=== PATIENT | female | born 1940 | race Caucasian/White ===

== ENCOUNTER 2017-02-26 13:00 | Day surgery (SDC) | payer MEDICARE, BC, SELFPAY | END 2017-02-26 13:49 | disposition home or self-care (01) | PROVIDERS: Family Provider Family Medicine; Visit Provider Nurse Anesthetist, Certified Registered | DX: M46.1 Sacroiliitis, not elsewhere classified (principal) | CPT/HCPCS: 27096; G0260; J1030 ==

== ENCOUNTER → 2017-04-01 09:43 | Outpatient (POV) | payer MEDICARE, BC, SELFPAY ==
[2017-04-01 10:23] VITALS: BP 132/65; PULSE 69; RESP 16; TEMP 36.8; O2SAT 94; BMI 34.5
--- NOTE | 2017-04-01 10:45 | P.CONS_ITS ---
[facility] Pain Management SOAP Note Subjective:: This patient is a pleasant 76-year-old white female who we have been treating for low back pain and right hip pain. She has had 2 right SI joint injections with minimal and not long-lasting relief. She has had a previous fusion at L4- L5. She has significant low back pain with radiation in both legs especially on the left side. I do believe that she is exhausted all conservative therapy including injections, oral medications and physical therapy. She is not a candidate for any further surgery at this time. We will seek approval and plan on intrathecal pump trial. Objective:: Alert and oriented ?3 in no acute distress. Patient does have an antalgic gait to the left. Motor strength of the lower extremities is 5/5. There is no gross sensory deficit. 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 This will be a single shot trial with intrathecal fentanyl 25 mcg.
== END ==
PROVIDERS: Family Provider Family Medicine; PCP Family Medicine; Visit Provider Anesthesiology
DX: M51.16 Intervertebral disc disorders with radiculopathy, lumbar region (principal)
CPT/HCPCS: 99212

== ENCOUNTER → 2017-04-24 09:03 | Outpatient (POV) | payer MEDICARE, BC, SELFPAY ==
[2017-04-24 10:33] VITALS: BP 177/73; PULSE 68; RESP 18; TEMP 36.6; O2SAT 93
--- NOTE | 2017-04-24 11:25 | HMH.PMCON ---
Assessment and Plan (1) Degenerative disc disease, lumbar Current visit: Yes Status: Acute Category: Medical Code(s): M51.36 - Other intervertebral disc degeneration, lumbar region (2) Postlaminectomy syndrome Current visit: Yes Status: Acute Category: Medical Code(s): M96.1 - Postlaminectomy syndrome, not elsewhere classified - Assessment and plan all Dx Assessment and Plan for all problems:: Intrathecal pain pump trial on 05/03/2017. Placement of intrathecal pain pump system on 05/22/2017 if approved and successful HPI - Data of Consult Patient: new to practice Consult date: 04/24/17 Requesting Physician: Loi Cardoza MD Primary Care Provider: Jordan Johnson MD Family Provider: Jordan Johnson MD - Consult Narrative Reason for consult: DDD lumbar spine with radiculopathy, postlaminectomy syndrome History of present illness: Ms. Reyes is a 76 year old female referred for possible placement of intrathecal pain pump system. The patient has degenerative disc disease lumbar spine with radiculopathy as well as postlaminectomy syndrome. Patient has significant debilitation related to her back problems. This is complicated for caring for her with ALS. She is failed conservative therapy including medications, therapy, epidurals etc. she is to undergo intrathecal pain pump trial on 05/03/2017. CC: Loi Cardoza MD [facility] History Comment: Illnesses-hypertension, hyperlipidemia, GERD, diabetes mellitus, osteoarthritis, depression Comment: Operations-appendectomy, C-sections ?2, hysterectomy, cholecystectomy, knee replacements ?4, lumbar fusion, breast reductive surgery Meds Allergies Allergy/AdvReac Type Severity Reaction Status Date / Time Iodinated Contrast Media - Allergy Unknown I-HIVES Unverified 02/26/17 14:36 Oral and [IODINATED CONTRAST- ORAL AND IV DYE]
--- NOTE | 2017-04-24 11:28 | P.CONS_ITS ---
Assessment and Plan (1) Degenerative disc disease, lumbar Current visit: Yes Status: Acute Category: Medical Code(s): M51.36 - Other intervertebral disc degeneration, lumbar region (2) Postlaminectomy syndrome Current visit: Yes Status: Acute Category: Medical Code(s): M96.1 - Postlaminectomy syndrome, not elsewhere classified - Assessment and plan all Dx Assessment and Plan for all problems:: Intrathecal pain pump trial on 05/03/2017. Placement of intrathecal pain pump system on 05/22/2017 if approved and successful HPI - Data of Consult Patient: new to practice Consult date: 04/24/17 Requesting Physician: Loi Cardoza MD Primary Care Provider: Jordan Johnson MD Family Provider: Jordan Johnson MD - Consult Narrative Reason for consult: DDD lumbar spine with radiculopathy, postlaminectomy syndrome History of present illness: Ms. Reyes is a 76 year old female referred for possible placement of intrathecal pain pump system. The patient has degenerative disc disease lumbar spine with radiculopathy as well as postlaminectomy syndrome. Patient has significant debilitation related to her back problems. This is complicated for caring for her with ALS. She is failed conservative therapy including medications, therapy, epidurals etc. she is to undergo intrathecal pain pump trial on 05/03/2017. CC: Loi Cardoza MD [facility] History Comment: Illnesses-hypertension, hyperlipidemia, GERD, diabetes mellitus, osteoarthritis, depression Comment: Operations-appendectomy, C-sections ?2, hysterectomy, cholecystectomy, knee replacements ?4, lumbar fusion, breast reductive surgery Meds Allergies Allergy/AdvReac Type Severity Reaction Status Date / Time Iodinated Contrast Media - Allergy Unknown I-HIVES Unverified 02/26/17 14:36 Oral and [IODINATED CONTRAST- ORAL AND IV DYE]
== END ==
PROVIDERS: Family Provider Family Medicine; PCP Family Medicine; Visit Provider Surgery
DX: M54.16 Radiculopathy, lumbar region (principal)
CPT/HCPCS: 99212

== ENCOUNTER → 2017-05-03 08:57 | Day surgery (SDC) | payer MEDICARE, BC, SELFPAY ==
[2017-05-03] VITALS (10 sets, daily range): BP systolic 107–167; BP diastolic 52–92; PULSE 55–62; RESP 16–18; TEMP 36.6–36.7; O2SAT 93–99; BMI 34.9
--- NOTE | 2017-05-03 10:01 | PC.NURSE ---
PHYSICAL THERAPY AT BEDSIDE FOR PRE-EVAL
--- NOTE | 2017-05-03 10:32 | P.PCN_ITS ---
- Procedure Date: 05/03/17 Time: 10:32 Anesthesiologist:: Indio Lockhart MD Complications:: None Pre-procedure Diagnosis:: Postlaminectomy syndrome of the lumbar spine with lumbar radiculopathy symptoms and degenerative disc disease of lumbar spine Post-procedure Diagnosis:: Same Indications for Procedure:: This patient is a pleasant 76-year-old white female who we are treating for low back pain and right hip pain. She has failed all conservative therapy including injections, oral medications and physical therapy. She is not a candidate for any further surgery. She has had previous lumbar fusion at L4- L5. She is increasing low back pain. I do believe she would be an ideal candidate for intrathecal therapy. I have explained the risk and benefits and answered. She presents for intrathecal pump trial today. Procedure Details:: Pain pump trial Informed consent was obtained and the risk and benefits of the procedure was explained to the patient. The patient was taken to the procedure room and placed prone on the procedure table. Patient was prepped and draped in sterile fashion. C-arm fluoroscopy was used to view the lumbar spine. The skin and subcutaneous tissues were anesthetized using lidocaine. I placed a 18-gauge spinal needle into the L3-L4 interspace above her fusion and advanced until clear CSF was obtained. After this intrathecal catheter was inserted and advanced very easily to the T12 vertebral body. The needle was withdrawn. We were able to freely withdraw clear CSF through the catheter. The catheter was secured in place and the patient was taken to recovery in stable condition. Patient tolerated the procedure well with no complications. After obtaining one set of vitals patient was bolused with 25 mcg of intrathecal fentanyl single shot. We reevaluated the patient after 30 minutes to 1 hour. She was also reassessed by physical therapy. Patient was 90-100% better with pain score of a 1 out of 10. Prior to the procedure her pain score was a 8 out of 10. She was much more active and ambulatory and was walking better. This is a successful trial. Patient wants to proceed with permanent placement. Intrathecal catheter was removed without complication and a Band-Aid was placed. We will plan on permanent placement which are thecal Dilaudid 1 mg/mL to start at 0.05 mg per day. Catheter tip will be at the T12 vertebral body. Plan and Disposition:: We will plan on permanent placement of intrathecal pain pump with Dilaudid 1 mg per ml discharged at 0.05 mg/day. We will plan on permanent placement on May 22, 2017.
--- NOTE | 2017-05-03 10:57 | PC.NURSE ---
MD AT BEDSIDE AND DOSED PT @ 1101, VSS, PT REPORTS PAIN LEVEL 2/10, PT DENIES ANY CONCERNS AT THIS TIME
--- NOTE | 2017-05-03 11:59 | PC.NURSE ---
PHYSICAL THERAPY AT BEDSIDE FOR POST EVAL
--- NOTE | 2017-05-03 12:09 | PC.NURSE ---
PT SITTING IN RECLINER, STATES PAIN IS MUCH BETTER, RATES PAIN 0/10 AT THIS TIME, LUNCH TRAY PROVIDED FOR PT, PT C/O SLIGHT ITCHING BENADRYL GIVEN PER MAR, PT DENIES ANY FURTHER NEEDS/CONCERNS
--- NOTE | 2017-05-03 12:59 | PC.NURSE ---
MD AT BEDSIDE FOR POST EVAL, PT DOING WELL, REPORTS NO PAIN AT THIS TIME
[2017-05-09 15:05] LABS: POC Glucose,Bedside 123 mg/dL (70-110)
== END ==
PROVIDERS: Family Provider Family Medicine; PCP Family Medicine; Visit Provider Anesthesiology
DX: M51.16 Intervertebral disc disorders with radiculopathy, lumbar region (principal); M96.1 Postlaminectomy syndrome, not elsewhere classified; E11.9 Type 2 diabetes mellitus without complications
CPT/HCPCS: 62323; 82962

== ENCOUNTER → 2017-05-13 11:29 | Outpatient (POV) | payer MEDICARE, BC, SELFPAY ==
[2017-05-13 11:36] VITALS: BP 146/70; PULSE 68; RESP 20; O2SAT 96; BMI 35.2
--- NOTE | 2017-05-13 12:20 | HMH.PAINSOAP ---
[facility] Pain Management SOAP Note Subjective:: Patient is a pleasant 76-year-old white female who olives up today after a intrathecal pain pump trial. Patient did very well after her trial and states that she got 90% relief for the entire day. Patient did have some itching with it however. Patient is ready to proceed with her permanent placement. She is scheduled for May 22. Patient states that she wants to become more functional and begin to lose weight. Patient's pain is in her low back. She states her pain is achy dull and constant. She does take Lyrica which helps her significantly. Patient is not on any blood thinners. ROS General: no recent weight change, no fever, no sleep disturbances Respiratory: no cough, no shortness of air, no recurring pulmonary infections Cardiovascular/Peripheral Vascular: No chest pain, No palpitations, no edema, no shortness of breath. Gastrointestinal: no incontinence, normal bowel movements reported Genitourinary: no incontinence Musculoskeletal: Back pain Psychiatric: normal mood/ affect, Neurological: [denies weakness in extremities], [denies balance issues] Objective:: Physical Exam General: Alert and oriented x3, no acute distress, pleasant and cooperative, [on room air] Lungs: Resps E/U, Symmetrical chest expansion, Eyes: PERRL Musculoskeletal: Flexion and extension of lumbar spine somewhat guarded secondary to pain, deep tendon reflexes normal, strength in upper and lower extremities [5/5], slightly antalgic gait noted Neurological: speech clear, global risk management director equal, no gross sensory deficits Assessment:: Postlaminectomy syndrome of the lumbar spine with lumbar radiculopathy Plan:: We will plan to move forward with the permanent pain pump placement on May 22. Patient is not on any blood thinners. Patient has been educated on realistic expectations of the therapy. Patient has had a successful pain pump trial. We will start the patient on Dilaudid 1 mg/mL and start her dose of 0.05 mg per day per Dr. Lockhart. This note was dictated using voice recognition software and may contain errors or omissions
--- NOTE | 2017-05-13 12:23 | P.CONS_ITS ---
[facility] Pain Management SOAP Note Subjective:: Patient is a pleasant 76-year-old white female who olives up today after a intrathecal pain pump trial. Patient did very well after her trial and states that she got 90% relief for the entire day. Patient did have some itching with it however. Patient is ready to proceed with her permanent placement. She is scheduled for May 22. Patient states that she wants to become more functional and begin to lose weight. Patient's pain is in her low back. She states her pain is achy dull and constant. She does take Lyrica which helps her significantly. Patient is not on any blood thinners. ROS General: no recent weight change, no fever, no sleep disturbances Respiratory: no cough, no shortness of air, no recurring pulmonary infections Cardiovascular/Peripheral Vascular: No chest pain, No palpitations, no edema, no shortness of breath. Gastrointestinal: no incontinence, normal bowel movements reported Genitourinary: no incontinence Musculoskeletal: Back pain Psychiatric: normal mood/ affect, Neurological: [denies weakness in extremities], [denies balance issues] Objective:: Physical Exam General: Alert and oriented x3, no acute distress, pleasant and cooperative, [ on room air] Lungs: Resps E/U, Symmetrical chest expansion, Eyes: PERRL Musculoskeletal: Flexion and extension of lumbar spine somewhat guarded secondary to pain, deep tendon reflexes normal, strength in upper and lower extremities [5/5], slightly antalgic gait noted Neurological: speech clear, scrap dealer equal, no gross sensory deficits Assessment:: Postlaminectomy syndrome of the lumbar spine with lumbar radiculopathy Plan:: We will plan to move forward with the permanent pain pump placement on May 22. Patient is not on any blood thinners. Patient has been educated on realistic expectations of the therapy. Patient has had a successful pain pump trial. We will start the patient on Dilaudid 1 mg/mL and start her dose of 0.05 mg per day per Dr. Lockhart. This note was dictated using voice recognition software and may contain errors or omissions
== END ==
PROVIDERS: Family Provider Family Medicine; PCP Family Medicine; Visit Provider Clinical Nurse Specialist Family Health
DX: M54.16 Radiculopathy, lumbar region (principal)
CPT/HCPCS: 99212

== ENCOUNTER 2017-05-22 07:27 | Day surgery (SDC) | payer MEDICARE, BC, SELFPAY ==
[2017-05-21 12:08] VITALS: BMI 34.5
[2017-05-22 08:04] VITALS: BP 149/84; PULSE 66; RESP 18; TEMP 36.8; O2SAT 97
[2017-05-22 08:24] LABS: POC Glucose,Bedside 102 mg/dL (70-110)
--- NOTE | 2017-05-22 08:30 | P.PN_ITS ---
[facility] Anesthesia Checklist - Patient Identification Patient Identification: Arm Band, Verbal (Name & ) - Structural Data Admitted From: Home Planned Operative Procedure/s: pain pump Consent for Planned Operative Procedure(s) Verified: Yes Verified Documents: Surgical Consent - Chart Verification Results Verified: CBC, BMP - Additional verifications Patient : No Anesthesia Reactions: No Hx Blood Transfusions: No Blood Transfusion Reaction: No Cephalosporin Allergy: No Previous Colonoscopy: No - Cardiovascular Assessment Heart Sounds: S1 & S2 Pulse Strength: Baseline Pulse Rhythm: Regular Peripheral Edema: No - Airway Assessment C-Spine Mobility Assessed: Yes TMJ Mobility Assessed: Yes Dentition: Good Dentition - Neurological Assessment Level of Consciousness: Awake, Alert, Appropriate Hx Seizures: No Numbness or tingling in extremities: No - Anesthesia Plan Anesthesia Risk discussed: Yes Anesthesia Plan: Verified ASA Class: III Anesthesia Type: MAC [facility] Anesthesia HX I have reviewed the patient's past medical history: Yes Medical History: Reports:: Diabetes Mellitus Type 2, Gastroesophageal Reflux Disease(GERD), Hiatal Hernia, Hyperlipidemia, Hypertension Denies:: Cancer, Diabetes Mellitus Type 1, MRSA, Seizures Other Medical History: Reports: Arthritis Laterality Cases: Bilateral: Total Knee Replacement Other Surgeries: Yes: Appendectomy, , Hysterectomy-TotalComment Only: Other (Lumbar fusion, breast reduction, GB) Amputation: No Fractures: Yes *Family Hx:: Asthma, Cancer, Hypertension, Stroke
[2017-05-22 08:34] LABS: Basophils # 0.1 K/mm3 (0-0.2); Basophils % 1.1 % (0.1-2.0); Eosinophils # 0.2 K/mm3 (0.0-0.4); Eosinophils % 3.2 % (0.1-12.0); Hematocrit 39.4 % (37.0-47.0); Hemoglobin 13.1 g/dL (12.2-16.2); Lymphocytes # 1.8 K/mm3 (0.7-4.5); Lymphocytes % 38.2 K/mm3 (10-50); Mean Corpuscular HGB Conc 33.4 g/dL (31.8-35.4); Mean Corpuscular Hemoglobin 29.1 pg (27.0-31.2); Mean Corpuscular Volume 87.1 fl (81-99); Mean Platelet Volume 8.2 fl (7.4-10.4); Monocytes # 0.4 K/mm3 (0.1-1.0); Monocytes % 8.1 % (1.7-9.3); Neutrophils # 2.3 K/mm3 (1.8-7.8); Neutrophils % 49.3 % (37.0-80.0); Platelet Count 217 K/mm3 (142-424); Red Blood Count 4.52 M/mm3 (4.20-5.40); Red Cell Distribution Width 13.5 % (11.5-17.5); White Blood Count 4.6 K/mm3 (4.8-10.8)
[2017-05-22 08:40] LABS: Anion Gap 11.8 mEq/L (5-15); Blood Urea Nitrogen 26 mg/dL (7-18); Carbon Dioxide 30 mmol/L (21.0-32.0); Chloride 100 mmol/L (98-107); Creatinine Clearance Estimated 63 mL/min (0-300); Creatinine,Serum 0.73 mg/dL (0.55-1.02); Estimated Glomerular Filt Rate 78 ml/min (>60); GFR (African American) 94 ML/MIN (>60); Glucose 103 mg/dL (74-106); Potassium 3.8 mmoL/L (3.5-5.1); Sodium 138 mmol/L (136-145)
--- NOTE | 2017-05-22 10:26 | P.OP_ITS ---
Date of procedure: 05/22/17 Pre-op Diagnosis:: Degenerative disc disease of lumbar spine with lumbar radiculopathy symptoms and postlaminectomy syndrome of lumbar spine. Post-op Diagnosis:: Same Procedure performed:: Permanent placement intrathecal catheter with tunneling for permanent intrathecal pain pump Surgeon:: Indio Lockhart MD CLINIC BUSINESS MANAGER:: Joe Dennis Anesthesia: MAC Estimated blood loss (mL): 5 Clinical Note:: This patient is a pleasant 76-year-old white female who we are treating for low back pain and right hip pain. She has failed all conservative treatment including injections, oral medications and physical therapy. She is not a candidate for any further surgery. She had previous lumbar fusion at L4-L5 and has increasing low back pain. She had a successful neuropsychological evaluation and had a successful intrathecal pump trial with 90% relief in her pain symptoms. She presents for permanent placement of intrathecal pain pump and cath today. We will start her on Dilaudid 1 mg/mL to start at 0.1 mg per day. I have explained the risk and benefits and answered all questions. Operative findings:: None Operative note:: Informed consent was obtained and the risk and benefits of the procedure was explained to the patient. Patient was taken to the OR and placed prone on the procedure table. She was prepped and draped in sterile fashion. C-arm fluoroscopy was used to view the lumbar. The skin and subcutaneous tissues adjacent to the L3-L4 interspace were anesthetized using lidocaine. I made an incision and dissected down to the lumbar paraspinous fascia. A 14-gauge spinal needle was then inserted in the next into the L3-L4 interspace above her hardware. After obtaining clear CSF intrathecal catheter was inserted and advanced very easily to the T10 vertebral body. The stylet of the catheter and the needle were withdrawn. The catheter was secured to the lumbar paraspinous fascia with an anchoring device and 2-0 Prolene. I prepared the pump with 20 mL 's of intrathecal Dilaudid 1 mg/mL while Dr. Cardoza prepared the pump pocket. I tunneled the catheter from the back to the pump pocket and attached the catheter to the pump. Both incisions were irrigated with bacitracin solution. The pump was anchored to the fascia with 2-0 Prolene. We were able to freely withdraw clear CSF through the side-port. Both incisions were then closed with 2-0 Vicryl followed by 4-0 nylon. The patient was placed in an abdominal binder taken to recovery in stable condition. The pump was interrogated and started at 0.1 mg per day of intrathecal Dilaudid. Patient tolerated the procedure well with no complications. We will follow-up with this patient in 2 weeks. The patient and the patient's family were counseled on side effects and risk of oversedation. If the patient experiences any side effects or signs or symptoms of oversedation there to go to the nearest emergency room and also call us in the pain clinic. We will initiate PTC at the 2 week appointment. Condition: stable Disposition: PACU Complications:: None
--- NOTE | 2017-05-22 10:43 | P.OP_ITS ---
Date of procedure: 05/22/17 Pre-op Diagnosis:: Postlaminectomy syndrome of the lumbar spine with radiculopathy, degenerative disc disease of the lumbar spine Post-op Diagnosis:: Same Procedure performed:: Placement of intrathecal pain pump generator Surgeon:: Loi Cardoza MD Anesthesia: MAC, local, LMA Estimated blood loss (mL): 5 Operative findings:: Not applicable Operative note:: Patient was placed prone on the operating table in her back and flank regions were prepped and draped in sterile fashion. Once adequate IV sedation was obtained via anesthesia and local anesthesia Xylocaine with epinephrine, a paraspinal incision was made by which was placed an intrathecal catheter into the intrathecal space to the area desired by . At this point a right flank incision was made after local anesthesia obtained under which made a pocket for placement of the reservoir. Catheter was passed from the paraspinal incision to the the pocket incision utilizing a tunneling device.. Generator connected to the catheter which is placed in the past. CSF was aspirated from the generator noting patency of the system. The subcutaneous tissues and closure impersistent 2-0 Vicryl. Skin was closed with stitches of 4 -0 nylon. Glue dressing and a binder applied to the wound. Patient tolerated the procedure well and was taken to recovery room in stable condition. Condition: stable Disposition: PACU Specimens:: None Complications:: None
[2017-05-22 11:13] VITALS: BP 129/75; PULSE 66; RESP 18; TEMP 36.7; O2SAT 90
[2017-05-22 11:24] VITALS: BP 103/61; PULSE 64; RESP 18; O2SAT 97
[2017-05-22 11:36] VITALS: BP 108/67; PULSE 59; RESP 18; TEMP 36.7; O2SAT 97
== END 2017-05-22 11:36 | disposition home or self-care (01) ==
LOC: OR 07:29
PROVIDERS: Family Provider Family Medicine; PCP Family Medicine; Visit Provider Anesthesiology
DX: M51.16 Intervertebral disc disorders with radiculopathy, lumbar region (principal); M96.1 Postlaminectomy syndrome, not elsewhere classified; Z79.899 Other long term (current) drug therapy
CPT/HCPCS: 62350; 62362; 80048; 82962; 85025; 96374; C1755; C1772; J3370

== ENCOUNTER → 2017-06-03 11:32 | Outpatient (POV) | payer MEDICARE, BC, SELFPAY ==
--- NOTE | 2017-06-03 12:17 | HMH.PMPROC ---
- Procedure Date: 06/03/17 Time: 12:15 Anesthesiologist:: Jessika Arnold APRN Complications:: None Pre-procedure Diagnosis:: degenerative disc disease of the lumbar spine with lumbar radiculopathy symptoms and postlaminectomy syndrome Post-procedure Diagnosis:: Same Indications for Procedure:: Patient is a pleasant 77-year-old white female who presents today for follow-up after intrathecal pain pump placement. Patient has been doing very well. Her stitches have been removed. Patient site clean and dry with no sign symptoms of infection. Patient states she is doing well with no side effects. Patient currently on Dilaudid 0.05 mg a day. Patient rates her pain a 3 out of 10 today. However she has has had some bad days where her pain ranges about an 8. Patient states her pain is achy and dull. Patient is active and helps with her 's care. ROS General: no recent weight change, no fever, no sleep disturbances Respiratory: no cough, no shortness of air, no recurring pulmonary infections Cardiovascular/Peripheral Vascular: No chest pain, No palpitations, no edema, no shortness of breath. Gastrointestinal: no incontinence, normal bowel movements reported Genitourinary: no incontinence Musculoskeletal: Back pain Psychiatric: normal mood/ affect, Neurological: [denies weakness in extremities], [denies balance issues] Physical Exam General: Alert and oriented x3, no acute distress, pleasant and cooperative, [on room air] Lungs: Resps E/U, Symmetrical chest expansion, Eyes: PERRL Musculoskeletal: Flexion and extension of lumbar spine somewhat guarded secondary to pain, deep tendon reflexes normal, strength in upper and lower extremities [5/5], slightly antalgic gait noted skin: Area over the pump shows no redness or drainage. Neurological: speech clear, despatching and receiving clerk equal, no gross sensory deficits Procedure Details:: Informed consent was obtained and the risks and benefits of the procedure were explained to the patient. Patient was taken to the procedure room where noninvasive monitoring was placed including noninvasive blood pressure cuff and noninvasive pulse oximeter. Patient's rate was changed from 0.05 mg a day of Dilaudid to 0.06 mg a day of Dilaudid. Patient's PTC was set up with 0.006 mg over 10 minutes every 4 hours with a max of 6 in a 24-hour period. Patient tolerated the procedure well Plan and Disposition:: I will follow-up with this patient in 2 weeks we will reassess her symptoms at that time. Patient has been instructed to call the office if she has any side effects prior to her visit.
--- NOTE | 2017-06-03 12:20 | P.PCN_ITS ---
- Procedure Date: 06/03/17 Time: 12:15 Anesthesiologist:: Jessika Arnold APRN Complications:: None Pre-procedure Diagnosis:: degenerative disc disease of the lumbar spine with lumbar radiculopathy symptoms and postlaminectomy syndrome Post-procedure Diagnosis:: Same Indications for Procedure:: Patient is a pleasant 77-year-old white female who presents today for follow-up after intrathecal pain pump placement. Patient has been doing very well. Her stitches have been removed. Patient site clean and dry with no sign symptoms of infection. Patient states she is doing well with no side effects. Patient currently on Dilaudid 0.05 mg a day. Patient rates her pain a 3 out of 10 today. However she has has had some bad days where her pain ranges about an 8. Patient states her pain is achy and dull. Patient is active and helps with her 's care. ROS General: no recent weight change, no fever, no sleep disturbances Respiratory: no cough, no shortness of air, no recurring pulmonary infections Cardiovascular/Peripheral Vascular: No chest pain, No palpitations, no edema, no shortness of breath. Gastrointestinal: no incontinence, normal bowel movements reported Genitourinary: no incontinence Musculoskeletal: Back pain Psychiatric: normal mood/ affect, Neurological: [denies weakness in extremities], [denies balance issues] Physical Exam General: Alert and oriented x3, no acute distress, pleasant and cooperative, [ on room air] Lungs: Resps E/U, Symmetrical chest expansion, Eyes: PERRL Musculoskeletal: Flexion and extension of lumbar spine somewhat guarded secondary to pain, deep tendon reflexes normal, strength in upper and lower extremities [5/5], slightly antalgic gait noted skin: Area over the pump shows no redness or drainage. Neurological: speech clear, under cutter equal, no gross sensory deficits Procedure Details:: Informed consent was obtained and the risks and benefits of the procedure were explained to the patient. Patient was taken to the procedure room where noninvasive monitoring was placed including noninvasive blood pressure cuff and noninvasive pulse oximeter. Patient's rate was changed from 0.05 mg a day of Dilaudid to 0.06 mg a day of Dilaudid. Patient's PTC was set up with 0.006 mg over 10 minutes every 4 hours with a max of 6 in a 24-hour period. Patient tolerated the procedure well Plan and Disposition:: I will follow-up with this patient in 2 weeks we will reassess her symptoms at that time. Patient has been instructed to call the office if she has any side effects prior to her visit.
[2017-06-03 12:23] VITALS: BP 125/72; PULSE 62; RESP 20; TEMP 36.7; O2SAT 92; BMI 34.7
== END ==
PROVIDERS: Family Provider Family Medicine; PCP Family Medicine; Visit Provider Clinical Nurse Specialist Family Health
DX: M54.16 Radiculopathy, lumbar region (principal)
CPT/HCPCS: 95991

== ENCOUNTER → 2017-06-18 11:17 | Outpatient (POV) | payer MEDICARE, BC, SELFPAY ==
[2017-06-18 11:29] VITALS: BP 138/75; PULSE 67; RESP 18; TEMP 36.2; O2SAT 98; BMI 34.9
--- NOTE | 2017-06-18 12:40 | HMH.PMPROC ---
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 Patient is doing very well with her current intrathecal Dilaudid dose of 0.06 mg a day. Patient rates her pain a 3 out of 10 today. Patient states she is having no side effects today. Patient states she does not use her bolus very much. Patient is having some right piriformis pain along with some left ankle pain. She has an appointment with the casing mixer. Patient would like small increase in her intrathecal therapy today and she is also interested in home refill. ROS General: no recent weight change, no fever, no sleep disturbances Respiratory: no cough, no shortness of air, no recurring pulmonary infections Cardiovascular/Peripheral Vascular: No chest pain, No palpitations, no edema, no shortness of breath. Gastrointestinal: no incontinence, normal bowel movements reported Genitourinary: no incontinence Musculoskeletal: Back pain, right piriformis pain, left ankle pain Psychiatric: normal mood/ affect, [denies depression], [denies anxiety] Neurological: [denies weakness in extremities], [denies balance issues] Physical Exam General: Alert and oriented x3, no acute distress, pleasant and cooperative, [on room air] Lungs: Resps E/U, Symmetrical chest expansion, Eyes: PERRL Musculoskeletal: Flexion and extension of bar spine somewhat guarded secondary to pain, deep tendon reflexes normal, strength in upper and lower extremities [5/5], slightly antalgic gait noted Neurological: speech clear, sales and merchandising representative equal, no gross sensory deficits Procedure Details:: Informed consent was obtained and the risk and benefits of the procedure were explained to the patient. Patient was taken to the procedure room where noninvasive monitoring was placed including noninvasive blood pressure cuff and noninvasive pulse oximeter. Patient's rate was changed from 0.0 6 mg of Dilaudid a day to 0.075 mg of Dilaudid a day. Patient's PTC remains at 0.006 mg over 10 minutes every 4 hours. Patient tolerated the procedure well. Plan and Disposition:: We will begin the process of getting this patient and listed and enrolled in our home refill program. Patient will follow-up as needed. Patient is to call if she is interested in a piriformis injection or in any further evaluation of her left ankle. She was instructed to call the office if she shows any side effects from increase in pain pump. This note was dictated using voice recognition software and may contain errors or omissions
--- NOTE | 2017-06-18 12:45 | P.PCN_ITS ---
- Procedure Date: 06/18/17 Time: 11:50 Anesthesiologist:: Jessika Arnold APRN Complications:: None Pre-procedure Diagnosis:: Degenerative disc disease of the lumbar spine with lumbar radiculopathy symptoms and postlaminectomy syndrome Post-procedure Diagnosis:: Same Indications for Procedure:: Patient is a pleasant 77-year-old white female who presents today for follow- up. Patient is doing very well with her current intrathecal Dilaudid dose of 0.06 mg a day. Patient rates her pain a 3 out of 10 today. Patient states she is having no side effects today. Patient states she does not use her bolus very much. Patient is having some right piriformis pain along with some left ankle pain. She has an appointment with the decal applier. Patient would like small increase in her intrathecal therapy today and she is also interested in home refill. ROS General: no recent weight change, no fever, no sleep disturbances Respiratory: no cough, no shortness of air, no recurring pulmonary infections Cardiovascular/Peripheral Vascular: No chest pain, No palpitations, no edema, no shortness of breath. Gastrointestinal: no incontinence, normal bowel movements reported Genitourinary: no incontinence Musculoskeletal: Back pain, right piriformis pain, left ankle pain Psychiatric: normal mood/ affect, [denies depression], [denies anxiety] Neurological: [denies weakness in extremities], [denies balance issues] Physical Exam General: Alert and oriented x3, no acute distress, pleasant and cooperative, [ on room air] Lungs: Resps E/U, Symmetrical chest expansion, Eyes: PERRL Musculoskeletal: Flexion and extension of bar spine somewhat guarded secondary to pain, deep tendon reflexes normal, strength in upper and lower extremities [5 /5], slightly antalgic gait noted Neurological: speech clear, consumer insights specialist equal, no gross sensory deficits Procedure Details:: Informed consent was obtained and the risk and benefits of the procedure were explained to the patient. Patient was taken to the procedure room where noninvasive monitoring was placed including noninvasive blood pressure cuff and noninvasive pulse oximeter. Patient's rate was changed from 0.0 6 mg of Dilaudid a day to 0.075 mg of Dilaudid a day. Patient's PTC remains at 0.006 mg over 10 minutes every 4 hours. Patient tolerated the procedure well. Plan and Disposition:: We will begin the process of getting this patient and listed and enrolled in our home refill program. Patient will follow-up as needed. Patient is to call if she is interested in a piriformis injection or in any further evaluation of her left ankle. She was instructed to call the office if she shows any side effects from increase in pain pump. This note was dictated using voice recognition software and may contain errors or omissions
--- NOTE | 2017-07-02 13:26 | PC.PHONENOTE ---
Called in Rx for Diclofenac 75mg BID with 2 refills per providers order. pt instructed to stop taking Meloxicam. understanding verbalized
== END ==
PROVIDERS: Family Provider Family Medicine; PCP Family Medicine; Visit Provider Clinical Nurse Specialist Family Health
DX: M54.16 Radiculopathy, lumbar region (principal)
CPT/HCPCS: 95991

== ENCOUNTER → 2017-08-06 09:51 | Outpatient (POV) | payer MEDICARE, BC, SELFPAY ==
[2017-08-06 10:14] VITALS: BP 132/69; PULSE 55; RESP 18; O2SAT 98; BMI 41.0
--- NOTE | 2017-08-06 12:03 | HMH.PAINSOAP ---
[facility] Pain Management SOAP Note Subjective:: Patient is a pleasant 77-year-old white female who presents today for follow-up after right piriformis injection. She states she has no pain since then. Patient is also doing well with her intrathecal Dilaudid pain pump. Patient is going to be doing home refill. Patient has been diagnosed with charcot ankle syndrome. Patient is being followed by a medical education specialist for this. Patient and I discussed the procedure if she needed an MRI on her ankle. Patient rates her pain at 3 out of 10 today. And denies any side effects to her current intrathecal infusion. ROS General: no recent weight change, no fever, no sleep disturbances Respiratory: no cough, no shortness of air, no recurring pulmonary infections Cardiovascular/Peripheral Vascular: No chest pain, No palpitations, no edema, no shortness of breath. Gastrointestinal: no incontinence, normal bowel movements reported Genitourinary: no incontinence Musculoskeletal: Back pain, left ankle pain Psychiatric: normal mood/ affect Neurological: [denies weakness in extremities], [denies balance issues] Objective:: Physical Exam General: Alert and oriented x3, no acute distress, pleasant and cooperative, [on room air] Lungs: Resps E/U, Symmetrical chest expansion, Eyes: PERRL Musculoskeletal: Flexion and extension of lumbar spine somewhat guarded secondary to pain, deep tendon reflexes normal, strength in upper and lower extremities [5/5], [abnormal gait noted], patient does have a cast and boot on left ankle Neurological: speech clear, tuber machine operator equal, no gross sensory deficits Assessment:: Degenerative disc disease of the lumbar spine, lumbar radiculopathy, postlaminectomy syndrome, charcot syndrome Plan:: We will follow-up with this patient in 6 months. Patient is going to be continuing home refill program. Patient's going to be followed by a medical education specialist in regards to her ankle pain. Patient is doing extremely well at this time. This note was dictated using voice recognition software and may contain errors or omissions
--- NOTE | 2017-08-06 12:07 | P.CONS_ITS ---
[facility] Pain Management SOAP Note Subjective:: Patient is a pleasant 77-year-old white female who presents today for follow-up after right piriformis injection. She states she has no pain since then. Patient is also doing well with her intrathecal Dilaudid pain pump. Patient is going to be doing home refill. Patient has been diagnosed with charcot ankle syndrome. Patient is being followed by a battalion chief for this. Patient and I discussed the procedure if she needed an MRI on her ankle. Patient rates her pain at 3 out of 10 today. And denies any side effects to her current intrathecal infusion. ROS General: no recent weight change, no fever, no sleep disturbances Respiratory: no cough, no shortness of air, no recurring pulmonary infections Cardiovascular/Peripheral Vascular: No chest pain, No palpitations, no edema, no shortness of breath. Gastrointestinal: no incontinence, normal bowel movements reported Genitourinary: no incontinence Musculoskeletal: Back pain, left ankle pain Psychiatric: normal mood/ affect Neurological: [denies weakness in extremities], [denies balance issues] Objective:: Physical Exam General: Alert and oriented x3, no acute distress, pleasant and cooperative, [ on room air] Lungs: Resps E/U, Symmetrical chest expansion, Eyes: PERRL Musculoskeletal: Flexion and extension of lumbar spine somewhat guarded secondary to pain, deep tendon reflexes normal, strength in upper and lower extremities [5/5], [abnormal gait noted], patient does have a cast and boot on left ankle Neurological: speech clear, manager cost equal, no gross sensory deficits Assessment:: Degenerative disc disease of the lumbar spine, lumbar radiculopathy, postlaminectomy syndrome, charcot syndrome Plan:: We will follow-up with this patient in 6 months. Patient is going to be continuing home refill program. Patient's going to be followed by a battalion chief in regards to her ankle pain. Patient is doing extremely well at this time. This note was dictated using voice recognition software and may contain errors or omissions
== END ==
PROVIDERS: Family Provider Family Medicine; PCP Family Medicine; Visit Provider Clinical Nurse Specialist Family Health
DX: M54.16 Radiculopathy, lumbar region (principal); A52.16 Charcot's arthropathy (tabetic)
CPT/HCPCS: 99212

== ENCOUNTER → 2017-09-03 11:14 | Outpatient (CLI) | payer MEDICARE, BC, SELFPAY ==
--- NOTE | 2017-09-03 11:15 | MM_ITS ---
MM Dig screening mamm BI w/CAD ORDERING PHYSICIAN : Jordan Johnson MD PATIENT AGE: 77 years GENDER: Female COMPARISON: We called & had been awaiting outside studies from [facility]. However none have arrived.. Study now has been presented back to me at this time for interpretation INDICATION: ITS.REASON: SCREENING There is a history of bilateral breast reduction. Patient uses estrogen cream apparently. No new complaints Family history. Noncontributory TECHNIQUE: Standard CC and MLO images were obtained. R2 CAD reviewed. FINDINGS: Lower density breast with minimal to moderate fibrolinear elements bilaterally some scattered areas of nodularity but no dominant mass nor suspicious calcifications in either breast. I believe a bilateral follow-up in one year would be adequate and would be recommended, and encouraged to confirm stable baseline character of what most likely some scattered small insignificant nodular densities. For example there is a tiny 3.5 mm nodule at the right retroareolar region with minimal calcification and does not appear to be significance. Also deep lateral left breast Benign intramammary lymph node most likely accounts for the density deep axillary left breast on cc view 8.5 mm. . IMPRESSION: Outside films could not be obtained No suspicious lesions or findings or masses. There are some mild asymmetry of the breast minor asymmetric densities which are not of concern and follow-up in one year adequate. Minor asymmetry likely in part related to Previous breast reduction Bilateral follow-up recommended and would be encouraged to confirm stable baseline character BI-RADS Category: 2 Benign Finding(s) RECOMMENDED FOLLOW-UP: 1YR 1 YEAR FOLLOW-UP (A letter has been sent to the patient regarding results of the study.)
[2017-09-03 12:45] LABS: Basophils % 0.6 % (0.1-2.0); Eosinophils # 0.1 K/mm3 (0.0-0.4); Eosinophils % 3.4 % (0.1-12.0); Hematocrit 34.6 % (37.0-47.0); Hemoglobin 11.3 g/dL (12.2-16.2); Lymphocytes # 1.4 K/mm3 (0.7-4.5); Lymphocytes % 36.5 K/mm3 (10-50); Mean Corpuscular HGB Conc 32.7 g/dL (31.8-35.4); Mean Corpuscular Volume 85.6 fl (81-99); Monocytes # 0.3 K/mm3 (0.1-1.0); Monocytes % 7.4 % (1.7-9.3); Neutrophils % 52.1 % (37.0-80.0); Platelet Count 207 K/mm3 (142-424); Red Blood Count 4.05 M/mm3 (4.20-5.40); Red Cell Distribution Width 13.8 % (11.5-17.5); White Blood Count 3.8 K/mm3 (4.8-10.8)
[2017-09-03 13:10] LABS: Hemoglobin A1C 5.6 % (0.0-7.0)
[2017-09-03 13:11] LABS: Alanine Aminotransferase 30 U/L (12-78); Albumin Level 3.8 gm/dL (3.4-5.0); Albumin/Globulin Ratio 1.3 (1.1-1.8); Alkaline Phosphatase 47 U/L (46-116); Aspartate Amino Transferase 27 U/L (15-37); Bilirubin,Total 0.6 mg/dL (0.2-1.0); Blood Urea Nitrogen 20 mg/dL (7-18); Calcium 8.8 mg/dL (8.5-10.1); Carbon Dioxide 27 mmol/L (21.0-32.0); Chloride 100 mmol/L (98-107); Chol/HDL Ratio 7.9 (1-3.5); Cholesterol 143 mg/dL (140-200); Creatinine,Serum 0.83 mg/dL (0.55-1.02); Estimated Glomerular Filt Rate 67 ml/min (>60); GFR (African American) 81 ML/MIN (>60); Glucose 90 mg/dL (74-106); HDL Cholesterol 18 mg/dL (29-89); LDL Cholesterol 65 mg/dL (0-130); Sodium 136 mmol/L (136-145); Thyroid Stimulating Hormone 1.06 uIU/ml (0.358-3.740); Total Protein,Serum 6.8 gm/dL (6.4-8.2); Triglycerides 298 mg/dL (30-200); VLDL Cholesterol 60 mg/dL (0-40)
[2017-09-03 16:30] LABS: Creatinine,Urine Random 44 mg/dL (20-320)
[2017-09-05 08:05] LABS: Vitamin D 25 Hydroxy 24.6 ng/mL (30.0-100.0)
[2017-09-05 08:08] LABS: Microalbumin, Urine 3.1 ug/mL (Not Estab.)
== END ==
PROVIDERS: Family Provider Family Medicine; PCP Family Medicine; Visit Provider Family Medicine
DX: Z12.31 Encounter for screening mammogram for malignant neoplasm of breast (principal); Z79.899 Other long term (current) drug therapy; E11.9 Type 2 diabetes mellitus without complications; E78.5 Hyperlipidemia, unspecified
CPT/HCPCS: 36415; 77067; 80053; 80061; 82043; 82570; 82652; 83036; 84443; 85025

== ENCOUNTER → 2018-01-07 11:45 | Outpatient (POV) | payer MEDICARE, BC, SELFPAY ==
[2018-01-07 11:53] VITALS: BP 149/71; PULSE 61; RESP 18; O2SAT 98; BMI 33.5
--- NOTE | 2018-01-07 12:20 | HMH.PAINSOAP ---
[facility] Pain Management SOAP Note Subjective:: Patient is a pleasant 77-year-old white female who presents today for follow-up. Patient has an intrathecal pain pump with Dilaudid at this time. Patient is doing extremely well. She denies any side effects. Patient is having her urine drug screen by home refill. Patient is currently on a dose of 0.075 mg/day. Patient rates her pain a 0 out of 10 ROS General: no recent weight change, no fever, no sleep disturbances Respiratory: no cough, no shortness of air, no recurring pulmonary infections Cardiovascular/Peripheral Vascular: No chest pain, No palpitations, no edema, no shortness of breath. Gastrointestinal: no incontinence, normal bowel movements reported Genitourinary: no incontinence Musculoskeletal: Foot pain at times back pain at times Psychiatric: normal mood/ affect, Neurological: [denies weakness in extremities], [denies balance issues] Objective:: Physical Exam General: Alert and oriented x3, no acute distress, pleasant and cooperative, [on room air] Lungs: Resps E/U, Symmetrical chest expansion, Eyes: PERRL Musculoskeletal: Flexion and extension of lumbar spine somewhat guarded secondary to pain, deep tendon reflexes normal, strength in upper and lower extremities [5/5], slightly antalgic gait noted Neurological: speech clear, executive asst equal, no gross sensory deficits Assessment:: Generative disc disease lumbar spine, lumbar radiculopathy, postlaminectomy syndrome Plan:: We will follow-up with the patient in 6 months and reassess her symptoms at that time. Patient has been instructed to call the office if she has any issues prior to her next appointment.
--- NOTE | 2018-01-07 12:23 | P.CONS_ITS ---
[facility] Pain Management SOAP Note Subjective:: Patient is a pleasant 77-year-old white female who presents today for follow-up. Patient has an intrathecal pain pump with Dilaudid at this time. Patient is doing extremely well. She denies any side effects. Patient is having her urine drug screen by home refill. Patient is currently on a dose of 0.075 mg/day. Patient rates her pain a 0 out of 10 ROS General: no recent weight change, no fever, no sleep disturbances Respiratory: no cough, no shortness of air, no recurring pulmonary infections Cardiovascular/Peripheral Vascular: No chest pain, No palpitations, no edema, no shortness of breath. Gastrointestinal: no incontinence, normal bowel movements reported Genitourinary: no incontinence Musculoskeletal: Foot pain at times back pain at times Psychiatric: normal mood/ affect, Neurological: [denies weakness in extremities], [denies balance issues] Objective:: Physical Exam General: Alert and oriented x3, no acute distress, pleasant and cooperative, [on room air] Lungs: Resps E/U, Symmetrical chest expansion, Eyes: PERRL Musculoskeletal: Flexion and extension of lumbar spine somewhat guarded secondary to pain, deep tendon reflexes normal, strength in upper and lower extremities [5/5], slightly antalgic gait noted Neurological: speech clear, horizontal boring mill set up operator equal, no gross sensory deficits Assessment:: Generative disc disease lumbar spine, lumbar radiculopathy, postlaminectomy syndrome Plan:: We will follow-up with the patient in 6 months and reassess her symptoms at that time. Patient has been instructed to call the office if she has any issues prior to her next appointment.
== END ==
PROVIDERS: PCP Family Medicine; Visit Provider Clinical Nurse Specialist Family Health
DX: M51.16 Intervertebral disc disorders with radiculopathy, lumbar region (principal); M96.1 Postlaminectomy syndrome, not elsewhere classified
CPT/HCPCS: 99202

== ENCOUNTER → 2018-01-22 12:11 | Outpatient (POV) | payer MEDICARE, BC, SELFPAY ==
[2018-01-22 12:25] VITALS: BP 154/82; PULSE 62; RESP 16; O2SAT 94; BMI 34.2
--- NOTE | 2018-01-22 12:59 | HMH.PMPROC ---
- Procedure Date: 01/22/18 Time: 13:00 Anesthesiologist:: Indio Lockhart MD Complications:: None Pre-procedure Diagnosis:: Degenerative disc disease of lumbar spine with lumbar radiculopathy symptoms Post-procedure Diagnosis:: Same Indications for Procedure:: This patient is a pleasant 77-year-old white female who we are treating for low back pain with lumbar radiculopathy symptoms. She is undergoing home refill. She underwent refill last Saturday. She was doing well up until Saturday when she had some increasing back pain. Now she is having to use her boluses and she has increasing pain in her back and somewhat down her legs. There is no changes in her neurological exam. Motor strength of lower extremities is 5/5. There is no gross sensory deficit she continues to have an antalgic gait. We will increase her intrathecal hydromorphone infusion to see if this helps with her pain symptoms. Procedure Details:: Adjustment of intrathecal pain pump Informed consent was obtained and the risk and benefits of the procedure was explained to the patient. Patient was taken to the procedure room. Pump was interrogated. Intrathecal Dilaudid infusion was things to 0.1 mg/day from 0.075 mg/day. Patient tolerated the procedure well with no complications. Plan and Disposition:: We will follow-up with her in 2 weeks. Will reevaluate symptoms at that time
== END ==
PROVIDERS: PCP Family Medicine; Visit Provider Anesthesiology
DX: M51.16 Intervertebral disc disorders with radiculopathy, lumbar region (principal)
CPT/HCPCS: 62368

== ENCOUNTER → 2018-06-10 14:02 | Outpatient (POV) | payer MEDICARE, BC, SELFPAY ==
[2018-06-10 14:19] VITALS: BP 165/81; PULSE 70; RESP 18; O2SAT 92; BMI 34.2
--- NOTE | 2018-06-10 14:37 | HMH.PMPROC ---
- Procedure Date: 06/10/18 Time: 14:37 Anesthesiologist:: Jessika Arnold APRN Complications:: None Pre-procedure Diagnosis:: Degenerative disc disease lumbar spine with lumbar radiculopathy Post-procedure Diagnosis:: Same Indications for Procedure:: Is a pleasant 78-year-old white female who presents today for intrathecal pain pump reprogram. She is currently on a 1.1 mg dose of morphine. She has had increased pain rating her pain a 6 out of 10 mostly in her low back and leg. She denies side effects to her medication. Physical Exam General: Alert and oriented x3, no acute distress, pleasant and cooperative, [on room air] Lungs: Resps E/U, Symmetrical chest expansion, Eyes: PERRL Musculoskeletal: Flexion and extension of lumbar spine somewhat guarded secondary to pain, deep tendon reflexes normal, strength in upper and lower extremities [5/5], [abnormal gait noted] Neurological: speech clear, leather novelty parts cutter equal, no gross sensory deficits Procedure Details:: Informed consent was obtained and the risk and benefits of the procedure were explained to the patient. The patient was taken to the procedure room where noninvasive monitoring was placed including noninvasive blood pressure cuff and pulse oximeter. Patient's pump was interrogated and reprogrammed. The infusion rate was increased to 0.13 mg/day. The patient tolerated the procedure well. Plan and Disposition:: I will see the patient back in 2 week and reassess her symptoms at that time. Patient's been instructed to call our office if she has any issues prior to her next appointment. Dr. Lockhart has reviewed this note and agrees with this plan of care. This note was dictated using voice recognition software and may contain errors or omissions
== END ==
PROVIDERS: PCP Family Medicine; Visit Provider Clinical Nurse Specialist Family Health
DX: M51.16 Intervertebral disc disorders with radiculopathy, lumbar region (principal)
CPT/HCPCS: 62368

== ENCOUNTER → 2018-06-24 10:45 | Outpatient (POV) | payer MEDICARE, BC, SELFPAY ==
[2018-06-24 10:49] VITALS: BP 148/75; PULSE 62; RESP 18; O2SAT 98; BMI 34.2
--- NOTE | 2018-06-24 13:06 | HMH.PMPROC ---
- Procedure Date: 06/24/18 Time: 13:06 Anesthesiologist:: Jessika Arnold APRN Complications:: None Pre-procedure Diagnosis:: Degenerative disc disease lumbar spine with lumbar radiculopathy Post-procedure Diagnosis:: Same Indications for Procedure:: Patient is a pleasant 78-year-old white female who presents today for intrathecal pain pump reprogram. She is currently on a dose of 0.13 mg of Dilaudid. Patient rates her pain a 4 out of 10. She states she needs a small increase she denies side effects. Physical Exam General: Alert and oriented x3, no acute distress, pleasant and cooperative, [on room air] Lungs: Resps E/U, Symmetrical chest expansion, Eyes: PERRL Musculoskeletal: Flexion and extension of lumbar spine somewhat guarded secondary to pain, deep tendon reflexes normal, strength in upper and lower extremities [5/5], [abnormal gait noted] Neurological: speech clear, physical testing supervisor equal, no gross sensory deficits Procedure Details:: Informed consent was obtained and the risk and benefits of the procedure were explained to the patient. The patient was taken to the procedure room where noninvasive monitoring was placed including noninvasive blood pressure cuff and pulse oximeter. Patient's pump was interrogated and reprogrammed. The infusion rate was increased to 0.17 mg/day of Dilaudid. The patient tolerated the procedure well. Plan and Disposition:: I will see the patient back at her next intrathecal pain pump refill and reprogram she is been instructed to call the office if she has any issues prior to her next appointment. Dr. Lockhart has reviewed this note and agrees with this plan of care. This note was dictated using voice recognition software and may contain errors or omissions
== END ==
PROVIDERS: PCP Family Medicine; Visit Provider Clinical Nurse Specialist Family Health
DX: M51.16 Intervertebral disc disorders with radiculopathy, lumbar region (principal)
CPT/HCPCS: 62368

== ENCOUNTER → 2018-10-20 08:07 | Outpatient (CLI) | payer MEDICARE, BC, SELFPAY ==
--- NOTE | 2018-10-20 08:30 | MM_ITS ---
MM Dig screening mamm BI w/CAD ORDERING PHYSICIAN : Jordan Johnson MD PATIENT AGE: 78 years GENDER: Female [facility] mamm[facility] studies from May 2016 HISTORY: Routine SCREENING. Utilized as Estrogen cream. No new complaints. Previous bilateral breast reduction Noncontributory family history. TECHNIQUE: Standard CC and MLO images were obtained. R2 CAD reviewed. Additional left axillary cc view included FINDINGS: Minimal residual fibroglandular elements both breast . Overall lower density breast mild diffuse fatty replacement No significant new findings compared to prior studies. No suspicious or dominant mass nor suspicious calcification. No architectural distortion. RIGHT BREAST:. No new areas of significant concern The small nodular density at the medial retroareolar region and remains stable since at least 2016. Benign appearance and can be followed LEFT BREAST:No new areas significant concern. A benign dense calcifications at the medial deep left breast. Stable lymph nodes towards axillary left breast and deep lateral left breast.. IMPRESSION: Stable bilateral mammogram. No new areas of concern. Bilateral follow-up in one year recommended BI-RADS Category: 1 Negative RECOMMENDED FOLLOW-UP: 1YR 1 YEAR FOLLOW-UP (A letter has been sent to the patient regarding results of the study.)
== END ==
PROVIDERS: PCP Family Medicine; Visit Provider Family Medicine
DX: Z12.31 Encounter for screening mammogram for malignant neoplasm of breast (principal)
CPT/HCPCS: 77067

== ENCOUNTER → 2018-10-27 08:46 | Outpatient (CLI) | payer MEDICARE, BC, SELFPAY ==
--- NOTE | 2018-10-27 08:53 | XR_ITS ---
PROCEDURE: XR SHOULDER RT MIN 2V CLINICAL INDICATION: shoulder pain COMPARISON: No exams were available for comparison FINDINGS: There are moderate to severe osteoarthritic changes of the glenohumeral joint with loss of joint space and osteophyte formation. No fracture or dislocation. Osteoarthritic changes are present at the AC joint as well. IMPRESSION: Osteoarthritis Dictated by: Giovany Mcelroy MD 10/27/2018 11:14 Signed by: <Electronically signed by Giovany Mcelroy MD in [place]> 10/27/2018 11:14
== END ==
PROVIDERS: PCP Family Medicine; Visit Provider Orthopaedic Surgery
DX: M25.511 Pain in right shoulder (principal)
CPT/HCPCS: 73030

== ENCOUNTER → 2019-11-26 09:55 | Outpatient (CLI) | payer MEDICARE, BC, SELFPAY ==
--- NOTE | 2019-11-26 10:02 | MM_ITS ---
PROCEDURE: MM DIG SCREENING MAMM BI W/CAD Digital Breast Tomosynthesis Included CLINICAL INDICATION: SCREENING There is no personal or family history of breast cancer. There has been previous breast reduction surgery. COMPARISON: MG [facility] from 05/17/2016 [facility] MM Dig screening mamm BI w/CAD from 09/03/2017 MG MM DIG SCREENING MAMM BI W/CAD from 10/20/2018 TECHNIQUE: Standard CC and MLO images and 3D Tomosynthesis was obtained. R2 CAD reviewed. FINDINGS: Moderate diffuse fibroglandular densities are seen throughout both breasts. There are couple of benign-appearing calcifications left breast. There is no new or suspicious lesion in either breast and no suspicious microcalcifications. There are small stable nodular densities near the axillary tail left breast probably low-lying nodes. IMPRESSION: Fibrofatty parenchyma no suspicious lesions seen BI-RAD Category: 2 Benign Finding(s) FOLLOW-UP: 1YR 1 Year Follow-up (A letter has been sent to the patient regarding results of the study.) Dictated by: Dr. Oni Lawrence MD 11/27/2019 13:51 Dr. Oni Lawrence MD in [place] 11/27/2019 13:51
== END ==
PROVIDERS: PCP Family Medicine; Visit Provider Family Medicine
DX: Z12.31 Encounter for screening mammogram for malignant neoplasm of breast (principal)
CPT/HCPCS: 77063; 77067

== ENCOUNTER → 2020-02-08 11:08 | Outpatient (POV) | payer MEDICARE, BC, SELFPAY ==
[2020-02-08 11:45] VITALS: BP 132/74; PULSE 74; RESP 18; TEMP 36.8; O2SAT 98; BMI 33.2
--- NOTE | 2020-02-08 12:59 | P.CONS_ITS ---
[facility] Pain Management SOAP Note Subjective:: Patient is a 79-year-old white female who presents today for follow-up. Patient has an intrathecal pain pump and is being seen by home refill. Patient was seen last year. Patient denies side effects to her medication. [facility] #[id number] reviewed and appropriate. She is on Lyrica [address] Johnson. She is also been on diclofenac 75 mg 1 p.o. twice daily. We will refill this today. Patient did have her hip replaced. Patient is not utilizing a cane at this time. She rates her pain a 0 out of 10 ROS General: no recent weight change, no fever, no sleep disturbances Respiratory: no cough, no shortness of air, no recurring pulmonary infections Cardiovascular/Peripheral Vascular: No chest pain, No palpitations, no edema, no shortness of breath. Gastrointestinal: no new onset incontinence, normal bowel movements reported Genitourinary: no new onset incontinence Musculoskeletal: Back pain at times Psychiatric: normal mood/ affect Neurological: [denies new onset weakness in extremities], [denies new onset balance issues] Objective:: Physical Exam General: Alert and oriented x3, no acute distress, pleasant and cooperative, [on room air] Lungs: Resps E/U, Symmetrical chest expansion, Eyes: PERRL Musculoskeletal: Flexion and extension of lumbar spine somewhat guarded secondary to pain, deep tendon reflexes normal, strength in upper and lower extremities [5/5], slightly antalgic gait noted Neurological: speech clear, advertising assistant manager equal, no gross sensory deficits Assessment:: Degenerative disc disease lumbar spine lumbar radiculopathy Plan:: We will see the patient back in 6 months reassess her symptoms at that time we will also refill her diclofenac 75 mg 1 p.o. twice daily and give her 3 months worth of medication. She has been instructed to call the office if she has any issues prior to her next appointment. Dr. Lockhart has reviewed this note and agrees with this plan of care. This note was dictated using voice recognition software and may contain errors or omissions [facility] History I have reviewed the patient's past medical history: Yes Medical History: Reports:: Gastroesophageal Reflux Disease(GERD), Hiatal Hernia, Hyperlipidemia, Hypertension Denies:: Cancer, Diabetes Mellitus Type 1, Diabetes Mellitus Type 2, MRSA, Seizures *Have you ever received a pneumonia vaccine?: No *Have you received a flu vaccine this season?: No Other Medical History: Reports: Arthritis. Denies: Blood Transfusion Reaction Laterality Cases: Right: Carpal Tunnel Release Other Surgeries: Yes: Appendectomy, Cholecystectomy, Colonoscopy, , EGD, Hysterectomy-Total, Other Amputation: No Fractures: No - *Social History Smoking Status: Never smoker Alcohol Intake: never *Occupational Status:: other Housing: house Household Members: other *Travel in the last 8 weeks: None Family Hx:: Asthma, Cancer, Hypertension, Stroke
== END ==
PROVIDERS: PCP Family Medicine; Visit Provider Clinical Nurse Specialist Family Health
DX: M51.16 Intervertebral disc disorders with radiculopathy, lumbar region (principal)
CPT/HCPCS: 99212

== ENCOUNTER → 2020-11-18 14:52 | Outpatient (POV) | payer MEDICARE, BC, SELFPAY ==
[2020-11-18 14:45] VITALS: BP 139/74; PULSE 90; RESP 20; TEMP 36.2; O2SAT 99; BMI 31.2
--- NOTE | 2020-11-18 14:54 | HMH.PAINSOAP ---
[facility] Pain Management SOAP Note Subjective:: Patient is a pleasant 79-year-old white female who we are treating for low back pain with lumbar radiculopathy symptoms and postlaminectomy syndrome lumbar spine. She currently has an intrathecal hydromorphone pain pump going at 0.17 mg/day. She has been told that she does need back surgery. Dr. Acevedo will not operate on her because she has not been vaccinated. Given her CT scan results she does have significant stenosis above her level of fusion and I do feel that she may need neurosurgical intervention. We will refer to Dr. Garces and Dr. Morales for evaluation to see if she needs neurosurgical intervention. In the meantime we will continue her hydromorphone pump at 0.17 mg/day with PTC boluses of 0.06 mg up to 6 times a day. Objective:: Alert and oriented x3 no acute distress. Patient does have significant difficulty walking and has neurogenic claudication symptoms. Motor strength of the lower extremities is 4 out of 5. There is no gross sensory deficit. Assessment:: Postlaminectomy syndrome lumbar spine with lumbar radiculopathy symptoms and lumbar spinal stenosis with neurogenic claudication symptoms Plan:: We will refer her to Dr. Garces and Dr. Morales for neurosurgical evaluation. She is continuing with [facility] home refill and continues with her intrathecal hydromorphone pain pump at 0.17 mg/day. [facility] History Medical History: Reports:: Gastroesophageal Reflux Disease(GERD), Hiatal Hernia, Hyperlipidemia, Hypertension Denies:: Cancer, Diabetes Mellitus Type 1, Diabetes Mellitus Type 2, MRSA, Seizures *Have you ever received a pneumonia vaccine?: No *Have you received a flu vaccine this season?: No Other Medical History: Reports: Arthritis. Denies: Blood Transfusion Reaction Laterality Cases: Right: Carpal Tunnel Release Other Surgeries: Yes: Appendectomy, Cholecystectomy, Colonoscopy, , EGD, Hysterectomy-Total, Other Amputation: No Fractures: No - *Social History Smoking Status: Never smoker Alcohol Intake: never *Occupational Status:: other Housing: house Household Members: other *Travel in the last 8 weeks: Inside the [facility] Family Hx:: Asthma, Cancer, Hypertension, Stroke
== END ==
PROVIDERS: Visit Provider Anesthesiology
DX: M96.1 Postlaminectomy syndrome, not elsewhere classified (principal); M54.16 Radiculopathy, lumbar region; M48.062 Spinal stenosis, lumbar region with neurogenic claudication
CPT/HCPCS: 99212; G0463

== ENCOUNTER → 2020-11-29 13:04 | Outpatient (CLI) | payer MEDICARE, BC, SELFPAY ==
--- NOTE | 2020-11-29 13:06 | MM_ITS ---
PROCEDURE: MM DIG SCREENING MAMM BI W/CAD Digital Breast Tomosynthesis Included CLINICAL INDICATION: SCREENING History of breast cancer. There has been previous bilateral breast reduction surgery. COMPARISON: MG [facility] MM Dig screening mamm BI w/CAD from 09/03/2017 MG MM DIG SCREENING MAMM BI W/CAD from 10/20/2018 MG MM DIG SCREENING MAMM BI W/CAD from 11/26/2019 TECHNIQUE: Standard CC and MLO images and 3D Tomosynthesis was obtained. R2 CAD reviewed. FINDINGS: Moderate diffuse fibroglandular densities are seen throughout both breast and the findings are bilateral symmetrical. There are benign-appearing calcifications left breast. There are no CAD markings. There benign-appearing nodular densities axillary tail left breast likely low-lying nodes. There is no suspicious lesion and no suspicious microcalcifications. There is very little if any post surgical scarring in either breast. IMPRESSION: Fibrofatty parenchyma with no suspicious lesions seen BI-RAD Category: 2 Benign Finding(s) FOLLOW-UP: 1YR 1 Year Follow-up (A letter has been sent to the patient regarding results of the study.) Dictated by: Dr. Oni Lawrence MD 12/15/2020 09:03 Dr. Oni Lawrence MD in [place] 12/15/2020 09:03
== END ==
PROVIDERS: PCP Family Medicine; Visit Provider Family Medicine
DX: Z12.31 Encounter for screening mammogram for malignant neoplasm of breast (principal)
CPT/HCPCS: 77063; 77067

== ENCOUNTER → 2021-12-01 15:25 | Outpatient (CLI) | payer MEDICARE, BC, SELFPAY ==
--- NOTE | 2021-12-01 15:42 | MM_ITS ---
PROCEDURE INFORMATION: Exam: MG Bilateral Screening 3D Mammography Exam date and time: 12/01/2021 3:36 PM Age: 81 years old Clinical indication: Screening examination. No family history of breast cancer. TECHNIQUE: Imaging protocol: Bilateral Screening tomosynthesis and 2D mammography including computer-aided detection (CAD) when performed. COMPARISON: 1. MG MM DIG SCREENING MAMM BI W/CAD 11/29/2020 1:21 PM 2. MG MM DIG SCREENING MAMM BI W/CAD 11/26/2019 10:06 AM 3. MG MM DIG SCREENING MAMM BI W/CAD 10/20/2018 8:37 AM 4. MG [facility] MM Dig screening mamm BI w/CAD 09/03/2017 11:26 AM FINDINGS: MAMMOGRAPHY: Breast composition: There are scattered areas of fibroglandular density. Mass: None. Architectural distortion: Stable mild diffuse architectural distortion with history of reduction mammoplasty. Calcifications: No suspicious calcifications. Asymmetric density: None. Skin thickening: None. Axillary adenopathy: None. IMPRESSION: No mammographic evidence of malignancy. Annual screening is recommended unless otherwise clinically indicated. ASSESSMENT: BI-RADS Category 2: Benign
== END ==
PROVIDERS: PCP Family Medicine; Visit Provider Family Medicine
DX: Z12.31 Encounter for screening mammogram for malignant neoplasm of breast (principal)
CPT/HCPCS: 77063; 77067

== ENCOUNTER → 2021-12-29 16:45 | Outpatient (CLI) | payer MEDICARE, BC, SELFPAY ==
[2021-12-29 18:38] LABS: Basophils # 0.1 K/mm3 (0-0.2); Basophils % 1.4 % (0.1-2.0); Eosinophils # 0.1 K/mm3 (0.0-0.4); Eosinophils % 2.1 % (0.1-12.0); Hematocrit 32.6 % (37.0-47.0); Hemoglobin 10.9 g/dL (12.2-16.2); Lymphocytes # 0.5 K/mm3 (0.7-4.5); Lymphocytes % 11.4 % (10-50); Mean Corpuscular HGB Conc 33.3 g/dL (31.8-35.4); Mean Corpuscular Hemoglobin 28.8 pg (27.0-31.2); Mean Corpuscular Volume 86.5 fl (81-99); Mean Platelet Volume 8.7 fl (7.4-10.4); Monocytes # 0.3 K/mm3 (0.1-1.0); Monocytes % 7.2 % (1.7-9.3); Neutrophils # 3.4 K/mm3 (1.8-7.8); Neutrophils % 77.9 % (37.0-80.0); Platelet Count 429 K/mm3 (142-424); Red Blood Count 3.77 M/mm3 (4.20-5.40); Red Cell Distribution Width 14.4 % (11.5-17.5); White Blood Count 4.4 K/mm3 (4.8-10.8)
[2021-12-29 18:55] LABS: Alanine Aminotransferase 24 U/L (12-78); Albumin Level 3.8 g/dl (3.5-5.0); Albumin/Globulin Ratio 1.5 (1.1-1.8); Alkaline Phosphatase 80 U/L (38-126); Anion Gap 20.5 mEq/L (5-15); Aspartate Amino Transferase 33 U/L (14-36); Bilirubin,Total 0.2 mg/dl (0.2-1.3); Blood Urea Nitrogen 21 mg/dl (7-17); Calcium 8.9 mg/dl (8.4-10.2); Carbon Dioxide 26 mmol/L (22.0-30.0); Chloride 94 mmol/L (98-107); Estimated Glomerular Filt Rate 81 ml/min (>60); GFR (African American) 98 ML/MIN (>60); Globulin 2.6 g/dL (1.3-3.2); Glucose 102 mg/dl (74-100); Potassium 4.5 mmoL/L (3.5-5.1); Sodium 136 mmol/L (136-145); Total Protein,Serum 6.4 g/dl (6.3-8.2)
== END ==
PROVIDERS: PCP Family Medicine; Visit Provider Family Medicine
DX: E11.9 Type 2 diabetes mellitus without complications (principal); Z79.84 Long term (current) use of oral hypoglycemic drugs
CPT/HCPCS: 80053; 85025

== ENCOUNTER → 2022-09-20 10:37 | Outpatient (CLI) | payer MEDICARE, BC, SELFPAY ==
--- NOTE | 2022-09-20 10:44 | MR_ITS ---
FINAL REPORT CLINICAL HISTORY: CERVICAL MYELOPATHY. RIGHT ARM PAIN, NUMBNESS AND TINGLING COMPARISON: None FINDINGS: Multiplanar MR imaging of the cervical spine was performed without contrast. On the sagittal T2-weighted images, disc degeneration and endplate changes are seen at multiple levels. There is no evidence of fracture. The vertebral alignment is normal. The cervical spinal cord has an unremarkable appearance without evidence of mass, edema or syrinx. No significant canal stenosis is identified. The cervicomedullary junction is normal. C2-3: An annular bulge is present with a small right paracentral protrusion. No significant canal or neuroforaminal narrowing is seen. C3-4: An annular bulge is present. A small central disc protrusion is present as well as uncovertebral osteophytes. There is mild right and severe left neural foraminal narrowing. C4-5: Disc osteophyte complex is present. There is moderate bilateral neural foraminal narrowing. C5-6: Disc osteophyte complex is present. There is moderate bilateral neural foraminal narrowing. C6-7: Disc osteophyte complex is present along with a small right paracentral disc protrusion that mildly indents the anterior aspect of the thecal sac. There is mild AP canal diameter stenosis of 9 mm, and moderate bilateral neural foraminal narrowing. C7-T1: An annular bulge is present. There is mild bilateral neural foraminal narrowing. IMPRESSION: Multilevel cervical disc disease as described above, with multilevel disc protrusions and multilevel neural foraminal narrowing. Reviewed, Interpreted and Dictated by Momo Mata III, MD Transcribed by Judith Light Authenticated and [facility]
== END ==
PROVIDERS: PCP Family Medicine; Visit Provider Orthopaedic Surgery Orthopaedic Surgery of the Spine
DX: G95.9 Disease of spinal cord, unspecified (principal); M54.12 Radiculopathy, cervical region
CPT/HCPCS: 72141; 76376

== ENCOUNTER → 2022-11-26 13:52 | Outpatient (CLI) | payer MEDICARE, BC, SELFPAY ==
--- NOTE | 2022-11-26 13:56 | US_ITS ---
PROCEDURE INFORMATION: Exam: US Right Breast, Complete US Left Breast, Complete Exam date and time: 11/26/2022 2:21 PM Age: 82 years old Clinical indication: Breast pain; Bilateral TECHNIQUE: Imaging protocol: Complete ultrasound of all four quadrants of the right breast and the retroareolar regions, including ultrasound of the axilla when performed. Complete ultrasound of all four quadrants of the left breast and the retroareolar regions, including ultrasound of the axilla when performed. COMPARISON: MG MM DIG SCREENING MAMM BI W/CAD 12/01/2021 3:36 PM FINDINGS: Breast: Sonographic images of both breasts including the retroareolar regions, all 4 quadrants and the axilla do not demonstrate any solid or cystic masses. No architectural distortion or acoustical shadowing. No skin thickening or axillary adenopathy. IMPRESSION: No sonographic evidence of malignancy. Annual mammographic screening is recommended at the current time unless otherwise clinically indicated. ASSESSMENT: BI-RADS Category 1: Negative
== END ==
PROVIDERS: PCP Family Medicine; Visit Provider Physician Assistant
DX: N64.4 Mastodynia (principal)
CPT/HCPCS: 76641

== ENCOUNTER → 2022-12-21 08:19 | Outpatient (CLI) | payer MEDICARE, BC, SELFPAY ==
--- NOTE | 2022-12-21 08:19 | FL_ITS ---
FINAL REPORT CLINICAL HISTORY: . dyspagia 1:23 fluoro time 846.06 DAP FINDINGS: ESOPHAGRAM HISTORY: Dysphagia. PROCEDURE: The patient ingested barium. Effervescent crystals were also administered. Spot and overhead films were obtained. 14 radiographs were obtained. Fluoro time: 1 minute 23 seconds DAP: 846.06 uGy.m2 FINDINGS: The esophagus is normal. There is a small hiatal hernia. There is no gastroesophageal reflux. Peristalsis is normal. A 13 mm barium passes through the esophagus and into the stomach without delay. IMPRESSION: Small sliding-type hiatal hernia. Films reviewed , interpreted and dictated by Dr. Mata. Transcribed by Griffin Gotti PA-C. Reviewed, Interpreted and Dictated by Momo Mata III, MD Transcribed by NEHEMIAH Gutierrez Authenticated and [facility]
--- NOTE | 2022-12-21 08:19 | CT_ITS ---
FINAL REPORT TECHNIQUE: Thin section axial CT images with coronal and sagittal reformats were performed through the neck. This study was performed with techniques to keep radiation doses as low as reasonably achievable (ALARA). Individualized dose reduction techniques using automated exposure control or adjustment of mA and/or kV according to the patient''s size were employed. CLINICAL HISTORY: Dysphagia FINDINGS: No adenopathy or mass lesion is present . Salivary glands are normal. Larynx is unremarkable. Thyroid gland is unremarkable. There is total opacification of the right sphenoid sinus and mucosal thickening of the left sphenoid sinus. Mild carotid artery calcifications are noted. IMPRESSION: Total opacification of the right sphenoid sinus. Mild carotid artery calcifications. Reviewed, Interpreted and Dictated by Momo Mata III, MD Transcribed by Irasema Ruggiero Authenticated and [facility]
== END ==
PROVIDERS: PCP Family Medicine; Visit Provider Nurse Practitioner
DX: R13.10 Dysphagia, unspecified (principal)
CPT/HCPCS: 70490; 74220

== ENCOUNTER → 2022-12-26 14:34 | Outpatient (CLI) | payer MEDICARE, BC, SELFPAY ==
--- NOTE | 2022-12-26 14:38 | MM_ITS ---
PROCEDURE INFORMATION: Exam: MG Bilateral Screening 3D Mammography Exam date and time: 12/26/2022 2:35 PM Age: 82 years old Clinical indication: Screening examination TECHNIQUE: Imaging protocol: Bilateral Screening tomosynthesis and 2D mammography including computer-aided detection (CAD) when performed. COMPARISON: 1. MG MM DIG SCREENING MAMM BI W/CAD 12/01/2021 3:36 PM 2. MG MM DIG SCREENING MAMM BI W/CAD 11/29/2020 1:21 PM FINDINGS: MAMMOGRAPHY: Breast composition: There are scattered areas of fibroglandular density. Mass: None. Architectural distortion: None. Calcifications: No suspicious calcifications. Asymmetric density: None. Skin thickening: None. Axillary adenopathy: None. IMPRESSION: No mammographic evidence of malignancy. Annual screening is recommended unless otherwise clinically indicated. ASSESSMENT: BI-RADS Category 1: Negative
== END ==
PROVIDERS: PCP Family Medicine; Visit Provider Family Medicine
DX: Z12.31 Encounter for screening mammogram for malignant neoplasm of breast (principal)
CPT/HCPCS: 77063; 77067

== ENCOUNTER → 2023-01-02 09:26 | Outpatient (CLI) | payer MEDICARE, BC, SELFPAY ==
--- NOTE | 2023-01-02 09:29 | XR_ITS ---
FINAL REPORT CLINICAL HISTORY: POST MENOPAUSAL, pt. has metal in spine and rt hip I did both forearms FINDINGS: Using right forearm, the bone mineral density of 1/3 is 0.537 g/cm2, corresponding to T-score of -2.6, consistent with osteoporosis. Using the left forearm, the bone mineral density of 1/3 is 0.513 g/cm2, corresponding to a T-score of -3.0, consistent with osteoporosis. Using the left hip, the bone mineral density of the femoral neck is 0.760 g/cm2, corresponding to a T-score of -1.5, consistent with low bone density. FRAX 10 year fracture risk is 2.4% for a hip fracture and 11% for a major osteoporotic fracture. NOTE: T-score: Standard deviation compared with peak bone mass of young adult mean. *Following the recommendations of the International Society of Bone densitometry, classification of hip BMD is based on the lower of two T-scores; total hip or femoral neck. IMPRESSION: Diminished bone mineral density consistent with osteoporosis. Reviewed, Interpreted and Dictated by Momo Mata III, MD Transcribed by Margaret Linares Authenticated and [facility]
== END ==
PROVIDERS: PCP Family Medicine; Visit Provider Physician Assistant
DX: Z78.0 Asymptomatic menopausal state (principal)
CPT/HCPCS: 77080

== ENCOUNTER 2023-08-01 10:24 | Outpatient (CLI) | payer MEDICARE, BC, SELFPAY ==
--- NOTE | 2023-08-01 10:32 | US_ITS ---
FINAL REPORT CLINICAL HISTORY: .REDNESS/DISCOLORATION LOWER EXT NL WAVEFORMS/PULSES R RICO 1.3 L RICO 1.3 R TBI 1.1 L TBI 1.2 COMPARISON: None FINDINGS: ANKLE-BRACHIAL PRESSURE INDICES Pressure indices are as follows: RIGHT LOWER EXTREMITY: Ankle-brachial pressure index: 1.25 Comments: Normal LEFT LOWER EXTREMITY: Ankle-brachial pressure index: 1.26 Comments: Normal CONCLUSION: No evidence of significant obstructive peripheral vascular disease of the lower extremities Reviewed, Interpreted and Dictated by Gato Ryan MD Transcribed by Judith Light Authenticated and . [facility]
== END 2023-08-01 23:59 | disposition home or self-care (01) ==
LOC: RT 10:25
PROVIDERS: PCP Family Medicine; Visit Provider Physician Assistant
DX: L53.9 Erythematous condition, unspecified (principal)
CPT/HCPCS: 93923

== ENCOUNTER 2023-08-15 12:37 | Outpatient (POV) | payer MEDICARE, BC, SELFPAY ==
[2023-08-15 13:46] VITALS: BP 140/64; PULSE 65; RESP 18; O2SAT 96; BMI 35.2
--- NOTE | 2023-08-15 14:39 | P.PCN_ITS ---
Procedure Date: 08/15/23 Time: 14:20 Anesthesiologist:: Jacquie Osborn APRN Complications:: None Pre-procedure Diagnosis:: Degenerative disc disease of cervical and lumbar spine with cervical and lumbar radiculopathy symptoms, chronic pain syndrome Post-procedure Diagnosis:: Same Indications for Procedure:: Patient is a pleasant 83-year-old female who presents today as a patient transfer from the [facility] location. Patient was currently being treated for degenerative disc disease of cervical and lumbar spine with cervical and lumbar radiculopathy symptoms, chronic pain syndrome. Today she rates her pain a 7 out of 10. Patient denies any new trauma or injury. She does state that she is experience a lot more pain in and around her neck that does radiate to her shoulders and her upper extremities with numbness and tingling. Patient does describe this as a chronic pain that has been going on for years and progressively worsened. Patient states the pain does interfere with her ability perform activities of daily living such as cooking and cleaning. Patient does state that she feels like she has a lot of grinding within her neck. Patient is interested in injection therapy. Patient has had multiple injections for her low back pain in the past. Patient does have a intrathecal pump in place with Dilaudid 2 mg/mL with a daily dose of 0.15 mg/day. She denies any side effects from this medication and states this really does help. She does not states she could probably use some additional adjustment. Patient is an [facility] at home refill client. Patient has had this pump in for 6 years as of May. It is also coming to the end of life with this device. It is a flowOnix pump. Patient states that she has been told by her home health nurse that she does need to see about getting this replaced as soon as possible. Patient has had prior back surgery and is fused from her thoracic down to her sacrum. Patient is prescribed pregabalin from an outside provider. Her Bradley has been reviewed and is appropriate. Physical Exam: General: Alert and oriented x3, no acute distress, pleasant and cooperative Lungs: Respirations even and unlabored, symmetrical chest expansion Eyes: PERRL Musculoskeletal: Flexion and extension of cervical [spine] somewhat guarded secondary to pain, [antalgic gait noted] positive Spurling's test Neurological: Speech clear, no gross sensory deficit FINDINGS: Multiplanar MR imaging of the cervical spine was performed without contrast. On the sagittal T2-weighted images, disc degeneration and endplate changes are seen at multiple levels. There is no evidence of fracture. The vertebral alignment is normal. The cervical spinal cord has an unremarkable appearance without evidence of mass, edema or syrinx. No significant canal stenosis is identified. The cervicomedullary junction is normal. C2-3: An annular bulge is present with a small right paracentral protrusion. No significant canal or neuroforaminal narrowing is seen. C3-4: An annular bulge is present. A small central disc protrusion is present as well as uncovertebral osteophytes. There is mild right and severe left neural foraminal narrowing. C4-5: Disc osteophyte complex is present. There is moderate bilateral neural foraminal narrowing. C5-6: Disc osteophyte complex is present. There is moderate bilateral neural foraminal narrowing. C6-7: Disc osteophyte complex is present along with a small right paracentral disc protrusion that mildly indents the anterior aspect of the thecal sac. There is mild AP canal diameter stenosis of 9 mm, and moderate bilateral neural foraminal narrowing. C7-T1: An annular bulge is present. There is mild bilateral neural foraminal narrowing. IMPRESSION: Multilevel cervical disc disease as described above, with multilevel disc protrusions and multilevel neural foraminal narrowing. Reviewed, Interpreted and Dictated by Momo Mata III, MD Transcribed by Judith Light Authenticated and . [facility] Procedure Details:: Informed consent was obtained and the risk and benefits of the procedure were explained to the patient. Patient was taken to the procedure room where noninvasive monitoring was placed including noninvasive blood pressure cuff and pulse oximeter. Patient's pump was interrogated and was reprogrammed to Dilaudid 0.165 milligrams per day. The patient tolerated the procedure well with no complications. Plan and Disposition:: Patient tolerated her intrathecal increase with no complications and was discharged neurologically intact. I did discuss at length with the patient regarding her chronic pain throughout her cervical spine with limited range of motion and a positive Spurling's test that she may benefit from a cervical epidural steroid injection. Risk and benefits were discussed with patient and she would like to proceed forward with this plan of care. Patient is not currently on any blood thinners. I also discussed the risk and benefits of the intrathecal pump replacement as well as the catheter exchange. The current catheter is not compatible with the aScentias system and we will submit to insurance for the intrathecal pump and catheter replacement due to end-of-life. Patient is agreeable to this plan of care. We will also submit for the cervical epidural steroid injection C6-C7 under fluoroscopy. Patient has tried and failed conservative therapy including continued at home exercising and stretching for longer than 12 weeks. Patient has been instructed to contact the clinic with any concerns before the next appointment. Dr. Lockhart has reviewed this note and agrees with this plan of care. This note was dictated using voice recognition software and make contain errors or omissions. -- It Is medically necessary for this patient to continue to have their intrathecal pump refilled at regular intervals. This patient had an intrathecal pain pump implanted after meeting criteria of chronic intractable pain for greater than 3 months and failing conservative treatments. Patient has committed and been compliant to the treatment plan and all planned follow up care. Since implantation of the intrathecal pain pump, the patient has had decreased pain and been more functional. Oral medications have been reduced including intake of oral opioids. Patient continues to do well with intrathecal therapy with decrease in pain symptoms and increase in functional status. Stopping intrathecal medications can lead to life threatening withdrawal, seizures, cardiac arrest, severe pain, and possible . Pumps that are not refilled at regular intervals can be damages and cause and need for replacement. We continually titrate dose and concentration to optimize pain relief and function. We are limited in concentration for certain drugs to safely deliver medications through the pump and stay within the recommendations from the Polyanalges[employer] Consensus Committee Guidelines. Depending on dose and concentration these pumps may need to be refilled sooner than 3 months as we titrate.
== END 2023-08-15 23:59 | disposition home or self-care (01) ==
PROVIDERS: Visit Provider Nurse Practitioner Family
DX: M50.123 Cervical disc disorder at C6-C7 level with radiculopathy (principal); M51.16 Intervertebral disc disorders with radiculopathy, lumbar region; G89.4 Chronic pain syndrome; Z97.8 Presence of other specified devices; Z45.1 Encounter for adjustment and management of infusion pump
CPT/HCPCS: 62368; 99202; 99212; 99213; G0463

== ENCOUNTER 2023-09-03 11:13 | Day surgery (SDC) | payer MEDICARE, BC, SELFPAY ==
[2023-09-03 11:29] VITALS: BP 136/67; PULSE 74; RESP 16; TEMP 36.6; O2SAT 92; BMI 30.9
[2023-09-03] MEDS: methylPREDNISolone ACETATE 80MG/ML VIAL 80 MG (11:39)
--- NOTE | 2023-09-03 11:42 | P.PCN_ITS ---
Procedure Date: 09/03/23 Time: 11:40 Anesthesiologist:: Carl Castaneda CRNA Complications:: None Pre-procedure Diagnosis:: Degenerative disc cervical spine multilevels. Cervical radiculopathy. Post-procedure Diagnosis:: Same. Indications for Procedure:: Patient is a pleasant 83-year-old female comes our clinic today for cervical epidural steroid injection. Patient describes posterior neck pain as constant, dull, aching. Bilateral arm radicular symptoms are constant, dull, aching. She rates her pain today 7/10. Procedure Details:: Procedure:Cervical epidural steroid injection Informed consent was obtained and the risks and benefits of the procedure were explained to the patient. The patient was taken to the procedure room and noninvasive monitors placed, including noninvasive blood pressure cuff and pulse oximeter. The neck was prepped using Chloraprep as a cleansing solution. The C6- C7 interspace was viewed using fluroscopy. The skin and subcutaneous tissues were anesthetized using lidocaine 1.5% and a 25-gauge needle. After this an 18- gauge Touhy epidural needle was placed into the C6-C7 interspace under fluroscopy guidance and advanced using loss of resistance to air until the epidural space was encountered. After confirmation of needle placement in the epidural space using contrast dye, a solution containing normal saline, 2 mL and Depo-Medrol 80 mg was incrementally injected into the cervical epidural space.~ The patient tolerated the procedure well with no complications. The patient was observed in the Pain Clinic and then discharged home neurologically intact. Plan and Disposition:: Patient was discharged without incident.
[2023-09-03 11:50] VITALS: BP 113/69; PULSE 51; RESP 18; O2SAT 98
== END 2023-09-03 11:51 | disposition home or self-care (01) ==
PROVIDERS: PCP Family Medicine; Visit Provider Nurse Anesthetist, Certified Registered
DX: M54.12 Radiculopathy, cervical region (principal)
CPT/HCPCS: 62321; J1010

== ENCOUNTER 2023-09-30 10:24 | Outpatient (POV) | payer MEDICARE, BC, SELFPAY ==
[2023-09-30 10:58] VITALS: BP 133/73; PULSE 67; RESP 16; O2SAT 94; BMI 35.2
--- NOTE | 2023-09-30 11:49 | P.PCN_ITS ---
Procedure Date: 09/30/23 Time: 11:30 Anesthesiologist:: Jacquie Osborn APRN Complications:: None Pre-procedure Diagnosis:: Degenerative disc disease of cervical and lumbar spine with cervical and lumbar radiculopathy symptoms, sacroiliitis Post-procedure Diagnosis:: Same Indications for Procedure:: Patient is a pleasant 83-year-old female who presents today for follow-up. Today she rates her pain a 5 out of 10. Patient did just have a cervical epidural steroid injection C6 or C7 on 09/03/2023. She did get 50% relief following this injection however she feels like it is already starting to wear off. Patient's complaint today however is more along her low back and hips. She describes this as an aching, throbbing sensation with some numbness that goes into her buttocks area. Patient does state the pain interferes with her ability perform activities of daily living such as cooking and cleaning. Patient does also have a intrathecal pump in place with Dilaudid 2 mg/mL with a daily dose of 0.165 mg/day. 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 Patient does state that she would like to proceed forward with this. Her Bradley has been reviewed and is appropriate. Physical Exam: General: Alert and oriented x3, no acute distress, pleasant and cooperative Lungs: Respirations even and unlabored, symmetrical chest expansion Eyes: PERRL Musculoskeletal: Flexion and extension of lumbar [spine] somewhat guarded secondary to pain, [antalgic gait noted] point tenderness along bilateral SIs with positive bilateral Dexter's, Margy's, Gaenslen's, compression and distraction exam Neurological: Speech clear, no gross sensory deficit Procedure Details:: Informed consent was obtained and the risk and benefits of the procedure were explained to the patient. Patient was taken to the procedure room where noninvasive monitoring was placed including noninvasive blood pressure cuff and pulse oximeter. Patient's pump was interrogated and was reprogrammed to Di Neboudid 0.1897. The patient tolerated the procedure well with no complications. Plan and Disposition:: Patient tolerated her intrathecal increase with no complications and was discharged neurologically intact. I did discuss with patient that she had extreme point tenderness along her right SI with point tenderness on the left and a positive bilateral Dexter's, Margy's, Gaenslen's, compression and distraction exam. I believe she would benefit from bilateral SI injections. Risk and benefits were discussed with the patient and she would like to proceed forward with this plan of care. Patient has tried and failed conservative therapy including continued at home stretching exercises greater than 6 weeks. I have also discussed over the risk and benefits of her intrathecal pain pump replacement with catheter replacement due to it not being compatible with the [employer] device. She does want to proceed forward with this plan of care. We will submit to insurance for bilateral SI injections under fluoroscopy as well as intrathecal pump and catheter replacement due to end-of-life. ICD 10 codes 83150, 04348 for pump and catheter replacement Patient has been instructed to contact the clinic with any concerns before the next appointment. Dr. Lockhart has reviewed this note and agrees with this plan of care. This note was dictated using voice recognition software and make contain errors or omissions. -- It Is medically necessary for this patient to continue to have their intrathecal pump refilled at regular intervals. This patient had an intrathecal pain pump implanted after meeting criteria of chronic intractable pain for greater than 3 months and failing conservative treatments. Patient has committed and been compliant to the treatment plan and all planned follow up care. Since implantation of the intrathecal pain pump, the patient has had decreased pain and been more functional. Oral medications have been reduced including intake of oral opioids. Patient continues to do well with intrathecal therapy with decrease in pain symptoms and increase in functional status. Stopping intrathecal medications can lead to life threatening withdrawal, seizures, cardiac arrest, severe pain, and possible . Pumps that are not refilled at regular intervals can be damages and cause and need for replacement. We continually titrate dose and concentration to optimize pain relief and function. We are limited in concentration for certain drugs to safely deliver medications through the pump and stay within the recommendations from the Polyanalgesic Consensus Committee Guidelines. Depending on dose and concentration these pumps may need to be refilled sooner than 3 months as we titrate.
== END 2023-09-30 23:59 | disposition home or self-care (01) ==
PROVIDERS: PCP Family Medicine; Visit Provider Nurse Practitioner Family
DX: G89.29 Other chronic pain (principal); M54.16 Radiculopathy, lumbar region
CPT/HCPCS: 62368; 99213; G0463

== ENCOUNTER → 2023-10-15 12:38 | Day surgery (SDC) | payer MEDICARE, BC, SELFPAY ==
[2023-10-15 13:13] VITALS: BP 140/74; PULSE 67; RESP 18; O2SAT 93
[2023-10-15 13:14] VITALS: BP 133/83; PULSE 74; RESP 16; TEMP 36.4; O2SAT 93; BMI 35.2
--- NOTE | 2023-10-15 13:19 | P.PCN_ITS ---
Procedure Date: 10/15/23 Time: 13:15 Anesthesiologist:: Carl Castaneda CRNA Complications:: None Pre-procedure Diagnosis:: Bilateral sacroiliitis Post-procedure Diagnosis:: Same. Indications for Procedure:: Patient is a pleasant 83-year-old female who comes to clinic today for bilateral sacroiliac joint injections of cortisone. Patient describes low lumbar back pain off midline bilaterally is constant, dull, aching. Patient reports having difficulty transitioning from sitting to standing due to bilateral posterior hip pain. She rates her pain 7/10. Procedure Details:: Procedure: Bilateral sacroiliac joint injections under fluoroscopy Informed consent was obtained and the risks and benefits of the procedure were explained to the patient.~ The patient was taken to the procedure room and noninvasive monitors were placed including a noninvasive blood pressure cuff and pulse oximeter.~ The patient was placed prone on the procedure table. Both hips were cleansed using Betadine as a cleansing solution. C-arm fluoroscopy was used to view the right sacroiliac joint.~ The skin and subcutaneous tissues were anesthetized using lidocaine 1.5% and a 25-gauge needle.~ After this, a 22-gauge spinal needle was inserted under fluoroscopic guidance into the inferior aspect of the right sacroiliac joint.~ Omnipaque dye was injected and good spread was seen throughout the joint.~ After this, approximately 5 mL of bupivacaine, 0.25% and Depo-Medrol, 40 mg was incrementally injected into the right sacroiliac joint. We then moved to the left sacroiliac joint.~ The skin and subcutaneous tissues were anesthetized using lidocaine 1.5% and a 25-gauge needle.~ After this, a 22- gauge spinal needle was inserted under fluoroscopic guidance into the inferior aspect of the left sacroiliac joint.~ Omnipaque dye was injected and good spread was seen throughout the joint. After this, approximately 5 mL of bupivacaine, 0.25% and Depo-Medrol, 40 mg was incrementally injected into the left sacroiliac joint.~ The patient tolerated the procedure well with no complications. The patient was observed in the Pain Clinic and then was discharged home neurologically intact. Plan and Disposition:: Patient was discharged without incident.
[2023-10-15] MEDS: BUPIVACAINE 0.25% 10ML INJ 25 MG IJ (13:21)
[2023-10-15] MEDS: LIDOCAINE 1% 5ML PF VIAL 5 ML (13:21)
[2023-10-15 13:25] VITALS: BP 144/68; PULSE 68; RESP 18; O2SAT 95
== END | disposition home or self-care (01) ==
PROVIDERS: PCP Family Medicine; Visit Provider Nurse Anesthetist, Certified Registered
DX: M46.1 Sacroiliitis, not elsewhere classified (principal)
CPT/HCPCS: 27096; G0260; J1010

== ENCOUNTER 2023-10-22 14:21 | Outpatient (POV) | payer MEDICARE, BC, SELFPAY | END 2023-10-22 23:59 | disposition home or self-care (01) | LOC: SC 14:21 | PROVIDERS: PCP Family Medicine; Visit Provider Dermatology | DX: Z00.00 Encounter for general adult medical examination without abnormal findings (principal) ==

== ENCOUNTER 2023-11-04 14:30 | Outpatient (POV) | payer MEDICARE, BC, SELFPAY ==
[2023-11-04 14:42] VITALS: BP 141/66; PULSE 71; RESP 16; O2SAT 94; BMI 34.3
--- NOTE | 2023-11-04 15:55 | EXP.PAIN.PRO ---
Procedure Date: 11/04/23 Time: 15:51 Anesthesiologist:: Jacquie Osborn APRN Complications:: None Pre-procedure Diagnosis:: Degenerative disc disease of lumbar spine with lumbar radiculopathy symptoms Post-procedure Diagnosis:: Same Indications for Procedure:: Patient is a pleasant 83-year-old female who presents today for follow-up of bilateral SI injections on 10/15/2023 along with worsening pain. Today she rates her pain a 6 out of 10. She denies any new trauma or injury. She does state that the SI injections did help more significantly along the left side and that she would rated about 50 to 60% improvement. She does however state that it is back to her baseline and is stating her pain is throughout her low back that does radiate down into primarily her right leg and describes it as a throbbing sensation with And tingling. She does state the pain interferes with her ability perform activities of daily living such as cooking and cleaning. Patient is currently managed with Dilaudid 2 mg/mL with a daily dose of 0.1897 mg/day and her pump. Patient is still waiting to have her pump replaced however was never given an update if it ever got approved. Her Bradley has been reviewed and is appropriate. Physical Exam: General: Alert and oriented x3, no acute distress, pleasant and cooperative Lungs: Respirations even and unlabored, symmetrical chest expansion Eyes: PERRL Musculoskeletal: Flexion and extension of lumbar [spine] somewhat guarded secondary to pain, [antalgic gait noted] Neurological: Speech clear, no gross sensory deficit Procedure Details:: Informed consent was obtained and the risk and benefits of the procedure were explained to the patient. Patient was taken to the procedure room where noninvasive monitoring was placed including noninvasive blood pressure cuff and pulse oximeter. Patient's pump was interrogated and was reprogrammed to Dilaudid 0.2181 mg/day. The patient tolerated the procedure well with no complications. Plan and Disposition:: Patient tolerated her intrathecal increase with no complications and was discharged neurologically intact. I did discuss with the patient that we will look into and see whether or not if her insurance is still pending for her pump replacement and make sure that she is on her next OR schedule. Due to the patient's worsening pain and her low back that does radiate all the way down her right leg I did discuss with the patient that she may benefit from lumbar epidural steroid injection. Risk and benefits were discussed with patient and she would like to proceed forward with this plan of care. Patient has tried and failed conservative therapy including continued at home stretching exercise for longer than 6 weeks. Patient will be scheduled for an LESI L4-L5 under fluoroscopy. Patient has been instructed to contact the clinic with any concerns before the next appointment. Dr. Lockhart has reviewed this note and agrees with this plan of care. This note was dictated using voice recognition software and make contain errors or omissions. All injections are used with Lidocaine or Bupivacaine and Depo Medrol.
== END 2023-11-04 23:59 | disposition home or self-care (01) ==
PROVIDERS: PCP Family Medicine; Visit Provider Nurse Practitioner Family
DX: M51.36 Other intervertebral disc degeneration, lumbar region (principal)
CPT/HCPCS: 62368; 99212; 99213; G0463

== ENCOUNTER 2023-11-19 12:27 | Outpatient (CLI) | payer MEDICARE, BC, SELFPAY ==
--- NOTE | 2023-11-19 13:04 | ECG_ITS ---
APPROVED REPORT Exam: Resting ECG HR:65 bpm ECG Measurements Heart Rate 65 AXES DC 217 P 39 QRSd 90 QRS 39 QT 413 T 43 QTc 424 Conclusion SINUS RHYTHM WITH FIRST DEGREE AV BLOCK ABNORMAL ECG UNCONFIRMED REPORT Electronically signed by : Cole Johnson MD 11/20/2023 08:25:28
== END 2023-11-19 23:59 | disposition home or self-care (01) ==
LOC: PREOP 12:28
PROVIDERS: PCP Family Medicine; Visit Provider Anesthesiology
DX: M51.16 Intervertebral disc disorders with radiculopathy, lumbar region (principal); M96.1 Postlaminectomy syndrome, not elsewhere classified
CPT/HCPCS: 62323; 93005; J1010

== ENCOUNTER 2023-11-22 11:09 | Day surgery (SDC) | payer MEDICARE, BC, SELFPAY ==
[2023-11-19 12:50] VITALS: BMI 34.2
[2023-11-19 13:15] LABS: Basophils % 0.9 % (0.1-2.0); Eosinophils # 0.1 K/mm3 (0.0-0.4); Eosinophils % 1.3 % (0.1-12.0); Hematocrit 37.5 % (37.0-47.0); Lymphocytes # 1.2 K/mm3 (0.7-4.5); Lymphocytes % 27.2 % (10-50); Mean Corpuscular Hemoglobin 29.6 pg (27.0-31.2); Mean Corpuscular Volume 92.7 fl (81-99); Mean Platelet Volume 8.7 fl (7.4-10.4); Monocytes # 0.3 K/mm3 (0.1-1.0); Monocytes % 6.9 % (1.7-9.3); Neutrophils # 2.9 K/mm3 (1.8-7.8); Neutrophils % 63.6 % (37.0-80.0); Platelet Count 251 K/mm3 (142-424); Red Blood Count 4.04 M/mm3 (4.20-5.40); Red Cell Distribution Width 14.8 % (11.5-17.5); White Blood Count 4.5 K/mm3 (4.8-10.8)
[2023-11-19 13:19] LABS: Chloride 102 mmol/L (98-107); Sodium 138 mmol/L (136-145)
[2023-11-19 13:22] LABS: Blood Urea Nitrogen 19 mg/dl (7-17); Creatinine Clearance Estimated 55 mL/min (50-200); Estimated Glomerular Filt Rate 96 ml/min (>60); GFR (African American) 116 ML/MIN (>60)
[2023-11-19 13:23] LABS: Calcium 8.9 mg/dl (8.4-10.2); Carbon Dioxide 29 mmol/L (22.0-30.0); Glucose 107 mg/dl (74-100)
[2023-11-22 11:29] VITALS: BP 134/77; PULSE 65; RESP 18; TEMP 36.5; O2SAT 95
[2023-11-22 12:02] LABS: POC Glucose,Bedside 105 (70-110)
[2023-11-22] MEDS: VANCOMYCIN/WATER FOR INJ (PEG) 1.5 GM/300 ML PIGGYBACK IV (12:06)
[2023-11-22] MEDS: LACTATED RINGERS 1000ML 1,000 ML 25 ML IV (12:06)
[2023-11-22 12:08] LABS: Basophils % 0.8 % (0.1-2.0); Eosinophils # 0.1 K/mm3 (0.0-0.4); Eosinophils % 2.5 % (0.1-12.0); Hematocrit 36.5 % (37.0-47.0); Hemoglobin 11.7 g/dL (12.2-16.2); Lymphocytes # 1.5 K/mm3 (0.7-4.5); Lymphocytes % 26.4 % (10-50); Mean Corpuscular Hemoglobin 29.1 pg (27.0-31.2); Mean Corpuscular Volume 90.9 fl (81-99); Mean Platelet Volume 8.8 fl (7.4-10.4); Monocytes # 0.4 K/mm3 (0.1-1.0); Monocytes % 6.9 % (1.7-9.3); Neutrophils # 3.6 K/mm3 (1.8-7.8); Neutrophils % 63.5 % (37.0-80.0); Platelet Count 262 K/mm3 (142-424); Red Blood Count 4.02 M/mm3 (4.20-5.40); Red Cell Distribution Width 14.9 % (11.5-17.5); White Blood Count 5.6 K/mm3 (4.8-10.8)
--- NOTE | 2023-11-22 12:29 | P.PNANES_ITS ---
[facility] Disclaimer: The information contained in this section may have been updated after the patient was seen, as this information can be updated by other users. Medical History History of ganglion cyst Presence of intrathecal pump GERD (gastroesophageal reflux disease) Diabetes HLD (hyperlipidemia) HTN (hypertension) Hiatal hernia Impacted cerumen of right ear Dysphagia Otalgia, right ear Tongue pain Surgical History History of ankle surgery History of removal of retained hardware History of lumbar surgery History of shoulder surgery History of hip replacement History of bilateral breast reduction surgery History of knee replacement History of History of cholecystectomy History of tubal ligation History of hysterectomy Hx of appendectomy Family History Other Family history of cancer Family history of cirrhosis of liver Family history of heart disease Family history of polio Family history of thyroid disease Unknown family medical history Social History (Updated 11/22/23 @ 11:37 by Kell Sen RN) Smoking Status: Never smoker second hand exposure: No alcohol intake: never substance use type: denies use current occupational status: retired and disabled Travel in the last 8 weeks: None household members: other housing: house current occupational exposures/hazards: No caffeine: Yes [facility] Anesthesia Checklist Patient Identification Patient Identification: Arm Band, Family and Verbal (Name & ) Structural Data Admitted From: Home Planned Operative Procedure/s: Intrathecal pain pump Replacement Verified Documents: Surgical Consent and History and Physical NPO Status Verified Time NPO: 07:00 (Water w/meds) Chart Verification Results Verified: CBC, BMP and ECG Additional verifications Fingerstick Blood Glucose: 105 Patient : No Anesthesia Reactions: No (NAUSEA, ITCHING) Hx Blood Transfusions: Yes Blood Transfusion Reaction: No Cardiovascular Assessment Heart Sounds: S1 & S2 Pulse Rhythm: Irregular Airway Assessment Mallampati Score:: Class II C-Spine Mobility Assessed: Yes (Limited extension) TMJ Mobility Assessed: Yes Dentition: Poor Dentition (Carried. Nothing loose per pt.) Neurological Assessment Level of Consciousness: Awake, Alert, Appropriate and Follows Commands Hx Seizures: No Numbness or tingling in extremities: Yes (CAESAR LE) Anesthesia Plan Anesthesia Risk discussed: Yes Anesthesia Plan: Verified ASA Class: III Anesthesia Type: MAC
[2023-11-22] MEDS: GENTAMICIN 80 MG/2 ML VIAL (12:56)
[2023-11-22] MEDS: SODIUM CHLORIDE 0.9% 20ML VIAL 40 ML IV (12:56)
[2023-11-22] MEDS: LIDOCAINE 1% W/EPI 1:100,000 20ML VIAL 40 ML (12:56)
[2023-11-22 13:37] VITALS: BP 145/88; PULSE 75; RESP 16; TEMP 36.4; O2SAT 96
[2023-11-22 13:47] VITALS: BP 169/95; PULSE 70; RESP 16; O2SAT 95
[2023-11-22 13:57] VITALS: BP 159/76; PULSE 68; RESP 16; O2SAT 94
[2023-11-22 14:07] VITALS: BP 168/87; PULSE 69; RESP 20; O2SAT 97
--- NOTE | 2023-11-22 15:24 | EXP.OP.NOTE ---
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 She has a nonfunctioning Flwonix pain pump system in place. We are replacing her pain pump system today. Will place a new tunneled intrathecal catheter and replaced her pain pump generator today. She is on intrathecal Dilaudid 2 mg/mL we will continue at 0.165 mg/day. Operative findings:: None Operative note:: Informed consent was obtained and the risk and benefits of the procedure were explained to the patient. The patient was taken the operating room placed prone on the procedure table. She was prepped and draped in sterile fashion. C-arm fluoroscopy was used to view the pain pump generator. The skin and subcutaneous tissues overlying the pain pump generator were anesthetized using lidocaine. I made incision dissected out the pain pump generator. I disconnected the catheter. I tied it off with 0 silk ties x 3. C-arm fluoroscopy was then used to view the lumbar spine. The skin and subcutaneous tissues adjacent to the L4-L5 interspace were anesthetized using lidocaine. I made incision dissected down to the lumbar paraspinous fascia. A 17-gauge spinal needle was inserted and advanced into the L4-5 interspace until clear CSF was obtained. After this intrathecal catheter was inserted and advanced very easily to the T8 vertebral body. The catheter was found to be in good position it was posterior and midline. Patient does have hardware all the way up to the T10 vertebral body. The stylet of the catheter and the needle were withdrawn. The catheter was secured to the fascia with an anchor device and 2-0 Prolene. I filled the pump with 20 mL of intrathecal Dilaudid 2 mg/mL. I tunneled the catheter from the back to the pump pocket and attached catheter to the pump. We were able to freely withdraw clear CSF through the sideport. The pump was then placed in the pocket with an antibiotic pouch. Both incisions were closed with 2-0 Vicryl followed by 4-0 nylon and bernarda. Patient tolerated the procedure well with no complications. Pump was interrogated and started at 0.165 mg/day with PTM boluses of 0.0165 mg up to 4 times a day with a 6-hour lockout. Patient was discharged home neurologic intact with good relief of pain symptoms. Condition: stable Disposition: PACU Complications:: None
== END 2023-11-22 14:17 | disposition home or self-care (01) ==
PROVIDERS: Nurse Anesthetist, Certified Registered; PCP Family Medicine; Visit Provider Anesthesiology
PROC: (CPT 62350; principal; 2023-11-22 12:30)
DX: M51.16 Intervertebral disc disorders with radiculopathy, lumbar region (principal); M96.1 Postlaminectomy syndrome, not elsewhere classified; M50.90 Cervical disc disorder, unspecified, unspecified cervical region; T85.112A Breakdown (mechanical) of implanted electronic neurostimulator of spinal cord electrode (lead), initial encounter; Y83.1 Surgical operation with implant of artificial internal device as the cause of abnormal reaction of the patient, or of later complication, without mention of misadventure at the time of the procedure
CPT/HCPCS: 62350; 62362; 80048; 82962; 83036; 85025; 96374; C1755; C1772; J1580; J3010; J7120; S0028

== ENCOUNTER 2023-11-28 14:03 | Outpatient (POV) | payer MEDICARE, BC, SELFPAY ==
[2023-11-28 14:16] VITALS: BP 115/67; PULSE 71; RESP 16; O2SAT 95; BMI 35.2
--- NOTE | 2023-11-28 14:30 | EXP.PAIN.PRO ---
Procedure Date: 11/28/23 Time: 14:30 Anesthesiologist:: Jacquie Osborn APRN Complications:: None Pre-procedure Diagnosis:: Degenerative disc disease of lumbar spine with lumbar radiculopathy symptoms Post-procedure Diagnosis:: Same Indications for Procedure:: Patient is a pleasant 83-year-old female who presents today for follow-up of intrathecal pain pump catheter and generator replacement on 11/22/2023. Today she rates her pain a 2 out of 10. She denies any new trauma or injury. She states overall she has done well following this procedure. Patient does state that today has not been a bad day however she has had a little bit more pain from time to time and does state that she would like to increase her pump a little bit. Patient does also state that she has little bit more trouble with the abdominal binder because she does not have as good of feeling in her hands and fingers. She is asking if there is any larger size of the abdominal binder that would be more beneficial.. Patient does also state 1 day earlier this week she did go to the bathroom and went and sat down and had significant bleeding however she was not sure where it is coming from. She states that her daughter is an RN and she ended up coming over and looking at it and told her everything looked good however there was 1 area that had clotted off. Patient is currently managed with Dilaudid 2 mg/mL with 0.165 mg/day. Patient was decreased a little bit from the pump change amount. She denies any side effects from this medication. Patient is prescribed 1 from her PCP. Her Bradley has been reviewed and is appropriate. Physical Exam: General: Alert and oriented x3, no acute distress, pleasant and cooperative Lungs: Respirations even and unlabored, symmetrical chest expansion Eyes: PERRL Musculoskeletal: Flexion and extension of lumbar [spine] somewhat guarded secondary to pain, [antalgic gait noted] Neurological: Speech clear, no gross sensory deficit Skin: Incision sites are clean, dry, well-approximated with minimal erythema noted she does have a small clot noted at the last staple/suture of the midline incision Procedure Details:: Informed consent was obtained and the risk and benefits of the procedure were explained to the patient. Patient was taken to the procedure room where noninvasive monitoring was placed including noninvasive blood pressure cuff and pulse oximeter. Patient's pump was interrogated and was reprogrammed to Dilaudid 0.1815 mg/day. The patient tolerated the procedure well with no complications. Plan and Disposition:: Patient tolerated her intrathecal increase and reprogram with no complications. I did discuss with the patient that everything with her incisions look great and that there is a small clot noted at the last suture and staple area of the midline incision. I have counseled her that it will come off on its own over time and not to pick at it. Patient acknowledges understanding and agrees with plan of care. We will get the patient a larger abdominal binder and she was counseled that she can take breaks with this. Patient does state that she finds this very supportive and does like wearing it. Patient was counseled to continue her full postop restrictions the full 6 weeks including no submerging in water until her incisions are fully healed, minimal bending lifting and twisting and to continue to use her abdominal binder from time to time to prevent seroma formation. Patient will return to clinic in 2 weeks for reevaluation of symptoms and suture and staple removal. We will see the patient back in the clinic at the next intrathecal refill. Patient has been instructed to contact the clinic with any concerns before the next appointment. Dr. Lockhart has reviewed this note and agrees with this plan of care. This note was dictated using voice recognition software and make contain errors or omissions. -- It Is medically necessary for this patient to continue to have their intrathecal pump refilled at regular intervals. This patient had an intrathecal pain pump implanted after meeting criteria of chronic intractable pain for greater than 3 months and failing conservative treatments. Patient has committed and been compliant to the treatment plan and all planned follow up care. Since implantation of the intrathecal pain pump, the patient has had decreased pain and been more functional. Oral medications have been reduced including intake of oral opioids. Patient continues to do well with intrathecal therapy with decrease in pain symptoms and increase in functional status. Stopping intrathecal medications can lead to life threatening withdrawal, seizures, cardiac arrest, severe pain, and possible . Pumps that are not refilled at regular intervals can be damages and cause and need for replacement. We continually titrate dose and concentration to optimize pain relief and function. We are limited in concentration for certain drugs to safely deliver medications through the pump and stay within the recommendations from the Polyanalgesic Consensus Committee Guidelines. Depending on dose and concentration these pumps may need to be refilled sooner than 3 months as we titrate.
== END 2023-11-28 23:59 | disposition home or self-care (01) ==
PROVIDERS: PCP Family Medicine; Visit Provider Nurse Practitioner Family
DX: M51.16 Intervertebral disc disorders with radiculopathy, lumbar region (principal)
CPT/HCPCS: 62368; 99212; G0463

== ENCOUNTER 2023-12-04 15:18 | Outpatient (CLI) | payer MEDICARE, BC, SELFPAY ==
--- NOTE | 2023-12-04 15:26 | XR_ITS ---
FINAL REPORT CLINICAL HISTORY: LEFT SHOULDER PAIN COMPARISON: None FINDINGS: Two views show no evidence of an acute, displaced fracture or dislocation of the visualized bony architecture. Moderate degenerative joint disease is present. There is inferior displacement of the humeral head, that may be secondary to pseudosubluxation related to a joint effusion, likely chronic. IMPRESSION: Moderate degenerative change, without acute bony abnormality. The humeral head is inferiorly displaced, which may be secondary to pseudosubluxation related to a joint effusion, likely chronic. Reviewed, Interpreted and Dictated by Etienne Vásquez MD Transcribed by Judith Light Authenticated and [facility]
--- NOTE | 2023-12-04 15:28 | XR_ITS ---
FINAL REPORT CLINICAL HISTORY: SOA COMPARISON: None FINDINGS: No acute pulmonary density is evident. There is no evidence of effusion or other pleural disease. The mediastinum has a normal appearance. Postoperative changes are present, with thoracolumbar posterior instrumentation and a right shoulder arthroplasty. The cardiac silhouette is unremarkable. IMPRESSION: Unremarkable two-view chest. Reviewed, Interpreted and Dictated by Etienne Vásquez MD Transcribed by Judith Light Authenticated and [facility]
== END 2023-12-04 23:59 | disposition home or self-care (01) ==
LOC: RAD 15:20
PROVIDERS: PCP Family Medicine; Visit Provider Physician Assistant
DX: R06.02 Shortness of breath (principal); M25.512 Pain in left shoulder
CPT/HCPCS: 71046; 73030

== ENCOUNTER 2023-12-12 13:57 | Outpatient (POV) | payer MEDICARE, BC, SELFPAY ==
[2023-12-12 14:12] VITALS: BP 130/66; PULSE 96; RESP 16; O2SAT 96; BMI 35.2
--- NOTE | 2023-12-12 14:20 | P.PCN_ITS ---
Procedure Date: 12/12/23 Time: 14:20 Anesthesiologist:: Jacquie Osborn APRN Complications:: None Pre-procedure Diagnosis:: Degenerative disc disease of lumbar spine with lumbar radiculopathy symptoms Post-procedure Diagnosis:: Same Indications for Procedure:: Patient is a pleasant 83-year-old female who presents today for suture and staple removal. Today she rates her pain a 4 out of 10. She denies any new trauma or injury. She does state that she ended up having to come to the [facility] on Saturday due to worsening shoulder pain along the left side and that they did end up doing a shoulder injection. Patient denies any other changes. Patient is currently managed with Dilaudid 2 mg/mL with a daily dose of 0.1815 mg/day. She has prescribed pregabalin from her PCP. Her Bradley has been reviewed and is appropriate. Physical Exam: General: Alert and oriented x3, no acute distress, pleasant and cooperative Lungs: Respirations even and unlabored, symmetrical chest expansion Eyes: PERRL Musculoskeletal: Flexion and extension of lumbar [spine] somewhat guarded secondary to pain, [antalgic gait noted] Neurological: Speech clear, no gross sensory deficit Skin: Incision sites are clean, dry, well-approximated with sutures and bernarda intact and no erythema noted Procedure Details:: Informed consent was obtained and the risk and benefits of the procedure were explained to the patient. Patient was taken to the procedure room where noninvasive monitoring was placed including noninvasive blood pressure cuff and pulse oximeter. Patient's pump was interrogated and was reprogrammed to Dilaudid 0.1999 mg/day. The patient tolerated the procedure well with no complications. Plan and Disposition:: Patient tolerated her intrathecal increase with no complications and was dischar ge neurologically intact. Patient was counseled to continue her postop restrictions the full 6 weeks with minimal bending, twisting or lifting, no submerging in water until her incisions are fully healed and to continue to use her abdominal binder to prevent seroma formation. Patient acknowledges understanding and agrees with plan of care. I did family and marriage counsellor the patient that we will plan on seeing her back in 1 month for reevaluation of symptoms and plan of care. We will see the patient back in the clinic at the next intrathecal refill. Patient has been instructed to contact the clinic with any concerns before the next appointment. Dr. Bux has reviewed this note and agrees with this plan of care. This note was dictated using voice recognition software and make contain errors or omissions. -- It Is medically necessary for this patient to continue to have their intrathecal pump refilled at regular intervals. This patient had an intrathecal pain pump implanted after meeting criteria of chronic intractable pain for greater than 3 months and failing conservative treatments. Patient has committed and been compliant to the treatment plan and all planned follow up care. Since implanta tion of the intrathecal pain pump, the patient has had decreased pain and been more functional. Oral medications have been reduced including intake of oral opioids. Patient continues to do well with intrathecal therapy with decrease in pain symptoms and increase in functional status. Stopping intrathecal medications can lead to life threatening withdrawal, seizures, cardiac arrest, severe pain, and possible . Pumps that are not refilled at regular intervals can be damages and cause and need for replacement. We continually titrate dose and concentration to optimize pain relief and function. We are limited in concentration for certain drugs to safely deliver medications through the pump and stay within the recommendations from the Polyanalgesic Consensus Committee Guidelines. Depending on dose and concentration these pumps may need to be refilled sooner than 3 months as we titrate.
== END 2023-12-12 23:59 | disposition home or self-care (01) ==
PROVIDERS: PCP Family Medicine; Visit Provider Nurse Practitioner Family
DX: M51.16 Intervertebral disc disorders with radiculopathy, lumbar region (principal)
CPT/HCPCS: 62368; 99213; G0463

== ENCOUNTER 2023-12-19 12:21 | Outpatient (CLI) | payer MEDICARE, BC, SELFPAY ==
--- NOTE | 2023-12-19 12:37 | CA_ITS ---
APPROVED REPORT EXAM: Comprehensive 2D, Doppler, and color-flow Echocardiogram Dye Jig Operator: Samantha Oden CRT Ht: 5 ft 0 in Wt: 185lbs BSA: 1.81 BP: 121/70 mmHg Indications: Shortness of Breath, Diabetes, Hyperlipidemia, Hypertension/HDD 2D Dimensions LA Volume 53.30 mL LA Volume Index 28.80 mL/m2 (M/F) 16-34 M-Mode Dimensions RVDd 1.61 cm (0.9-2.6) LA Diam 3.95 cm (1.9-4.0) LVDd 4.43 cm (3.5-5.7) LVDs 3.18 cm (3.5-5.7) IVSd 1.57 cm (0.6-1.1) PWd 0.81 cm (0.6-1.1) EF (Teich) 54.80% FS 28.20% EDV (Teich) 89.10 mL TAPSE 2.81 (<1.7) ESV (Teich) 40.30 mL LV Diastology E Decel Time 200 (160-240 msec) E/A Ratio 0.88 MED A' 10.60 cm/s LAT A' 7.80 cm/s Aortic Valve AI PHT 387.00 ms AO Peak GR. 7.60 mmHg Mitral Valve MV A Velocity 96.0 (40-130 cm/s) E/A Ratio 0.88 Pulmonary Valve PV Peak Velocity 131.0 (50-150 cm/s) Tricuspid Valve TR P. Velocity 301.00 cm/s RAP Estimate 10.00 mmHg RVSP 46.30 mmHg Left Ventricle The left ventricle is normal size. The left ventricular systolic function is normal. The left ventricular ejection fraction is within the normal range. There is increased LV wall thickness. There is normal LV segmental wall motion. Grade 2 diastolic dysfunction is present. LVEF is 60%. Right Ventricle Right ventricle is mild to moderately dilated. Right ventricle is mildly hypokinetic. Atria Left atrium is mildly dilated. Right atrium is mildly dilated. There is no Doppler evidence of interatrial shunt. Aortic Valve The aortic valve is mildly thickened. Mild aortic regurgitation. There is no aortic valvular stenosis. Mitral Valve The mitral valve leaflets are mildly thickened. Moderate mitral regurgitation. No evidence of mitral valve stenosis. Tricuspid Valve The tricuspid valve leaflets are thin and pliable. Mild tricuspid regurgitation. RVSP is 35-40 mmHg. Pulmonic Valve The pulmonary valve is normal in structure. Mild pulmonic regurgitation. Great Vessels The aortic root is normal in size. The ascending aorta is normal in size. IVC is normal in size and collapses >50% with inspiration. Pericardium There is no pericardial effusion. Other Information Study Quality: Fair Conclusion Normal LV systolic function. Grade 2 diastolic dysfunction. Mild to moderate RV dilation with mild reduction in RV function. Biatrial dilation. Moderate MR. Mild AI, mild TR, mild PI. Electronically signed by : Mague Morrell MD 12/23/2023 23:43:12
== END 2023-12-19 23:59 | disposition home or self-care (01) ==
LOC: RT 12:23
PROVIDERS: PCP Family Medicine; Visit Provider Physician Assistant
DX: I05.1 Rheumatic mitral insufficiency (principal)
CPT/HCPCS: 93306

== ENCOUNTER 2023-12-20 12:32 | Outpatient (POV) | payer MEDICARE, BC, SELFPAY ==
[2023-12-20 13:07] VITALS: BP 119/70; PULSE 66; RESP 18; TEMP 36.7; O2SAT 97; BMI 35.2
--- NOTE | 2023-12-20 14:37 | P.PCN_ITS ---
Procedure Date: 12/20/23 Time: 14:37 Anesthesiologist:: Indio Lockhart MD Complications:: None Pre-procedure Diagnosis:: Degenerative disc disease of lumbar spine with lumbar radiculopathy symptoms Post-procedure Diagnosis:: Same Indications for Procedure:: The patient is a pleasant 83-year-old white female who we are treating for low back pain with lumbar colopathy symptoms. She did get her bernarda out today. We did put Steri-Strips over incision it does look like it is healing very nice ly. She is having some increasing pain we did interrogate her pump we increased her dose to 0.23 mg/day of intrathecal Dilaudid. This was a 15% increase. We have also talked her about her PTM and helped her with charging her PTM. We did tell her that charging probably needs to occur every 2 to 3 days. Patient tolerated the increase very well. This moves her refill date to 03/06/2024 Procedure Details:: Informed consent was obtained risk and benefits of the procedure were explained to the patient. The patient was taken the procedure room. The pump was interrogated and increase to 0.23 mg/day. This is a 15% increase. Patient continues on Dilaudid 2 mg/mL. Refill date is now 03/06/2024. Patient tolerated the procedure well with no complications. Plan and Disposition:: We will see her back at her next pump refill. This will be on or before 03/06/2024.
--- NOTE | 2023-12-20 14:46 | PC.NURSE ---
pt had 2 remaining bernarda in incision. Both were removed per dr. ayala, skin glue and steri strips applied to incision. pt tolerated well.
== END 2023-12-20 14:22 | disposition home or self-care (01) ==
PROVIDERS: PCP Family Medicine; Visit Provider Anesthesiology
DX: M51.16 Intervertebral disc disorders with radiculopathy, lumbar region (principal)
CPT/HCPCS: 62368; 99212; 99213; G0463

== ENCOUNTER 2024-01-20 16:29 | Outpatient (CLI) | payer MEDICARE, BC, SELFPAY ==
--- NOTE | 2024-01-20 16:33 | MM_ITS ---
PROCEDURE INFORMATION: Exam: MG Bilateral Screening 3D Mammography Exam date and time: 01/20/2024 4:18 PM Age: 83 years old Clinical indication: Screening examination TECHNIQUE: Imaging protocol: Bilateral Screening tomosynthesis and 2D mammography including computer-aided detection (CAD) when performed. COMPARISON: MG MM DIG SCREENING MAMM BI W/CAD 12/01/2021 3:36 PM FINDINGS: MAMMOGRAPHY: Breast composition: There are scattered areas of fibroglandular density. Mass: No suspicious masses. Architectural distortion: None. Calcifications: No suspicious calcifications. Asymmetric density: None. Skin thickening: None. Axillary adenopathy: None. IMPRESSION: No mammographic evidence of malignancy. Annual screening is recommended unless otherwise clinically indicated. ASSESSMENT: BI-RADS Category 1: Negative.
== END 2024-01-20 23:59 | disposition home or self-care (01) ==
LOC: RAD 16:31
PROVIDERS: PCP Family Medicine; Visit Provider Family Medicine
DX: Z12.31 Encounter for screening mammogram for malignant neoplasm of breast (principal)
CPT/HCPCS: 77063; 77067

== ENCOUNTER 2024-02-21 11:10 | Day surgery (SDC) | payer MEDICARE, BC, SELFPAY ==
[2024-02-21 11:17] VITALS: BP 149/71; PULSE 63; RESP 16; TEMP 36.9; O2SAT 95; BMI 34.7
[2024-02-21 11:45] VITALS: BP 118/68; PULSE 61; RESP 18; O2SAT 95
[2024-02-21 11:48] VITALS: BP 118/68; PULSE 61; RESP 18; O2SAT 95
--- NOTE | 2024-02-21 11:58 | EXP.PAIN.PRO ---
Procedure Date: 02/21/24 Time: 11:50 Anesthesiologist:: Jacquie Osborn APRN Complications:: None Pre-procedure Diagnosis:: Degenerative disc disease of lumbar spine with lumbar radiculopathy symptoms Post-procedure Diagnosis:: Same Indications for Procedure:: Patient is a pleasant 83-year-old female who presents today for intrathecal refill and reprogram. She rates her pain today a 2 out of 10. She denies any new trauma or injury. Patient does state that her pump is working well and she is currently managed with Dilaudid 2 mg/mL with a daily dose of 0.23 mg/day. She denies any side effects from this medication. She is requesting an increase. Her Bradley has been reviewed and is appropriate. Physical Exam: General: Alert and oriented x3, no acute distress, pleasant and cooperative Lungs: Respirations even and unlabored, symmetrical chest expansion Eyes: PERRL Musculoskeletal: Flexion and extension of lumbar [spine] somewhat guarded secondary to pain, [antalgic gait noted] Neurological: Speech clear, no gross sensory deficit Procedure Details:: Informed consent was obtained and the risk and benefits of the procedure were explained to the patient. The patient had noninvasive monitoring placed including noninvasive blood pressure cuff and pulse oximeter. Patient's pump was interrogated. The area over the pump was cleansed with chlorhexidine as a cleansing solution. In sterile fashion the pump was accessed with a 22-gauge needle. Approximately 6.5 mls of the pump solution was removed and discarded appropriately. The pump was then refilled with 20 mL's of Dilaudid 2 mg/mL. The needle was withdrawn and a bandage was placed over the puncture site. The infusion rate was reprogrammed and increased at Dilaudid 0.25 3 2 mg/day. The patient tolerated well with no complication. Plan and Disposition:: Patient tolerated the procedure well with patient's and was discharged neurologically intact. Patient will return to clinic on or before her next intrathecal refill of May 19. In future patient does state that she does go south to [place] during the wintertime and that this is an issue now that they cannot do that at home refill across the [facility]. I did discuss with the patient in future we may be able to increase her concentration this time next year in order that she gets longer refills. We will follow-up with this at future visits. We will see the patient back in the clinic at the next intrathecal refill. Patient has been instructed to contact the clinic with any concerns before the next appointment. Dr. Lockhart has reviewed this note and agrees with this plan of care. This note was dictated using voice recognition software and make contain errors or omissions. -- It Is medically necessary for this patient to continue to have their intrathecal pump refilled at regular intervals. This patient had an intrathecal pain pump implanted after meeting criteria of chronic intractable pain for greater than 3 months and failing conservative treatments. Patient has committed and been compliant to the treatment plan and all planned follow up care. Since implantation of the intrathecal pain pump, the patient has had decreased pain and been more functional. Oral medications have been reduced including intake of oral opioids. Patient continues to do well with intrathecal therapy with decrease in pain symptoms and increase in functional status. Stopping intrathecal medications can lead to life threatening withdrawal, seizures, cardiac arrest, severe pain, and possible . Pumps that are not refilled at regular intervals can be damages and cause and need for replacement. We continually titrate dose and concentration to optimize pain relief and function. We are limited in concentration for certain drugs to safely deliver medications through the pump and stay within the recommendations from the Polyanalgesic Consensus Committee Guidelines. Depending on dose and concentration these pumps may need to be refilled sooner than 3 months as we titrate. A UDS is needed to verify patient's compliance with our office pain contract. This is ordered based off specific treatments related to chronic pain with the potential to abuse certain medications.
[2024-02-21 12:15] VITALS: BP 131/71; PULSE 60; RESP 16; O2SAT 96
== END 2024-02-21 12:15 | disposition home or self-care (01) ==
PROVIDERS: PCP Family Medicine; Visit Provider Nurse Anesthetist, Certified Registered
DX: M51.16 Intervertebral disc disorders with radiculopathy, lumbar region (principal)
CPT/HCPCS: 62370

== ENCOUNTER 2024-05-08 09:25 | Day surgery (SDC) | payer BC, MEDICARE, SELFPAY ==
[2024-05-08 09:39] VITALS: BP 111/65; PULSE 75; RESP 16; TEMP 36.8; O2SAT 95; BMI 34.2
--- NOTE | 2024-05-08 09:41 | EXP.PAIN.PRO ---
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 Today she rates her pain a 5 out of 10. She denies any new trauma or injury. She does state that she would like to have another back brace because higher strain on her old one broke. Patient states that it really does add significant improvement for support around her low back from her previous surgeries. Patient does also make mention that if possible if we could go up a little bit on her dosage. Patient is currently managed with Dilaudid 2 mg/mL with a daily dose of 0.2532 mg/day. She denies any side effects. Patient does state that she does stay still sore around her low back and around the pump and if there is anything that can be done for that.She is prescribed pregabalin from an outside provider. Her Bradley has been reviewed and is appropriate. Physical Exam: General: Alert and oriented x3, no acute distress, pleasant and cooperative Lungs: Respirations even and unlabored, symmetrical chest expansion Eyes: PERRL Musculoskeletal: Flexion and extension of lumbar [spine] somewhat guarded secondary to pain, [antalgic gait noted] Neurological: Speech clear, no gross sensory deficit Procedure Details:: Informed consent was obtained and the risk and benefits of the procedure were explained to the patient. The patient had noninvasive monitoring placed including noninvasive blood pressure cuff and pulse oximeter. Patient's pump was interrogated. The area over the pump was cleansed with chlorhexidine as a cleansing solution. In sterile fashion the pump was accessed with a 22-gauge needle. Approximately 7.4 mls of the pump solution was removed and discarded appropriately. The pump was then refilled with 20 mL's of Dilaudid 10 mg/mL. The needle was withdrawn and a bandage was placed over the puncture site. The infusion rate was reprogrammed and increased 10% to Dilaudid 0.2784 milligrams per day. The patient tolerated well with no complication. Plan and Disposition:: Patient tolerated the procedure well with no complications and was discharged neurologically intact. I will order the patient 5% lidocaine patches to try and see if this helps with some of the overall soreness across her low back and around the pump site. I did also discuss with the patient that we will order her a new back brace to add support and stabilization around her lumbar spine where she has had previous surgery. Patient agrees with this plan of care. Patient will return to clinic on or before their next intrathecal refill date. We will see the patient back in the clinic at the next intrathecal refill. Patient has been instructed to contact the clinic with any concerns before the next appointment. Dr. Lockhart has reviewed this note and agrees with this plan of care. This note was dictated using voice recognition software and make contain errors or omissions. -- It Is medically necessary for this patient to continue to have their intrathecal pump refilled at regular intervals. This patient had an intrathecal pain pump implanted after meeting criteria of chronic intractable pain for greater than 3 months and failing conservative treatments. Patient has committed and been compliant to the treatment plan and all planned follow up care. Since implantation of the intrathecal pain pump, the patient has had decreased pain and been more functional. Oral medications have been reduced including intake of oral opioids. Patient continues to do well with intrathecal therapy with decrease in pain symptoms and increase in functional status. Stopping intrathecal medications can lead to life threatening withdrawal, seizures, cardiac arrest, severe pain, and possible . Pumps that are not refilled at regular intervals can be damages and cause and need for replacement. We continually titrate dose and concentration to optimize pain relief and function. We are limited in concentration for certain drugs to safely deliver medications through the pump and stay within the recommendations from the Polyanalgesic Consensus Committee Guidelines. Depending on dose and concentration these pumps may need to be refilled sooner than 3 months as we titrate. A UDS is needed to verify patient's compliance with our office pain contract. This is ordered based off specific treatments related to chronic pain with the potential to abuse certain medications.
[2024-05-08 09:47] VITALS: BP 121/67; PULSE 78; RESP 18; O2SAT 94
[2024-05-08 09:48] VITALS: BP 121/67; PULSE 75; RESP 18; O2SAT 95
[2024-05-08 10:08] VITALS: BP 134/74; PULSE 71; RESP 16; TEMP 36.8; O2SAT 100
== END 2024-05-08 10:08 | disposition home or self-care (01) ==
PROVIDERS: PCP Family Medicine; Visit Provider Nurse Practitioner Family
DX: M51.16 Intervertebral disc disorders with radiculopathy, lumbar region (principal); M96.1 Postlaminectomy syndrome, not elsewhere classified
CPT/HCPCS: 62370

== ENCOUNTER 2024-07-17 09:07 | Day surgery (SDC) | payer MEDICARE, BC, SELFPAY ==
--- NOTE | 2024-07-17 09:33 | EXP.HP ---
History of Present Illness *Admission Date: 07/17/24 *Reason for visit:: Thecal refill, DDD *History of present illness: Denerative disc disease [facility] Disclaimer: The information contained in this section may have been updated after the patient was seen, as this information can be updated by other users. Medical History Generalized anxiety disorder History of ganglion cyst Presence of intrathecal pump GERD (gastroesophageal reflux disease) Diabetes HLD (hyperlipidemia) HTN (hypertension) Hiatal hernia Impacted cerumen of right ear Dysphagia Otalgia, right ear Tongue pain Surgical History History of ankle surgery History of removal of retained hardware History of lumbar surgery History of shoulder surgery History of hip replacement History of bilateral breast reduction surgery History of knee replacement History of History of cholecystectomy History of tubal ligation History of hysterectomy Hx of appendectomy Family History Other Family history of cancer Family history of cirrhosis of liver Family history of heart disease Family history of polio Family history of thyroid disease Unknown family medical history Social History Smoking Status: Never smoker second hand exposure: No alcohol intake: never substance use type: denies use current occupational status: retired Travel in the last 8 weeks?: None household members: other housing: house current occupational exposures/hazards: No caffeine: Yes Other Medical History Have you received the Flu Vaccine for this season: No Have you received the Pneumonia Vaccine: Yes Review of Systems Review of Systems Review of systems:: pertinent systems reviewed and negative unless documented below Review of systems (narrative): Review of Systems: General: No recent weight changes, no fever, no sleep disturbances Respiratory: No cough, no shortness of air, no recurring pulmonary infections Cardiovascular/peripheral vascular: No chest pain, no palpitations, no edema, no shortness of breath Gastrointestinal: No new onset incontinence, normal bowel movements reported Genitourinary: No new onset incontinence Musculoskeletal: Chronic back pain, left shoulder pain Psychiatric: [Normal mood/affect] Neurological: [Denies weakness in extremities], [denies balance issues] Meds Home Medications and Allergies Home Medications ?Medication ?Instructions ?Recorded ?Confirmed ?Type albuterol sulfate 90 mcg/actuation 1 dose inhalation NEEDED PRN soa 05/03/17 07/17/24 History aerosol inhaler atenolol 25 mg tablet 25 mg PO DAILY Hypertension 05/03/17 07/17/24 History conjugated estrogens 0.625 mg/gram 30 g vaginal WEEKLY hormones 05/03/17 07/17/24 History vaginal cream fenofibrate nanocrystallized 145 145 mg PO DAILY Cholesterol 05/03/17 07/17/24 History mg tablet omeprazole 40 mg capsule,delayed 40 mg PO DAILY GERD 05/03/17 07/17/24 History release potassium chloride 20 mEq oral 20 meq PO BID Supplement 05/03/17 07/17/24 History packet simvastatin 20 mg tablet 20 mg PO DAILY Cholesterol 05/03/17 07/17/24 History baclofen 10 mg tablet 10 mg PO DAILY Pain 11/26/22 07/17/24 History ferrous sulfate 325 mg (65 mg 325 mg PO DAILY SUPPLIMENT 11/26/22 07/17/24 History iron) tablet (FeroSul) fluticasone propionate 50 50 mcg intranasal DIRECTED 11/26/22 07/17/24 History mcg/actuation nasal spray,suspension icosapent ethyl 1 gram capsule 1 g PO DIRECTED . 11/26/22 07/17/24 History irbesartan 300 mg tablet 300 mg PO DAILY BLOOD PRESSURE 11/26/22 07/17/24 History metformin 500 mg tablet 500 mg PO BID Diabetes 11/26/22 07/17/24 History montelukast 10 mg tablet 10 mg PO DAILY ALLERGIES 11/26/22 07/17/24 History nifedipine 30 mg tablet,extended 30 mg PO DAILY BLOOD PRESSURE 11/26/22 07/17/24 History release 24 hr pregabalin 200 mg capsule 200 mg PO BID Pain 11/26/22 07/17/24 History sulfamethoxazole 800 1 tab PO BID 7 days #14 tabs 11/22/23 07/17/24 Rx mg-trimethoprim 160 mg tablet (Bactrim DS) lidocaine 5 % topical patch 1 patch topical DAILY #30 ea 05/08/24 07/17/24 Rx venlafaxine 75 mg capsule,extended 75 mg PO DAILY #30 caps 07/03/24 07/17/24 Rx release 24 hr (Effexor XR) New Prescriptions to Start Prescriptions: Allergies Allergy/AdvReac Type Severity Reaction Status Date / Time shellfish derived Allergy Severe LIPS Verified 07/02/24 14:56 SWELLING Iodinated Contrast Media Allergy Unknown I-HIVES Verified 07/02/24 14:56 (IODINATED CONTRAST- ORAL AND IV DYE) Exam Constitutional Constitutional: no acute distress *Routine HEENT Exam Head: Present normocephalic and atraumatic Eye: Present PERRL ENT: Present mucous membranes moist *Routine Neck Exam Neck: Present supple *Routine Respiratory Exam Respiratory: Present CTA bilaterally *Routine Cardiovascular Exam Cardiovascular: Present RRR *Routine Abdominal Exam Abdominal: Present soft *Routine Rectal Exam Rectal:: deferred *Routine Genitalia Exam Genitalia:: normal female Routine Back/Spine/Pelvis Exam Back/Spine: Present pain with flexion *Routine Skin Exam Skin: Present intact *Routine Neurological Exam Neurological: Present alert and oriented X3 Routine Psychiatric Exam Psychiatric: Present normal affect and normal thought process Assessment and Plan *Assessment and plan (1) Degenerative disc disease, lumbar: Status: Acute Category: Medical Code(s): M51.369 - Other intervertebral disc degeneration, lumbar region without mention of lumbar back pain or lower extremity pain (2) Left shoulder pain: Status: Acute Category: Medical Code(s): M25.512 - Pain in left shoulder Plan Patient has been instructed to contact the clinic with any concerns before the next appointment. Dr. Lockhart has reviewed this note and agrees with this plan of care. This note was dictated using voice recognition software and make contain errors or omissions. All injections are used with Lidocaine, Bupivacaine and dexamethasone. Occasionally urine drug screen is needed to verify patient's compliance with our office pain contract. This is ordered based off specific treatments related to chronic pain with the potential to abuse certain medications.
[2024-07-17 09:35] VITALS: BP 120/65; PULSE 76; RESP 18; O2SAT 97
[2024-07-17 09:37] VITALS: BP 115/70; PULSE 68; RESP 16; TEMP 36.4; O2SAT 97; BMI 33.2
[2024-07-17 09:57] VITALS: BP 126/70; PULSE 78; RESP 16; O2SAT 92
--- NOTE | 2024-07-17 09:57 | P.PCN_ITS ---
Procedure Date: 07/17/24 Time: 09:57 Anesthesiologist:: Jacquie Osborn APRN Complications:: None Pre-procedure Diagnosis:: Degenerative disc disease of lumbar spine with lumbar radiculopathy symptoms, chronic left shoulder pain Post-procedure Diagnosis:: Same Indications for Procedure:: Patient is a pleasant 84-year-old female who presents today for intrathecal refill and reprogram. Today she rates her pain a 5 out of 10. Patient denies any new falls or injuries. She does state that she continues to have the chronic low back pain as well as worsening left shoulder pain. Patient states that both of these have been going on for years and that she has gotten injections in her left shoulder in the past. Patient does state the pain is interfering with her ability perform activities of daily living such as cooking and cleaning and she is interested in additional options that our office can provide. Patient is currently managed with Dilaudid 2 mg/mL with a daily dose of 0.2784 mg/day. She denies any side effects. She is requesting an increase as well as if we can make any adjustments to her PTM device. Her Bradley has been reviewed and is appropriate. Physical Exam: General: Alert and oriented x3, no acute distress, pleasant and cooperative Lungs: Respirations even and unlabored, symmetrical chest expansion Eyes: PERRL Musculoskeletal: Flexion and extension of left shoulder somewhat guarded secondary to pain, [antalgic gait noted] Neurological: Speech clear, no gross sensory deficit Procedure Details:: Informed consent was obtained and the risk and benefits of the procedure were explained to the patient. The patient had noninvasive monitoring placed including noninvasive blood pressure cuff and pulse oximeter. Patient's pump was interrogated. The area over the pump was cleansed with chlorhexidine as a cleansing solution.. In sterile fashion the pump was accessed with a 22-gauge needle. Approximately 7.9 mls of the pump solution was removed and discarded appropriately. The pump was then refilled with 20 mL's of Dilaudid 2 mg/mL. The needle was withdrawn and a bandage was placed over the puncture site. The infusion rate was reprogrammed and increased 10% to 0.3065 mg/day. The patient tolerated well with no complication. Plan and Disposition:: Patient tolerated the procedure well with no complications and was discharged neurologically intact. Patient is experiencing worsening pain in her left shoulder with limited range of motion. Patient has continued conservative therapy including oral medications, heat and ice, topicals, at home stretching exercise for longer than 12 weeks. Patient has had chronic shoulder pain for longer than 6 months. I did discuss with the patient that I do believe she would benefit from a intra-articular shoulder injection. Risk and benefits were discussed with the patient and she would like to proceed forward with this plan of care. Patient has been counseled she will be given 2 appointments today 1 f or the left intra-articular shoulder injection and 1 for her intrathecal refill. Patient's intra-articular shoulder injection will be done without fluoroscopic or ultrasound guidance. Patient acknowledges understanding agrees with plan of care. Patient will return to clinic on or before their next intrathecal refill date. We will see the patient back in the clinic at the next intrathecal refill. Patient has been instructed to contact the clinic with any concerns before the next appointment. Dr. Lockhart has reviewed this note and agrees with this plan of care. This note was dictated using voice recognition software and make contain errors or omissions. -- It Is medically necessary for this patient to continue to have their intrathecal pump refilled at regular intervals. This patient had an intrathecal pain pump implanted after meeting criteria of chronic intractable pain for greater than 3 months and failing conservative treatments. Patient has committed and been compliant to the treatment plan and all planned follow up care. Since implantation of the intrathecal pain pump, the patient has had decreased pain and been more functional. Oral medications have been reduced including intake of oral opioids. Patient continues to do well with intrathecal therapy with decrease in pain symptoms and increase in functional status. Stopping intrathecal medications can lead to life threatening withdrawal, seizures, cardiac arrest, severe pain, and possible . Pumps that are not refilled at regular intervals can be damages and cause and need for replacement. We continually titrate dose and concentration to optimize pain relief and function. We are limited in concentration for certain drugs to safely deliver medications through the pump and stay within the recommendations from the Polyanalges[employer] Consensus Committee Guidelines. Depending on dose and concentration these pumps may need to be refilled sooner than 3 months as we titrate. A UDS is needed to verify patient's compliance with our office pain contract. This is ordered based off specific treatments related to chronic pain with the potential to abuse certain medications.
--- NOTE | 2024-07-17 10:05 | P.HP_ITS ---
History of Present Illness *Admission Date: 07/17/24 *Reason for visit:: Intrathecal refill and reprogram: DDD *History of present illness: Denerative disc disease [facility] Disclaimer: The information contained in this section may have been updated after the patient was seen, as this information can be updated by other users. Medical History Generalized anxiety disorder History of ganglion cyst Presence of intrathecal pump GERD (gastroesophageal reflux disease) Diabetes HLD (hyperlipidemia) HTN (hypertension) Hiatal hernia Impacted cerumen of right ear Dysphagia Otalgia, right ear Tongue pain Surgical History History of ankle surgery History of removal of retained hardware History of lumbar surgery History of shoulder surgery History of hip replacement History of bilateral breast reduction surgery History of knee replacement History of History of cholecystectomy History of tubal ligation History of hysterectomy Hx of appendectomy Family History Other Family history of cancer Family history of cirrhosis of liver Family history of heart disease Family history of polio Family history of thyroid disease Unknown family medical history Social History Smoking Status: Never smoker second hand exposure: No alcohol intake: never substance use type: denies use current occupational status: retired Travel in the last 8 weeks?: None household members: other housing: house current occupational exposures/hazards: No caffeine: Yes Other Medical History Have you received the Flu Vaccine for this season: No Have you received the Pneumonia Vaccine: Yes Review of Systems Review of Systems Review of systems:: pertinent systems reviewed and negative unless documented below Review of systems (narrative): Review of Systems: General: No recent weight changes, no fever, no sleep disturbances Respiratory: No cough, no shortness of air, no recurring pulmonary infections Cardiovascular/peripheral vascular: No chest pain, no palpitations, no edema, no shortness of breath Gastrointestinal: No new onset incontinence, normal bowel movements reported Genitourinary: No new onset incontinence Musculoskeletal: Chronic back pain Psychiatric: [Normal mood/affect] Neurological: [Denies weakness in extremities], [denies balance issues] Meds Home Medications and Allergies Home Medications ?Medication ?Instructions ?Recorded ?Confirmed ?Type albuterol sulfate 90 mcg/actuation 1 dose inhalation NEEDED PRN soa 05/03/17 07/17/24 History aerosol inhaler atenolol 25 mg tablet 25 mg PO DAILY Hypertension 05/03/17 07/17/24 History conjugated estrogens 0.625 mg/gram 30 g vaginal WEEKLY hormones 05/03/17 07/17/24 History vaginal cream fenofibrate nanocrystallized 145 145 mg PO DAILY Cholesterol 05/03/17 07/17/24 History mg tablet omeprazole 40 mg capsule,delayed 40 mg PO DAILY GERD 05/03/17 07/17/24 History release potassium chloride 20 mEq oral 20 meq PO BID Supplement 05/03/17 07/17/24 History packet simvastatin 20 mg tablet 20 mg PO DAILY Cholesterol 05/03/17 07/17/24 History baclofen 10 mg tablet 10 mg PO DAILY Pain 11/26/22 07/17/24 History ferrous sulfate 325 mg (65 mg 325 mg PO DAILY SUPPLIMENT 11/26/22 07/17/24 History iron) tablet (FeroSul) fluticasone propionate 50 50 mcg intranasal DIRECTED 11/26/22 07/17/24 History mcg/actuation nasal spray,suspension icosapent ethyl 1 gram capsule 1 g PO DIRECTED . 11/26/22 07/17/24 History irbesartan 300 mg tablet 300 mg PO DAILY BLOOD PRESSURE 11/26/22 07/17/24 History metformin 500 mg tablet 500 mg PO BID Diabetes 11/26/22 07/17/24 History montelukast 10 mg tablet 10 mg PO DAILY ALLERGIES 11/26/22 07/17/24 History nifedipine 30 mg tablet,extended 30 mg PO DAILY BLOOD PRESSURE 11/26/22 07/17/24 History release 24 hr pregabalin 200 mg capsule 200 mg PO BID Pain 11/26/22 07/17/24 History sulfamethoxazole 800 1 tab PO BID 7 days #14 tabs 11/22/23 07/17/24 Rx mg-trimethoprim 160 mg tablet (Bactrim DS) lidocaine 5 % topical patch 1 patch topical DAILY #30 ea 05/08/24 07/17/24 Rx venlafaxine 75 mg capsule,extended 75 mg PO DAILY #30 caps 07/03/24 07/17/24 Rx release 24 hr (Effexor XR) New Prescriptions to Start Prescriptions: Allergies Allergy/AdvReac Type Severity Reaction Status Date / Time shellfish derived Allergy Severe LIPS Verified 07/02/24 14:56 SWELLING Iodinated Contrast Media Allergy Unknown I-HIVES Verified 07/02/24 14:56 (IODINATED CONTRAST- ORAL AND IV DYE) Exam Data for Last 24 hours Vital signs and Labs for Last 24 Hours: Temp Pulse Resp BP Pulse Ox O2 Del Method 97.6 F 78 16 126/70 92 L Room Air 07/17/24 09:37 07/17/24 09:57 07/17/24 09:57 07/17/24 09:57 07/17/24 09:57 07/17/24 09:57 I & O for Last 24 hours: Intake & Output 07/14/24 07/15/24 07/16/24 07/17/24 23:59 23:59 23:59 23:59 Weight 170 lb Constitutional Constitutional: no acute distress *Routine HEENT Exam Head: Present normocephalic and atraumatic Eye: Present PERRL ENT: Present mucous membranes moist *Routine Neck Exam Neck: Present supple *Routine Respiratory Exam Respiratory: Present CTA bilaterally *Routine Cardiovascular Exam Cardiovascular: Present RRR *Routine Abdominal Exam Abdominal: Present soft *Routine Rectal Exam Rectal:: deferred *Routine Genitalia Exam Genitalia:: normal female Routine Back/Spine/Pelvis Exam Back/Spine: Present pain with flexion *Routine Skin Exam Skin: Present intact *Routine Neurological Exam Neurological: Present alert and oriented X3 Routine Psychiatric Exam Psychiatric: Present normal affect and normal thought process Assessment and Plan *Assessment and plan (1) Degenerative disc disease: Status: Acute Category: Medical Plan Patient has been instructed to contact the clinic with any concerns before the next appointment. Dr. Lockhart has reviewed this note and agrees with this plan of care. This note was dictated using voice recognition software and make contain errors or omissions. All injections are used with Lidocaine, Bupivacaine and dexamethasone. Occasionally urine drug screen is needed to verify patient's compliance with our office pain contract. This is ordered based off specific treatments related to chronic pain with the potential to abuse certain medications.
--- NOTE | 2024-07-17 10:07 | EXP.PAIN.PRO ---
Procedure Date: 07/17/24 Time: 10:07 Anesthesiologist:: Jacquie Osborn APRN Complications:: None Pre-procedure Diagnosis:: Degenerative disc disease of the lumbar spine with lumbar radiculopathy symptoms, rheumatoid arthritis Post-procedure Diagnosis:: Same Indications for Procedure:: Patient is a pleasant 84-year-old female who presents today for intrathecal refill and reprogram. Today she rates her pain a 6 out of 10. She denies any new trauma or injury. Patient is currently prescribed tramadol
== END 2024-07-17 09:57 | disposition home or self-care (01) ==
PROVIDERS: PCP Family Medicine; Visit Provider Nurse Practitioner Family
DX: M51.16 Intervertebral disc disorders with radiculopathy, lumbar region (principal); M25.512 Pain in left shoulder; G89.29 Other chronic pain
CPT/HCPCS: 62370; 99212; G0463

== ENCOUNTER 2024-08-18 11:49 | Day surgery (SDC) | payer MEDICARE, BC, SELFPAY ==
[2024-08-18 12:02] VITALS: BP 145/66; PULSE 68; RESP 16; TEMP 36.4; O2SAT 92; BMI 35.2
[2024-08-18] MEDS: BUPIVACAINE 0.25% 10ML INJ 25 MG IJ (12:16)
--- NOTE | 2024-08-18 12:16 | EXP.PAIN.PRO ---
Procedure Date: 08/18/24 Time: 12:15 Anesthesiologist:: Carl Castaneda CRNA Complications:: None Pre-procedure Diagnosis:: DJD left shoulder. Chronic left shoulder pain. Post-procedure Diagnosis:: Same. Indications for Procedure:: Patient is a very pleasant 84-year-old female comes our clinic today for a left intra-articular shoulder injection of cortisone local anesthetic. Patient describes left shoulder pain that is constant, dull, aching. She reports left shoulder pain extends down to her hand at times. Patient has 5/5 strength in the left arm. However, limited range of motion secondary to shoulder pain. She rates her pain 7/10. Procedure Details:: Procedure Details: Left shoulder intra-articular injection Informed consent was obtained risk and benefits of the procedure were explained to the patient. Patient was taken to the procedure room. The Left shoulder was prepped using ChloraPrep. A 25-gauge needle was used posteriorly to inject 10 mL bupivacaine 0.25% and Depo-Medrol 40 mg. Patient tolerated procedure well with no complications. Plan and Disposition:: Patient was discharged without incident.
[2024-08-18] MEDS: LIDOCAINE 1% 5ML PF VIAL 5 ML (12:17)
[2024-08-18] MEDS: DEXAMETHASONE 10MG/ML 1ML VIAL 10 MG (12:17)
[2024-08-18 12:18] VITALS: BP 145/66; PULSE 68; RESP 18; O2SAT 93
[2024-08-18 12:20] VITALS: BP 145/66; PULSE 68; RESP 18; O2SAT 93
[2024-08-18 12:24] VITALS: BP 150/74; PULSE 70; RESP 16; O2SAT 92
== END 2024-08-18 12:24 | disposition home or self-care (01) ==
PROVIDERS: PCP Family Medicine; Visit Provider Nurse Anesthetist, Certified Registered
DX: M19.012 Primary osteoarthritis, left shoulder (principal); G89.29 Other chronic pain; E11.9 Type 2 diabetes mellitus without complications; R13.10 Dysphagia, unspecified; K21.9 Gastro-esophageal reflux disease without esophagitis; K44.9 Diaphragmatic hernia without obstruction or gangrene; E78.5 Hyperlipidemia, unspecified; I10 Essential (primary) hypertension; F41.1 Generalized anxiety disorder; Z90.49 Acquired absence of other specified parts of digestive tract; Z90.710 Acquired absence of both cervix and uterus; Z96.659 Presence of unspecified artificial knee joint; Z96.649 Presence of unspecified artificial hip joint; Z98.51 Tubal ligation status; Z91.013 Allergy to seafood; Z91.041 Radiographic dye allergy status; Z79.899 Other long term (current) drug therapy; Z79.84 Long term (current) use of oral hypoglycemic drugs; Z79.51 Long term (current) use of inhaled steroids
CPT/HCPCS: 20610; J0665; J1100; J2003

== ENCOUNTER 2024-09-02 15:18 | Outpatient (POV) | payer MEDICARE, BC, SELFPAY ==
--- OUTSIDE RECORDS SUMMARY | 2024-09-02 15:21 | XMS_ITS | Encounter Summary ---
Author Organization [employer] Address [address] [place] [address] Care Team Providers Care Fire Patrol Name Role Phone Yee Quintero APRN Unavailable [phone] Jordan Johnson MD Primary Care Provider [phone] Yanna Gonzalez MD Unavailable [phone] Encounter Details Date Type Department Care Team (Late st Contact Info) Description 03/29/2022 Outside Orders [facility] OP Physical Therapy [address] [place] [id number] Yanna Gonzalez MD [address] [facility] [place] [address] Encounter for orthopedic follow-up care (Primary Dx); Decreased mobility Social History Tobacco Use Types Packs/Day Years Used Date Smoking Tobacco: Never Assessed Comments Unknown Sex and Gender Information Value Date Recorded Sex Assigned at Not on file Legal Sex Female 6:13 PM CDT Gender Identity Not on file Sexual Orientation Not on file documented as of this encounter Plan of Treatment Not on file documented as of this encounter Visit Diagnoses Diagnosis Encounter for orthopedic follow-up care- Primary Decreased mobility documented in this encounter Care Teams Fire Patrol Relationship Specialty Start Date End Date Jordan Johnson MD [address] [facility] [address] [place] [id number] PCP - General Family Medicine 03/29/22 Yee Quintero APRN [address] [address] Orthopedist Nurse Practitioner 11/29/21 Yanna Gonzalez MD [address] [facility] [place], [address] [address] Referring Physician [facility] 03/29/22 documented as of this encounter
--- OUTSIDE RECORDS SUMMARY | 2024-09-02 15:21 | XMS_ITS ---
Author Organization Unknown TREATMENT PLAN Planned Care Start Date Provider Encounter for Check-up [id number] [facility]
--- OUTSIDE RECORDS SUMMARY | 2024-09-02 15:21 | XMS_ITS | Clinical Summary ---
Author Organization [facility] Address [address] [place] [id number] Care Team Providers Care Drama Director Name Role Phone Unavailable Primary Care Provider Unavailabl e Source Comments This information has been disclosed to you from confidential records protectedfrom disclosure by state law. You shall make no further disclosure of thisinformation without the specific, written, and informed release of theindividual to whom it pertains, or as otherwise permitted by law. A generalauthorization for the release of medical or other information is not sufficientfor the purposes of therelease of HIV test results or diagnoses. [id number] Social History Tobacco Use Types Packs/Day Years Used Date Smoking Tobacco: Never Assessed Comments Unknown Sex and Gender Information Value Date Recorded Sex Assigned at Not on file Legal Sex Female 11:18 PM EST Gender Identity Not on file Sexual Orientation Not on file Plan of Treatment Not on file
--- OUTSIDE RECORDS SUMMARY | 2024-09-02 15:21 | XMS_ITS | Data Portability ---
Author Organization [place] - [facility] [place] Address [facility] [place] [address] Care Team Providers Care Filter Screen Cleaner Name Role Phone MARTHA ABEBE Primary Care Provider [phone] Assessment No assessment recorded. Plan of Treatment Reminders Order Date Submit Date Provider Last Modified By Organization Details Last Modified Time Details Appointments None record ed. Lab None record ed. Referral None record ed. Procedures None record ed. Surgeries None record ed. Imaging None record ed. Medication Orders None record ed. Patient TargetsNo targets recorded. Patient InstructionsNo instructions recorded. Reason for Referral None Reported. Results Created Date Observation Date Name Description Value Unit Range Abnormal Flag Note LastModifiedBy Organization Detail LastModifiedTime 11/25/19 22 nerve condu ction study /EMG (PROC ) No observ ation record ed. [email or web address] Not Available 11/09 10:39:57 11/29/19 22 nerve condu ction study /EMG (PROC ) No observ ation record ed. [email or web address] Not Available 2021 11:10:47 Result Notes None recorded. Medical Equipment None Reported. Allergies No known drug allergies Medications Name Sig Start Date Stop Date Status Note LastModified by Organization Details LastModified Time metformin 500 mg tablet TAKE 1 TABLET BY MOUTH TWICE DAILY active Not Available Not Available No t Available potassium chloride ER 10 mEq capsule,extend ed release TAKE 1 CAPSULE BY MOUTH TWICE DAILY active Not Available Not Available No t Available hydrocodone 5 mg-acetaminoph en 325 mg tablet TAKE 1 TABLET BY MOUTH THREE TIMES DAILY NEEDED FOR SEVERE PAIN active Not Available Not Available No t Available ondansetron HCl 4 mg tablet TAKE 1 TABLET BY MOUTH EVERY 8 HOURS NEEDED active Not Available Not Available No t Available sertraline 100 mg tablet TAKE 2 TABLETS BY MOUTH ONCE DAILY active Not Available Not Available No t Available atenolol 25 mg tablet TAKE 1 TABLET BY MOUTH ONCE DAILY active Not Available Not Available No t Available meclizine 12.5 mg tablet TAKE 1 TABLET BY MOUTH THREE TIMES DAILY active Not Available Not Available No t Available nifedipine ER 30 mg tablet,extende d release TAKE 1 TABLET BY MOUTH TWICE DAILY active Not Available Not Available No t Available omeprazole 40 mg capsule,delaye d release TAKE 1 CAPSULE BY MOUTH ONCE DAILY active Not Available Not Available No t Available quetiapine 100 mg tablet TAKE 1 TABLET BY MOUTH ONCE DAILY IN THE EVENING active Not Available Not Available No t Available oxycodone-acet aminophen 5 mg-325 mg tablet TAKE 1 TO 2 TABLETS BY MOUTH EVERY 4 HOURS NEEDED FOR PAIN . DO NOT EXCEED 6 PER 24 HOURS active Not Available Not Available No t Available amoxicillin 875 mg tablet TAKE 1 TABLET BY MOUTH EVERY 12 HOURS FOR 10 DAYS active Not Available Not Available No t Available baclofen 10 mg tablet TAKE 1 TABLET BY MOUTH THREE TIMES DAILY active Not Available Not Available No t Available hydrocodone 7.5 mg-acetaminoph en 325 mg tablet TAKE 1 TABLET BY MOUTH EVERY 4 HOURS NEEDED FOR PAIN MAX DAILY AMOUNT 6 TABLETS active Not Available Not Available No t Available simvastatin 20 mg tablet TAKE 1 TABLET BY MOUTH ONCE DAILY AT BEDTIME active Not Available Not Available No t Available montelukast 10 mg tablet TAKE 1 TABLET BY MOUTH ONCE DAILY NEEDED active Not Available Not Available No t Available mupirocin 2 % topical ointment APPLY A SMALL AMOUNT TO THE INSIDE OF EACH NOSTRIL TWICE DAILY FOR 5 DAYS PRIOR TO SURGERY active Not Available Not Available No t Available cefdinir 300 mg capsule TAKE 1 CAPSULE BY MOUTH TWICE DAILY FOR 10 DAYS active Not Available Not Available No t Available fluticasone propionate 50 mcg/actuation nasal spray,suspensi on USE 1 SPRAY(S) IN EACH NOSTRIL DIRECTED ONCE DAILY active Not Available Not Available No t Available irbesartan 300 mg tablet TAKE 1 TABLET BY MOUTH ONCE DAILY active Not Available Not Available No t Available nitrofurantoin monohydrate/ma crocrystals 100 mg capsule TAKE 1 CAPSULE BY MOUTH TWICE DAILY FOR 5 DAYS active Not Available Not Available No t Available pregabalin 150 mg capsule TAKE 1 CAPSULE BY MOUTH TWICE DAILY active Not Available Not Available No t Available fenofibrate nanocrystalliz ed 145 mg tablet TAKE 1 TABLET BY MOUTH ONCE DAILY active Not Available Not Available No t Available FeroSul 325 mg (65 mg iron) tablet TAKE 1 TABLET BY MOUTH ONCE DAILY active Not Available Not Available No t Available blood pressure test kit-large cuff active Not Available Not Available Not Available Vascepa 1 gram capsule TAKE 2 CAPSULES BY MOUTH TWICE DAILY FOR 90 DAYS active Not Available Not Available No t Available Vitals Date Recorded Body temperature Body weight Oxygen saturation Oxygen saturation in Arterial blood by Pulse oximetry Heart rate Provider Name and Address Organization Details Last Updated DateTime 2 97.3 [degF] 67307.0 3 g 98 % 98 % 74 /min Sally ALMENDAREZ [facility] & [place] 2 11:07:50 Social History None recorded. Functional Status None recorded. Mental Status None recorded. Family History Nothing Reported. Medical History No medical history recorded. Gynecological HistoryNo gynecological history recorded. Obstetrics History GPAL:G 0 P 0 0 0 0 Past Encounters Encounter ID Performer Location Encounter Start Date Encounter Closed Date Diagnosis/Indication Diagnosis SNOMED-CT Code Diagnosis ICD10 Code Diagnosis Note [id number] Sav Salgado M.D [facility] [address],[facility] [address] [facility] [place] [address] 11/21/2021 10:51:59 11/21/2021 11:42:11 Cervical radiculitis 00025947 M54.12 Paresthesia 08074549 R20 .2 Health Concerns Section Related Observation LastModified by Organization Detai ls LastModified Time None Recorded Concern Status LastModified by Organization Details LastModified Time None Recorded Advance Directives Directive None Recorded Payers Insurance Date Sequence Insurance Name Policy Number Policy Carrasco Covered Member ID Carrasco Member ID Guarantor Name 09/28/2023 1 [employer] (MEDICARE REPLACEMENT/ ADVANTAGE - PPO) Mariely Reyes [id number] Mariely Reyes 09/28/2023 2 [place] [employer] [id number] Mariely Reyes [id number] Mariely Reyes OBGyn Episode No OBEpisode recorded.
--- OUTSIDE RECORDS SUMMARY | 2024-09-02 15:21 | XMS_ITS | Encounter Summary ---
Author Organization [employer] Address [address] [facility] [facility] [place] [address] Care Team Providers Care Warp Splitter Name Role Phone Yee Quintero APRN Unavailable [phone] Jordan Johnson MD Primary Care Provider [phone] Yanna Gonzalez MD Unavailable [phone] Encounter Details Date Type Department Care Team (Late st Contact Info) Description 11/29/2021 Outside Orders [facility] OP Physical Therapy [address] [address] Yee Quintero APRN [address] [facility] [address] [place] [address] S/P shoulder replacement, right (Primary Dx) Social History Tobacco Use Types Packs/Day Years Used Date Smoking Tobacco: Never Assessed Comments Unknown Sex and Gender Information Value Date Recorded Sex Assigned at Not on file Legal Sex Female 6:13 PM CDT Gender Identity Not on file Sexual Orientation Not on file documented as of this encounter Plan of Treatment Not on file documented as of this encounter Visit Diagnoses Diagnosis S/P shoulder replacement, right- Primary documented in this encounter Care Teams Warp Splitter Relationship Specialty Start Date End Date Jordan Johnson MD [address] [facility] [address] [place] [address] PCP - General Family Medicine 03/29/22 Yee Quintero APRN [address], [facility] [address] [place], [place] [id number] Orthopedist Nurse Practitioner 11/29/21 Yanna Gonzalez MD [address], [facility] [address] [place] [address] Referring Physician Tailor Fitter Foot and Ankle Surgery 03/29/22 documented as of this encounter
--- OUTSIDE RECORDS SUMMARY | 2024-09-02 15:21 | XMS_ITS | Clinical Summary ---
Author Organization [facility] [employer] Address [address] [place] [address] Care Team Providers Care Mold Mechanic Name Role Phone Yee Quintero APRN Unavailable [phone] Jordan Johnson MD Primary Care Provider + [phone] Yanna Gonzalez MD Unavailable [phone] Social History Tobacco Use Types Packs/Day Years Used Date Smoking Tobacco: Never Assessed Comments Unknown Sex and Gender Information Value Date Recorded Sex Assigned at Not on file Legal Sex Female 6:13 PM CDT Gender Identity Not on file Sexual Orientation Not on file Plan of Treatment Not on file Insurance BLUE CROSS/BLUE [employer]IELD [employer] MEDICARE PPO Care Teams Mold Mechanic Relationship Specialty Start Date End Date Jordan Johnson MD [address] [place] [address] PCP - General Family Medicine 03/29/22 Yee Quintero, NELLIE [address] [address] Orthopedist Nurse Practitioner 11/29/21 Yanna Gonzalez MD [address] [address] Referring Physician Marine Gear Keeper Foot and Ankle Surgery 03/29/22
--- OUTSIDE RECORDS SUMMARY | 2024-09-02 15:21 | XMS_ITS | Referral Summary ---
Author Organization [employer] Address [address] [place] [address] Care Team Providers Care Brake Press Operator Name Role Phone Yee Quintero APRN Unavailable [phone] Jordan Johnson MD Primary Care Provider + [phone] Yanna Gonzalez MD Unavailable [phone] Social History Tobacco Use Types Packs/Day Years Used Date Smoking Tobacco: Never Assessed Comments Unknown Sex and Gender Information Value Date Recorded Sex Assigned at Not on file Legal Sex Female 6:13 PM CDT Gender Identity Not on file Sexual Orientation Not on file Plan of Treatment Not on file Insurance BLUE CROSS/BLUE SHIELD [employer] MEDICARE PPO Care Teams Brake Press Operator Relationship Specialty Start Date End Date Jordan Johnson MD [address] [place] [address] PCP - General Family Medicine 03/29/22 Yee Quintero, NELLIE [address] [address] Orthopedist Nurse Practitioner 11/29/21 Yanna Gonzalez MD [address] [address] Referring Physician Tank Inspector Foot and Ankle Surgery 03/29/22
[2024-09-02 15:49] VITALS: BP 131/65; PULSE 74; RESP 16; O2SAT 95; BMI 34.2
--- NOTE | 2024-09-02 15:57 | EXP.PAIN.SOA ---
[facility] Disclaimer: The information contained in this section may have been updated after the patient was seen, as this information can be updated by other users. Medical History Generalized anxiety disorder continue effexor 75 mg daily History of ganglion cyst Presence of intrathecal pump GERD (gastroesophageal reflux disease) Diabetes HLD (hyperlipidemia) HTN (hypertension) Hiatal hernia Impacted cerumen of right ear Dysphagia Otalgia, right ear Tongue pain Surgical History History of ankle surgery History of removal of retained hardware History of lumbar surgery History of shoulder surgery History of hip replacement History of bilateral breast reduction surgery History of knee replacement History of History of cholecystectomy History of tubal ligation History of hysterectomy Hx of appendectomy Family History Other Family history of cancer Family history of cirrhosis of liver Family history of heart disease Family history of polio Family history of thyroid disease Unknown family medical history Social History Smoking Status: Never smoker second hand exposure: No alcohol intake: never substance use type: denies use current occupational status: other Travel in the last 8 weeks?: None household members: other housing: house current occupational exposures/hazards: No caffeine: Yes PM Subjective & Objective Subjective Subjective:: Patient is a pleasant 84-year-old female who presents today for follow-up of left shoulder intra-articular injection on 08/18/2024. Today she rates her pain a 6 out of 10. She denies any new falls or injuries. She does state that this injection has provided at least 90% improvement and is doing well overall. Today her complaint is primarily regarding her left knee. Patient states it is hot to touch and has been swelling with increased activity. She does state the pain is worse when she is up walking moving and it is interfering with her ability perform activities of daily living such as cooking and cleaning. Patient has had previous knee replacement on this side. Patient is interested in additional injection therapy.. Patient is also managed with intrathecal Dilaudid 2 mg/mL with a daily dose of 0.3065 mg/day. She denies any side effects. Her Bradley has been reviewed and is appropriate. Review of Systems: General: No recent weight changes, no fever, no sleep disturbances Respiratory: No cough, no shortness of air, no recurring pulmonary infections Cardiovascular/peripheral vascular: No chest pain, no palpitations, no edema, no shortness of breath Gastrointestinal: No new onset incontinence, normal bowel movements reported Genitourinary: No new onset incontinence Musculoskeletal: Left knee pain Psychiatric: [Normal mood/affect] Neurological: [Denies weakness in extremities], [denies balance issues] Pain at rest (0-10 scale): 6 Objective Objective:: Physical Exam: General: Alert and oriented x3, no acute distress, pleasant and cooperative Lungs: Respirations even and unlabored, symmetrical chest expansion Eyes: PERRL Musculoskeletal: Flexion and extension of left knee somewhat guarded secondary to pain, [antalgic gait noted] point tenderness along the lateral/posterior aspect Neurological: Speech clear, no gross sensory deficit Has patient had previous pain injection?: Yes Percent improvement in pain since last injection: 90% Conservative treatment options previously tried: Home exercise plan Length of treatment: Longer than 12 weeks Meds Home Medications and Allergies Home Medications ?Medication ?Instructions ?Recorded ?Confirmed ?Type albuterol sulfate 90 mcg/actuation 1 dose inhalation NEEDED PRN soa 05/03/17 09/02/24 History aerosol inhaler atenolol 25 mg tablet 25 mg PO DAILY Hypertension 05/03/17 09/02/24 History conjugated estrogens 0.625 mg/gram 30 g vaginal WEEKLY hormones 05/03/17 09/02/24 History vaginal cream fenofibrate nanocrystallized 145 145 mg PO DAILY Cholesterol 05/03/17 09/02/24 History mg tablet omeprazole 40 mg capsule,delayed 40 mg PO DAILY GERD 05/03/17 09/02/24 History release potassium chloride 20 mEq oral 20 meq PO BID Supplement 05/03/17 09/02/24 History packet simvastatin 20 mg tablet 20 mg PO DAILY Cholesterol 05/03/17 09/02/24 History baclofen 10 mg tablet 10 mg PO DAILY Pain 11/26/22 09/02/24 History ferrous sulfate 325 mg (65 mg 325 mg PO DAILY SUPPLIMENT 11/26/22 09/02/24 History iron) tablet (FeroSul) fluticasone propionate 50 50 mcg intranasal DIRECTED 11/26/22 09/02/24 History mcg/actuation nasal spray,suspension icosapent ethyl 1 gram capsule 1 g PO DIRECTED . 11/26/22 09/02/24 History irbesartan 300 mg tablet 300 mg PO DAILY BLOOD PRESSURE 11/26/22 09/02/24 History metformin 500 mg tablet 500 mg PO BID Diabetes 11/26/22 09/02/24 History montelukast 10 mg tablet 10 mg PO DAILY ALLERGIES 11/26/22 09/02/24 History nifedipine 30 mg tablet,extended 30 mg PO DAILY BLOOD PRESSURE 11/26/22 09/02/24 History release 24 hr pregabalin 200 mg capsule 200 mg PO BID Pain 11/26/22 09/02/24 History sulfamethoxazole 800 1 tab PO BID 7 days #14 tabs 11/22/23 09/02/24 Rx mg-trimethoprim 160 mg tablet (Bactrim DS) lidocaine 5 % topical patch 1 patch topical DAILY #30 ea 05/08/24 09/02/24 Rx venlafaxine 75 mg capsule,extended 75 mg PO DAILY #30 caps 08/07/24 09/02/24 Rx release 24 hr (Effexor XR) hydroxyzine HCl 10 mg tablet 10 mg PO HS #30 tabs 08/21/24 09/02/24 Rx New Prescriptions to Start Prescriptions: Allergies Allergy/AdvReac Type Severity Reaction Status Date / Time shellfish derived Allergy Severe LIPS Verified 08/20/24 14:00 SWELLING Iodinated Contrast Media Allergy Unknown I-HIVES Verified 08/20/24 14:00 (IODINATED CONTRAST- ORAL AND IV DYE) Assessment and Plan *Assessment and plan (1) Left knee pain: Status: Acute Category: Medical Code(s): M25.562 - Pain in left knee Plan Patient is experiencing chronic left knee pain that is going on for years. Patient ended up having multiple knee replacement surgeries as she had loosening hardware initially after her first replacement. Patient did have limited range of motion of her left knee along with point tenderness with palpation along the posterior lateral aspect. I did discuss with the patient due to her previous history of knee replacement that I would recommend a infrapatellar nerve block. Risk and benefits were discussed with patient and she would like to proceed forward with this plan of care. Patient has tried and failed conservative therapy including oral medication, heat and ice, topicals, previous physical therapy and continued at home stretching exercise for longer than 12 weeks that was physician guided. Patient will be scheduled for a left infrapatellar nerve block. This will be done without fluoroscopic or ultrasound guidance. Patient is going to [place] to help with her friend's hip replacement coming up on September 18. Patient was counseled if her injection appointment does interfere with when she comes back she can call to reschedule this appointment. Patient agrees with this plan of care. Patient has been instructed to contact the clinic with any concerns before the next appointment. Dr. Lockhart has reviewed this note and agrees with this plan of care. This note was dictated using voice recognition software and make contain errors or omissions. All injections are used with Lidocaine, Bupivacaine and dexamethasone. Occasionally urine drug screen is needed to verify patient's compliance with our office pain contract. This is ordered based off specific treatments related to chronic pain with the potential to abuse certain medications.
== END 2024-09-02 23:59 | disposition home or self-care (01) ==
LOC: SC.PAIN 15:19
PROVIDERS: PCP Family Medicine; Visit Provider Nurse Practitioner Family
DX: M25.562 Pain in left knee (principal); Z79.899 Other long term (current) drug therapy
CPT/HCPCS: 99212; G0463

== ENCOUNTER 2024-09-18 11:03 | Day surgery (SDC) | payer MEDICARE, BC, SELFPAY ==
[2024-09-18 11:21] VITALS: BP 109/60; PULSE 81; RESP 18; O2SAT 92; BMI 34.2
[2024-09-18 11:27] VITALS: BP 124/70; PULSE 83; RESP 18; O2SAT 94
--- NOTE | 2024-09-18 11:41 | EXP.PM.HP ---
History of Present Illness *Admission Date: 09/18/24 *Reason for visit:: Intrathecal refill; DDD *History of present illness: Same [facility] Disclaimer: The information contained in this section may have been updated after the patient was seen, as this information can be updated by other users. Medical History Generalized anxiety disorder continue effexor 75 mg daily History of ganglion cyst Presence of intrathecal pump GERD (gastroesophageal reflux disease) Diabetes HLD (hyperlipidemia) HTN (hypertension) Hiatal hernia Impacted cerumen of right ear Dysphagia Otalgia, right ear Tongue pain Surgical History History of ankle surgery History of removal of retained hardware History of lumbar surgery History of shoulder surgery History of hip replacement History of bilateral breast reduction surgery History of knee replacement History of History of cholecystectomy History of tubal ligation History of hysterectomy Hx of appendectomy Family History Other Family history of cancer Family history of cirrhosis of liver Family history of heart disease Family history of polio Family history of thyroid disease Unknown family medical history Social History Smoking Status: Never smoker second hand exposure: No alcohol intake: never substance use type: denies use current occupational status: other Travel in the last 8 weeks?: None household members: other housing: house current occupational exposures/hazards: No caffeine: Yes Other Medical History Have you received the Flu Vaccine for this season: No Have you received the Pneumonia Vaccine: No Review of Systems Review of Systems Review of systems:: pertinent systems reviewed and negative unless documented below Review of systems (narrative): Review of Systems: General: No recent weight changes, no fever, no sleep disturbances Respiratory: No cough, no shortness of air, no recurring pulmonary infections Cardiovascular/peripheral vascular: No chest pain, no palpitations, no edema, no shortness of breath Gastrointestinal: No new onset incontinence, normal bowel movements reported Genitourinary: No new onset incontinence Musculoskeletal: Chronic back pain Psychiatric: [Normal mood/affect] Neurological: [Denies weakness in extremities], [denies balance issues] Meds Home Medications and Allergies Home Medications ?Medication ?Instructions ?Recorded ?Confirmed ?Type albuterol sulfate 90 mcg/actuation 1 dose inhalation NEEDED PRN soa 05/03/17 09/18/24 History aerosol inhaler atenolol 25 mg tablet 25 mg PO DAILY Hypertension 05/03/17 09/18/24 History conjugated estrogens 0.625 mg/gram 30 g vaginal WEEKLY hormones 05/03/17 09/18/24 History vaginal cream fenofibrate nanocrystallized 145 145 mg PO DAILY Cholesterol 05/03/17 09/18/24 History mg tablet omeprazole 40 mg capsule,delayed 40 mg PO DAILY GERD 05/03/17 09/18/24 History release potassium chloride 20 mEq oral 20 meq PO BID Supplement 05/03/17 09/18/24 History packet simvastatin 20 mg tablet 20 mg PO DAILY Cholesterol 05/03/17 09/18/24 History baclofen 10 mg tablet 10 mg PO DAILY Pain 11/26/22 09/18/24 History ferrous sulfate 325 mg (65 mg 325 mg PO DAILY SUPPLIMENT 11/26/22 09/18/24 History iron) tablet (FeroSul) fluticasone propionate 50 50 mcg intranasal DIRECTED 11/26/22 09/18/24 History mcg/actuation nasal spray,suspension icosapent ethyl 1 gram capsule 1 g PO DIRECTED . 11/26/22 09/18/24 History irbesartan 300 mg tablet 300 mg PO DAILY BLOOD PRESSURE 11/26/22 09/18/24 History metformin 500 mg tablet 500 mg PO BID Diabetes 11/26/22 09/18/24 History montelukast 10 mg tablet 10 mg PO DAILY ALLERGIES 11/26/22 09/18/24 History nifedipine 30 mg tablet,extended 30 mg PO DAILY BLOOD PRESSURE 11/26/22 09/18/24 History release 24 hr pregabalin 200 mg capsule 200 mg PO BID Pain 11/26/22 09/18/24 History sulfamethoxazole 800 1 tab PO BID 7 days #14 tabs 11/22/23 09/18/24 Rx mg-trimethoprim 160 mg tablet (Bactrim DS) lidocaine 5 % topical patch 1 patch topical DAILY #30 ea 05/08/24 09/18/24 Rx venlafaxine 75 mg capsule,extended 75 mg PO DAILY #30 caps 08/07/24 09/18/24 Rx release 24 hr (Effexor XR) hydroxyzine HCl 10 mg tablet 10 mg PO HS #30 tabs 08/21/24 09/18/24 Rx New Prescriptions to Start Prescriptions: Allergies Allergy/AdvReac Type Severity Reaction Status Date / Time shellfish derived Allergy Severe LIPS Verified 08/20/24 14:00 SWELLING Iodinated Contrast Media Allergy Unknown I-HIVES Verified 08/20/24 14:00 (IODINATED CONTRAST- ORAL AND IV DYE) Exam Data for Last 24 hours Vital signs and Labs for Last 24 Hours: Pulse Resp BP Pulse Ox O2 Del Method 83 18 124/70 94 L Room Air 09/18/24 11:27 09/18/24 11:27 09/18/24 11:27 09/18/24 11:27 09/18/24 11:27 I & O for Last 24 hours: Intake & Output 09/15/24 09/16/24 09/17/24 09/18/24 23:59 23:59 23:59 23:59 Weight 175 lb Constitutional Constitutional: no acute distress *Routine HEENT Exam Head: Present normocephalic and atraumatic Eye: Present PERRL ENT: Present mucous membranes moist *Routine Neck Exam Neck: Present supple *Routine Respiratory Exam Respiratory: Present CTA bilaterally *Routine Cardiovascular Exam Cardiovascular: Present RRR *Routine Abdominal Exam Abdominal: Present soft *Routine Rectal Exam Rectal:: deferred *Routine Genitalia Exam Genitalia:: deferred Routine Back/Spine/Pelvis Exam Back/Spine: Present pain with flexion *Routine Skin Exam Skin: Present intact *Routine Neurological Exam Neurological: Present alert and oriented X3 Routine Psychiatric Exam Psychiatric: Present normal affect and normal thought process Assessment and Plan *Assessment and plan (1) Degenerative disc disease: Status: Acute Category: Medical (2) Left knee pain: Status: Acute Category: Medical Code(s): M25.562 - Pain in left knee Plan Patient has been instructed to contact the clinic with any concerns before the next appointment. Dr. Lockhart has reviewed this note and agrees with this plan of care. This note was dictated using voice recognition software and make contain errors or omissions. All injections are used with Lidocaine, Bupivacaine and dexamethasone. Occasionally urine drug screen is needed to verify patient's compliance with our office pain contract. This is ordered based off specific treatments related to chronic pain with the potential to abuse certain medications.
--- NOTE | 2024-09-18 11:42 | P.PCN_ITS ---
Procedure Date: 09/18/24 Time: 11:42 Anesthesiologist:: Jacquie Osborn APRN Complications:: None Pre-procedure Diagnosis:: Degenerative disc disease of lumbar spine with lumbar radiculopathy symptoms, chronic knee pain, chronic pain syndrome Post-procedure Diagnosis:: Same Indications for Procedure:: Patient is a pleasant 84-year-old female who presents today for intrathecal refill and reprogram. She rates her pain today as 7 out of 10. Patient is still having pain with her knee and does have an appointment scheduled with our office for an injection on the . Patient is scheduled to go back to [place] later this afternoon and states that she is having trouble with her CPAP and may have to be ended up going through another sleep study and get changed to a BiPAP. Patient states that she is unsure if she will be back from [place] in time for this injection but will let us know. Patient is currently managed with Dilaudid 2 mg/mL with a daily dose of 0.3065 mg/day. She denies any side effects. She is asking if we can make a small adjustment. Her Bradley has been reviewed and is appropriate. Physical Exam: General: Alert and oriented x3, no acute distress, pleasant and cooperative Lungs: Respirations even and unlabored, symmetrical chest expansion Eyes: PERRL Musculoskeletal: Flexion and extension of lumbar [spine] somewhat guarded secondary to pain, [antalgic gait noted] Neurological: Speech clear, no gross sensory deficit Procedure Details:: Informed consent was obtained and the risk and benefits of the procedure were explained to the patient. The patient had noninvasive monitoring placed including noninvasive blood pressure cuff and pulse oximeter. Patient's pump was interrogated. The area over the pump was cleansed with chlorhexidine as a cleansing solution. In sterile fashion the pump was accessed with a 22-gauge needle. Approximately 6 mls of the pump solution was removed and discarded appropriately. The pump was then refilled with 20 mL's of Dilaudid 2 mg/mL. The needle was withdrawn and a bandage was placed over the puncture site. The infusion rate was reprogrammed and increased to Dilaudid 0.3376 mg/day. The patient tolerated well with no complication. Plan and Disposition:: Patient tolerated the procedure well with no complications and was discharged neurologically intact. Patient will return to clinic on or before their next intrathecal refill date. We will see the patient back in the clinic at the next intrathecal refill. Patient has been instructed to contact the clinic with any concerns before the next appointment. Dr. Lockhart has reviewed this note and agrees with this plan of care. This note was dictated using voice recognition software and make contain errors or omissions. -- It Is medically necessary for this patient to continue to have their intrathecal pump refilled at regular intervals. This patient had an intrathecal pain pump implanted after meeting criteria of chronic intractable pain for greater than 3 months and failing conservative treatments. Patient has committed and been compliant to the treatment plan and all planned follow up care. Since implantation of the intrathecal pain pump, the patient has had decreased pain and been more functional. Oral medications have been reduced including intake of oral opioids. Patient continues to do well with intrathecal therapy with decrease in pain symptoms and increase in functional status. Stopping intrathecal medications can lead to life threatening withdrawal, seizures, cardiac arrest, severe pain, and possible . Pumps that are not refilled at regular intervals can be damages and cause and need for replacement. We continually titrate dose and concentration to optimize pain relief and function. We are limited in concentration for certain drugs to safely deliver medications through the pump and stay within the recommendations from the [employer] Consensus Committee Guidelines. Depending on dose and concentration these pumps may need to be refilled sooner than 3 months as we titrate. A UDS is needed to verify patient's compliance with our office pain contract. This is ordered based off specific treatments related to chronic pain with the potential to abuse certain medications.
[2024-09-18 11:43] VITALS: BP 125/68; PULSE 76; RESP 16; O2SAT 93
== END 2024-09-18 11:43 | disposition home or self-care (01) ==
PROVIDERS: PCP Family Medicine; Visit Provider Nurse Practitioner Family
DX: Z45.1 Encounter for adjustment and management of infusion pump (principal); G89.29 Other chronic pain; M25.562 Pain in left knee; M51.16 Intervertebral disc disorders with radiculopathy, lumbar region; I10 Essential (primary) hypertension; E78.5 Hyperlipidemia, unspecified; K21.9 Gastro-esophageal reflux disease without esophagitis; E11.9 Type 2 diabetes mellitus without complications; F41.1 Generalized anxiety disorder; Z79.84 Long term (current) use of oral hypoglycemic drugs; Z79.899 Other long term (current) drug therapy; Z91.041 Radiographic dye allergy status; Z91.013 Allergy to seafood
CPT/HCPCS: 62370

== ENCOUNTER 2024-12-14 11:51 | Outpatient (CLI) | payer MEDICARE, BC, SELFPAY ==
--- OUTSIDE RECORDS SUMMARY | 2024-12-14 11:54 | XMS_ITS | Clinical Summary ---
Author Organization [facility] Address [address] [place] [id number] Care Team Providers Care Agriculture Professor Name Role Phone Unavailable Primary Care Provider [...] therelease of HIV test results or diagnoses. [id number] Social History Tobacco Use Types Packs/Day Years Used Date Smoking Tobacco: Never Assessed Comments Unknown Sex and Gender Information Value Date Recorded Sex Assigned at Not on file Legal Sex Female 11:18 PM EST Gender Identity Not on file Sexual Orientation Not on file Plan of Treatment Not on file
--- OUTSIDE RECORDS SUMMARY | 2024-12-14 11:54 | XMS_ITS | Clinical Summary ---
Author Organization [facility] Address [address] [place] [address] Care Team Providers Care Layout Inspector Name Role Phone Jordan Johnson MD Primary Care Provider [phone] Allergies Active Allergy Reactions Criticality Noted Date Comments Iodinated Contrast Media Hives Medium 07/22/2020 Iodine Hives Medium 04/16/2019 Shellfish-Derived Products 1 States had a strange sensation - mild tingling and difficult to explain , in mouth after eating shrimp. Medications ascorbic acid (VITAMIN C) 500 MG tablet Take 500 mg by mouth daily . 1 Active aspirin 81 MG chewable tablet Chew 81 mg by mouth daily . Active atenolol (TENORMIN) 25 MG tablet Take 25 mg by mouth daily . 1 Active Cholecalciferol 50 MCG (2000 UT) CAPS Take 2,000 Units by mouth daily. Active cyanocobalamin 1000 MCG tablet Take 1,000 mcg by mouth every other day . Active conjugated estrogens (PREMARIN) vaginal cream Place 0.5 g vaginally twice a week . 1 Active fenofibrate (TRICOR) 145 MG tablet Take 145 mg by mouth daily . 1 Active ferrous gluconate (FERGON) 324 MG tablet Take 324 mg by mouth daily with breakfast . 0 Active irbesartan (AVAPRO) 300 MG tablet Take 300 mg by mouth daily . 1 Active metFORMIN (GLUCOPHAGE) 500 MG tablet Take 500 mg by mouth 2 (two) times daily with meals . 1 Active NIFEdipine (ADALAT CC) 30 MG 24 hr tablet Take 30 mg by mouth daily . 1 Active omeprazole (PRILOSEC) 40 MG capsule Take 40 mg by mouth daily. 1 Active polyethylene glycol (GLYCOLAX) 17 GM/SCOOP powder Take 17 g by mouth as needed . Active pregabalin (LYRICA) 150 MG capsule Take 150 mg by mouth 2 (two) times daily . 1 Active QUEtiapine (SEROQUEL) 100 MG tablet Take 100 mg by mouth nightly . 1 Active sertraline (ZOLOFT) 100 MG tablet Take 200 mg by mouth daily . 1 Active simvastatin (ZOCOR) 20 MG tablet Take 20 mg by mouth nightly . 1 Active vitamin E 100 UNIT capsule Take 100 Units by mouth daily . Active Multiple Vitamins-Minerals (ZINC PO) Take by mouth daily . Active Blood Pressure Monitoring (OMRON 5 SERIES BP MONITOR) DEVICE 1 Active sodium chloride 0.9 % SOLN with HYDROmorphone PF 10 MG/ML SOLN 20 mcg/mL Infuse 0.136 mg/hr into the vein continuous Via continuous pain pump 0.1360/mg/day Concentration: 2.000mg/ml . Active senna-docusate (PERICOLACE) 8.6-50 MG Take 2 tablets by mouth 2 (two) times daily. 40 tablet 3 2 Active hydroCHLOROthiazi de (HYDRODIURIL) 12.5 MG tablet 1 Active nitrofurantoin, macrocrystal-mono hydrate, (MACROBID) 100 MG capsule TAKE 1 CAPSULE BY MOUTH TWICE DAILY FOR 5 DAYS 2 Active ondansetron (ZOFRAN) 4 MG tablet TAKE 1 TABLET BY MOUTH EVERY 8 HOURS NEEDED 2 Active potassium chloride (MICRO-K) 10 MEQ CR capsule TAKE 1 CAPSULE BY MOUTH TWICE DAILY 2 Active sucralfate (CARAFATE) 1 g tablet Take 1 g by mouth. 1 Active HYDROcodone-aceta minophen (NORCO) 5-325 MG per tablet Take 1 tablet by mouth. 1 Active oxyCODONE-acetami nophen (PERCOCET) 7.5-325 MG Take 1 tablet by mouth. 1 Active baclofen (LIORESAL) 10 MG tabletIndications :S/P spinal fusion Take 1 tablet by mouth 3 (three) times daily. 90 tablet 3 2 Active baclofen (LIORESAL) 10 MG tablet Take 10 mg by mouth. 2 Active FEROSUL 325 (65 Fe) MG tablet Take by mouth daily. 3 Active VASCEPA 1 g capsule TAKE 2 CAPSULES BY MOUTH TWICE DAILY FOR 90 DAYS 2 Active montelukast (SINGULAIR) 10 MG tablet Take 10 mg by mouth daily as needed. 3 Active NIFEdipine (PROCARDIA XL) 30 MG 24 hr tablet TAKE 1 BY MOUTH TWICE DAILY 3 Active fluticasone (FLONASE) 50 MCG/ACT nasal spray USE 1 SPRAY(S) IN EACH NOSTRIL DIRECTED ONCE DAILY 3 Active pregabalin (LYRICA) 200 MG capsule Take 200 mg by mouth 2 (two) times daily. 3 Active Active Problems Problem Noted Date Diagnosed Date Cervical myelopathy 05/10/2022 Spinal stenosis of lumbar re gion with neurogenic claudication 03/17/2021 Spinal stenosis 03/15/2021 Pseudoarthrosis of lumbar spine 02/16/2021 Neurogenic claudication due to lumbar spinal gonzales nosis 02/16/2021 S/P lumbar fusion 01/26/2021 Sagittal plane imbalance 01/26/2021 Family History Medical History Relation Comments Thyroid disease Brother Thyroid disease Father Cancer, Other or Unknown Type Mother Cancer, Other or Unknown Type Sister Thyroid disease Sister Relation Status Comments Brother Father Mother Sister Social History Tobacco Use Types Packs/Day Years Used Date Smoking Tobacco: Never Smokeless Tobacco: Never Tobacco Cessation:Counseling Given: Not Answered Alcohol Use Standard Drinks/Week Comments Not Currently 0 (1 standard drink = 0.6 oz pur e alcohol) Comments No Sex and Gender Information Value Date Recorded Sex Assigned at Female 10/03/2022 2:47 PM EDT Legal Sex Female 12:58 PM EDT Gender Identity Female 10/03/2022 2:47 PM EDT Sexual Orientation Not on file Last Filed Vital Signs Vital Sign Reading Time Taken Comments Blood Pressure 120/72 10/18/2022 11:51 AM EDT Pulse 86 10/18/2022 11:51 AM EDT Temperature 37.1 C (98.7 F) 03/29/2021 7:05 AM EST Respiratory Rate 16 03/29/2021 7:05 AM EST Oxygen Saturation 95% 10/18/2022 11:51 AM EDT Inhaled Oxygen Concentration - - Weight 80.3 kg (177 lb) 10/18/2022 11:51 AM EDT Height 152.4 cm (5') 10/18/2022 11:51 AM EDT Body Mass Index 34.57 10/18/2022 11:51 AM EDT Plan of Treatment Health Maintenance Due Date Last Done Comments Tdap/Td Vaccine >11 yo (1 - Tdap) 11/29/2006 11/28/2006 Osteoporosis Screening 05/25/2007 RSV 50+ and (1 - 1-dose 75+ series) 2017 Pneumococcal Vaccines >50 yo (2 of 2 - PCV) 09/03/2018 09/03/2017, 12/06/2008 Annual SDOH Screening 03/11/2024 Medicare Advantage Annual Wellness Visit (AWV) 03/11/2024 PAF (Practitioner Assessment Form) 03/11/2024 Influenza Vaccine (#1) 2024 0, 12/15/2018, 12/24/2017, Additional history exists Hepatitis A (HepA) Vaccine Aged Out 12/01/2008, No longer eligible based on patient's age to complete this topic Shingles (Shingrix) Completed 07/28/2018, 9 Haemophilus Influenzae Type B (Hib) Vaccine Aged Out No longer eligible based on patient's age to complete this topic Hepatitis B (HepB) Vaccine Aged Out N o longer eligible based on patient's age to complete this topic Meningococcal ACWY Aged Out No longer eligible based on patient's age to complete this topic Polio (IPV) Aged Out No longer eligi ble based on patient's age to complete this topic Rotavirus (RV) Vaccine Aged Out No lo nger eligible based on patient's age to complete this topic Medical Devices Implanted Type Area Vice President Process Device Identifier Shelf Expiration Date Model / Serial / Lot Graft Bone I-Factor 5ml [id number] - [id number] Implanted:Qty: 1 on 03/15/2021 by Mario Boyle MD at [facility] BMP N/A: Spine Lumbar [employer] 08/09/2023 [id number] / / [id number] Graft Bone I-Factor 1ml [id number] - [id number] Implanted:Qty: 1 on 03/15/2021 by Mario Boyle MD at [facility] BMP N/A: Spine Lumbar [employer] 10/09/2023 [id number] / / [id number] Graft Bone Infuse L Ii [id number] - [id number] Implanted:Qty: 1 on 03/17/2021 by Mario Boyle MD at [facility] BMP [employer]TR[employer]IC SOFAMOR DANEK 06/08/2022 [id number] / / [id number] Cage 22x45 [id number] 2g2 - [id number] Implanted:Qty: 1 on 03/15/2021 by Mario Boyle MD at [facility] Cages N/A: Spine Lumbar ILEANA SPINE 10/24/2024 [id number] / / [id number] Cag 13f01y45 [id number] 2g2 - [id number] Implanted:Qty: 1 on 03/15/2021 by Mario Boyle MD at [facility] Cages N/A: Spine Lumbar [employer] 03/29/2024 [id number] 12G2 / / [id number] Connector Lat 5.5x 25 [id number] - [id number] Implanted:Qty: 3 on 03/17/2021 by Mario Boyle MD at [facility] Connectors [employer] SOF[employer] [id number] / / Connector Set Screw [id number] - [id number] Implanted:Qty: 3 on 03/17/2021 by Mario Boyle MD at [facility] Connectors [employer] [id number] / / Graft Canc Chip 30 [id number] - [id number] Implanted:Qty: 1 on 03/17/2021 by Mario Boyle MD at [facility] Grafts [employer] SPINAL GRAFT TECH 05/11/2025 [id number] / [id number] / [id number] Graft Canc Chip 30 [id number] - [id number] Implanted:Qty: 1 on 03/17/2021 by Mario Boyle MD at [facility] Grafts [employer] SPINAL GRAFT TECH 05/13/2025 [id number] / [id number] / [id number] Graft Canc Chip 30 [id number] - [id number] Implanted:Qty: 1 on 03/17/2021 by Mario Boyle MD at [facility] Grafts [employer] SPINAL GRAFT TECH 05/12/2025 [id number] / [id number] / [id number] Graft Canc Chip 30 [id number] - [id number] Implanted:Qty: 1 on 03/17/2021 by Mario Boyle MD at [facility] Grafts [employer] SPINAL GRAFT TECH 05/03/2025 [id number] / [id number] / [id number] Kit Sealant Surgiflo Mtrx 2994 - [id number] Implanted:Qty: 1 on 03/17/2021 by Mario Boyle MD at [facility] OTHER - IMPLANTS - OTHER J 08/08/2022 2994 / / [id number] Kit Sealant Surgiflo Mtrx 2994 - [id number] Implanted:Qty: 4 on 03/17/2021 by Mario Boyle MD at [facility] OTHER - IMPLANTS - OTHER J 07/08/2022 2994 / / [id number] Sealant [id number] - [id number] Implanted:Qty: 1 on 03/17/2021 by Mario Boyle MD at [facility] OTHER - IMPLANTS - OTHER SALGADO 10/28/2022 [id number] / / [id number] John 5.5 Ti Alloy [id number] - [id number] Implanted:Qty: 2 on 03/17/2021 by Mario Boyle MD at [facility] Rods [employer] SO[employer] [id number] / / Screw Solra 5.5x40 [id number] - [id number] Implanted:Qty: 5 on 03/17/2021 by Mario Boyle MD at [facility] Screws [employer] SO[employer] [id number] / / Screw Solra 5.5x45 [id number] - [id number] Implanted:Qty: 5 on 03/17/2021 by Mario Boyle MD at [facility] Screws [employer] [id number] / / Screw Solra 7.5x40 [id number] - [id number] Implanted:Qty: 2 on 03/17/2021 by Mario Boyle MD at [facility] Screws [employer] [id number] / / Screw Solra 7.5x45 [id number] - [id number] Implanted:Qty: 4 on 03/17/2021 by Mario Boyle MD at [facility] Screws [employer] [id number] / / Screw Set Solra 5.5 [id number] - [id number] Implanted:Qty: 18 on 03/17/2021 by Mario Boyle MD at [facility] Screws [employer] [id number] / / Screw Bal 8.5x80m [id number] - [id number] Implanted:Qty: 2 on 03/17/2021 by Mario Boyle MD at [facility] Screws [employer] SO[employer] [id number] / / Shunt Spetzler Lumar [id number] - [id number] Implanted:Qty: 1 on 03/17/2021 by Dex Phillips MD at [facility] Shunts WERO ASTON 09/08/2023 [id number] / / [id number] Insurance [employer] MEDICARE REPLACEMENT Advance Directives Documents on File Type Date Recorded Patient Fruit Culler Expl anation Living Will 03/15/2021 8:42 AM Living Will * Full Code (Latest Code Status on File) Date Activated Date Inactivated Comments 03/17/2021 6:24 PM 03/29/2021 9:24 PM * Full Code Date Activated Date Inactivated Comments 03/15/2021 5:10 PM 03/17/2021 6:24 PM Care Teams Layout Inspector Relationship Specialty Start Date End Date Jordan Johnson MD [facility] [address] [place] [address] PCP - General Family Medicine 02/16/21
--- OUTSIDE RECORDS SUMMARY | 2024-12-14 11:54 | XMS_ITS | Clinical Summary ---
Author Organization [facility] Address [address] [place] [address] Care Team Providers Care Simulation Educator Name Role Phone Jordan Johnson MD Primary Care Provider + [phone] Allergies Active Allergy Reactions Criticality Noted Date Comments Contrast Dye (Echo Or Unknown Ct/Mr) Hives Medium 07/22/2020 Iodinated Contrast Media Hives High 04/11/2011 Iodine Hives Medium 07/22/2020 Povidone Iodine Hives High 04/11/2011 Shellfish-Derived Products Swelling States had a strange sensation - mild tingling and difficult to explain , in mouth after eating shrimp. States had a strange sensation - mild tingling and difficult to explain , in mouth after eating shrimp. Medications metFORMIN (GLUCOPHAGE) 500 MG tablet Take 1 tablet by mouth 2 (Two) Times a Day. 04/23/2020 Active irbesartan (AVAPRO) 300 MG tablet Take 1 tablet by mouth Daily. 04/30/2020 Active Vascepa 1 g capsule capsule Take 2 g by mouth 2 (Two) Times a Day. 05/16/2020 Active montelukast (SINGULAIR) 10 MG tablet Take 1 tablet by mouth Daily. 05/10/2020 Active omeprazole (priLOSEC) 40 MG capsule Take 1 capsule by mouth Daily. 05/10/2020 Active sertraline (ZOLOFT) 100 MG tablet 06/17/2020 Active fenofibrate (TRICOR) 145 MG tablet Take 1 tablet by mouth Daily. 06/17/2020 Active NIFEdipine CC (ADALAT CC) 30 MG 24 hr tablet TAKE 1 TABLET BY MOUTH ONCE DAILY ON AN EMPTY STOMACH FOR 30 DAYS 07/02/2020 Active ASPIRIN 81 PO Take 1 tablet by mouth Daily. Active vitamin E 400 UNIT capsule Take 1 capsule by mouth Daily. Active Glucosamine-Cho ndroitin (GLUCOSAMINE CHONDR COMPLEX PO) Take by mouth. Active Cholecalciferol (Vitamin D3) 50 MCG (2000 UT) capsule Take 1 capsule by mouth Daily. Active ferrous sulfate 325 (65 FE) MG tablet Take 1 tablet by mouth Daily With Breakfast. Active atorvastatin (LIPITOR) 20 MG tablet Take 1 tablet by mouth Daily. Active baclofen (LIORESAL) 10 MG tablet Take 1 tablet by mouth 3 times a day. 12/04/2023 Active Prolia 60 MG/ML solution prefilled syringe syringe 01/24/2024 Act jessi fluticasone (FLONASE) 50 MCG/ACT nasal spray 1 spray by Each Nare route Daily. 10/04/2023 Active furosemide (LASIX) 20 MG tablet Take 1 tablet by mouth Daily. 01/23/2024 Active atenolol (TENORMIN) 25 MG tablet Take 1 tablet by mouth Daily. 12/27/2023 Active cyanocobalamin (VITAMIN B-12) 1000 MCG tablet Take 1 tablet by mouth. Active potassium chloride (MICRO-K) 10 MEQ CR capsule Take 1 capsule by mouth Every 12 (Twelve) Hours. 01/03/2024 Active pregabalin (LYRICA) 200 MG capsule Take 1 capsule by mouth Every 12 (Twelve) Hours. 11/08/2023 Active empagliflozin (JARDIANCE) 10 MG tablet tablet Take 1 tablet by mouth Daily. 30 tablet 5 06/24/2024 Active venlafaxine XR (EFFEXOR-XR) 75 MG 24 hr capsule Take 1 capsule by mouth Daily. 06/03/2024 Active Active Problems Problem Noted Date Diagnosed Date Lumbar stenosis with neurogenic claudication Family History Medical History Relation Name Comments Arthritis Brother Reza Cancer Brother Reza Heart disease Brother Reza Arthritis Father Cancer Father Cirrhosis Father Cancer Mother Heart disease Mother Liver disease Mother Arthritis Sister 1 Karin Cancer Sister 1 Karin Heart disease Sister 1 Karin Cancer Sister 2 Glaucoma Sister 3 Osteoporosis Sister 3 Thyroid disease Sister 3 Osteoporosis Sister 4 Thyroid disease Sister 4 Osteoporosis Sister 5 Kidney disease Son Relation Name Status Comments Brother Reza Father Mother Sister 1 Karin Alive Sister 2 Sister 3 Alive Sister 4 Alive Sister 5 Alive Son Social History Tobacco Use Types Packs/Day Years Used Date Smoking Tobacco: Never Passive Smoke Exposure: Past Smokeless Tobacco: Never Tobacco Cessation:Counseling Given: Not Answered Alcohol Use Standard Drinks/Week Comments Never 0 (1 standard drink = 0.6 oz pur e alcohol) AUDIT-C Answer Date Recorded Q1: How often do you have a drink containing alc ohol? Never 07/22/2020 Average Number of Drinks Not on file 021 Frequency of Binge Drinking Not on file 07/09 Comments Unknown Sex and Gender Information Value Date Recorded Sex Assigned at Not on file Legal Sex Female 11:46 AM EDT Gender Identity Not on file Sexual Orientation Not on file Last Filed Vital Signs Vital Sign Reading Time Taken Comments Blood Pressure 132/70 07/01/2024 3:54 PM EDT Pulse 71 07/01/2024 3:54 PM EDT Temperature 36.5 C (97.7 F) 08/16/2020 6:24 AM EDT Respiratory Rate 18 08/16/2020 8:49 AM EDT Oxygen Saturation 92% 07/01/2024 3:54 PM EDT Inhaled Oxygen Concentration - - Weight 81.2 kg (179 lb) 07/01/2024 3:54 PM EDT Height 152.4 cm (5') 07/01/2024 3:54 PM EDT Body Mass Index 34.96 07/01/2024 3:54 PM EDT Plan of Treatment Upcoming Encounters Date Type Department Care Team (Late st Contact Info) Description 01/13/2025 1:45 PM EST Office Visit [facility] [address] [facility] [address] [place] [address] Dex Avendano MD [address] [place] [address] Health Maintenance Due Date Last Done Comments DXA SCAN 1940 DIABETIC EYE EXAM 1952 DIABETIC FOOT EXAM 1952 URINE MICROALBUMIN-CREATININ E RATIO (uACR) 1950 TDAP/TD VACCINES (2 - Tdap) 11/28/2016 11/28/2006 RSV Vaccine - Adults (1 - 1- dose 75+ series) 2017 ANNUAL WELLNESS VISIT 07/22/2020 HEMOGLOBIN A1C 06/15/2022 12/15/2021, 01/0 08/2021, 12/05/2020, Additional history exists INFLUENZA VACCINE 10/09/2024 12/01/2019, , 12/24/2017, Additional history exists COVID-19 Vaccine (1 - 2023-2 5 season) 2024 Pneumococcal Vaccine 50+ Completed 018, 12/12/2015, 12/06/2008 ZOSTER VACCINE Completed 07/28/2018, 05/10/[address] [place] [address] [address] [email or web address] PPO Care Teams Simulation Educator Relationship Specialty Start Date End Date Jordan Johnson MD [address] [facility] [address] [place], [place] [id number] PCP - General Family Medicine 06/22/20
--- OUTSIDE RECORDS SUMMARY | 2024-12-14 11:54 | XMS_ITS | Clinical Summary ---
Author Organization [facility] Address [address] [place] [address] Care Team Providers Care Sales Order Specialist Name Role Phone Jordan Johnson MD Primary Care Provider + [phone] Vasiliy Gonzalez MD Unavailable Mateus Marquez MD Unavailable [phone] Allergies Active Allergy Reactions Criticality Noted Date Comments Contrast Dye Hives Medium 07/22/2020 Iodinated Contrast Media Hives Medium 07/22/2020 Iodine Hives Medium 04/16/2019 Shellfish-Derived Products 1 States had a strange sensation - mild tingling and difficult to explain , in mouth after eating shrimp. Medications NIFEdipine CC (Adalat CC) 30 MG 24 hr tablet Take 30 mg by mouth 2 (two) times a day. 08/07/2020 Active atenolol (Tenormin) 25 MG tablet Take 25 mg by mouth 1 (one) time each day. 08/05/2020 Active irbesartan (Avapro) 300 MG tablet TAKE 1 TABLET BY MOUTH ONCE DAILY FOR 90 DAYS 07/30/2020 Active aspirin 81 MG chewable tablet Chew 81 mg. Ac tive fenofibrate micronized (Lofibra) 134 MG capsule Take 134 mg by mouth. Active ferrous gluconate (Fergon) 324 (38 Fe) MG tablet Take 1 tablet by mouth 1 (one) time each day. 01/12/2020 Active metFORMIN (Glucophage) 500 MG tablet Take 500 mg by mouth 2 (two) times a day. 07/30/2020 Active omeprazole (PriLOSEC) [address] capsule Take 40 mg by mouth 1 (one) time each day. 08/03/2020 Active pregabalin (Lyrica) 150 MG capsule Take 150 mg by mouth 2 (two) times a day. 06/20/2020 Active sertraline (Zoloft) 100 MG tablet 06/17/2020 Active simvastatin (Zocor) 20 MG tablet TAKE 1 TABLET BY MOUTH ONCE DAILY AT BEDTIME FOR 90 DAYS 07/30/2020 Active hydroCHLOROthia zide (HYDRODiuril) 12.5 MG tablet 04/19/2020 Acti ve magnesium hydroxide (Milk of Magnesia) 400 MG/5ML suspension Take by mouth. Active Vascepa 1 g capsule Take 2 capsules by mouth 2 (two) times a day. 05/16/2020 Active ferrous sulfate 325 (65 Fe) MG tablet Take 325 mg by mouth 1 (one) time each day. Active cyanocobalamin (Vitamin B-12) 1000 MCG tablet Take 1,000 mcg by mouth 1 (one) time each day. Active Cholecalciferol 50 MCG (2000 UT) capsule Take 2,000 Units by mouth 1 (one) time each day. Active montelukast (Singulair) 10 MG tablet TAKE 1 TABLET BY MOUTH ONCE DAILY FOR 90 DAYS 05/10/2020 Active potassium chloride (Klor-Con) 20 MEQ packet Take 20 mEq by mouth. Active sucralfate (Carafate) 1 g tablet Take 1 g by mouth 3 (three) times a day. 06/21/2020 Active alpha tocopherol (Vitamin E) 100 units capsule Take 100 Units by mouth. Active alpha tocopherol (Vitamin E) 400 units capsule Take 400 Units by mouth 1 (one) time each day. Active HYDROmorphone HCl (DILAUDID IJ) Inject as directed. Active QUEtiapine (SEROquel) 100 MG tablet Take 100 mg by mouth every night. Active HYDROcodone-magy taminophen (Norris) 5-325 MG tablet Take 1 tablet by mouth 3 (three) times a day if needed for severe pain. 21 tablet 01/11/2021 Active aspirin 81 MG chewable tablet Chew 81 mg 1 (one) time each day. Active baclofen (Lioresal) 10 MG tablet Take 10 mg by mouth 3 times a day. 08/13/2021 Active Blood Pressure Monitoring (Omron 5 Series BP Monitor) device 02/14/2021 Active cefdinir (Omnicef) 300 MG capsule TAKE 1 CAPSULE BY MOUTH TWICE DAILY FOR 10 DAYS 05/12/2021 Active fenofibrate (Tricor) 145 MG tablet 10/20/2021 Active fluticasone (Flonase) 50 MCG/ACT nasal spray USE 1 SPRAY(S) IN EACH NOSTRIL DIRECTED ONCE DAILY 06/28/2021 Active metFORMIN (Glucophage) 500 MG tablet Take 500 mg by mouth 2 (two) times a day. 12/05/2020 Active nitrofurantoin, macrocrystal-mo nohydrate, (Macrobid) 100 MG capsule TAKE 1 CAPSULE BY MOUTH TWICE DAILY FOR 5 DAYS 04/04/2021 Active ondansetron (Zofran) 4 MG tablet Take 1 tablet by mouth every 8 (eight) hours if needed. 04/12/2021 Active Active Problems No known active problems Social History Tobacco Use Types Packs/Day Years Used Date Smoking Tobacco: Never Smokeless Tobacco: Never Tobacco Cessation:Counseling Given: Not Answered Comments Unknown Sex and Gender Information Value Date Recorded Sex Assigned at Not on file Legal Sex Female 2:21 PM EDT Gender Identity Not on file Sexual Orientation Not on file Last Filed Vital Signs Vital Sign Reading Time Taken Comments Blood Pressure - - Pulse - - Temperature - - Respiratory Rate - - Oxygen Saturation - - Inhaled Oxygen Concentration - - Weight 80.3 kg (177 lb) 10/04/2022 9:47 AM EDT Height 152.4 cm (5') 10/04/2022 9:47 AM EDT Body Mass Index 34.57 10/04/2022 9:47 AM EDT Plan of Treatment Health Maintenance Due Date Last Done Comments Bone Density Scan 1940 Lipid Panel 1940 Medicare Annual Wellness (AWV) 1940 Hepatitis B Screening 1960 DTaP/Tdap/Td Vaccines (1 - Tdap) 1961 Pneumococcal Vaccine: 50+ Years (1 of 1 - PCV) 1992 Zoster Vaccines (1 of 2) 1992 Depression Risk Screening 03/11/2024 Fall Risk Screening 03/11/2024 SDOH Screening 03/11/2024 COVID-19 Vaccine ( season) 2024 Influenza Vaccine (#1) 2024 0, 12/15/2018, 12/24/2017, Additional history exists HIB Vaccines Aged Out No longer eligi ble based on patient's age to complete this topic HPV Vaccines Aged Out No longer eligi ble based on patient's age to complete this topic Hepatitis A Vaccines Aged Out No long er eligible based on patient's age to complete this topic Hepatitis B Vaccines Aged Out No long er eligible based on patient's age to complete this topic IPV Vaccines Aged Out No longer eligi ble based on patient's age to complete this topic Meningococcal B Vaccine Aged Out No l onger eligible based on patient's age to complete this topic Meningococcal Vaccine Aged Out No breann chintan eligible based on patient's age to complete this topic Rotavirus Vaccines Aged Out No longer eligible based on patient's age to complete this topic Insurance [facility] MEDICARE ADVANTAGE [facility] Care Teams Sales Order Specialist Relationship Specialty Start Date End Date Jordan Johnson MD [address] [facility] [address] [place] [id number] PCP - General Family Medicine 07/04/20 [place] [address] [place] [address] Referring Physician Orthopaedic Surgery 10/23/21 Mateus Marquez MD [address] [place] [id number] Referring Physician Orthopaedic Surgery 10/31/21
[2024-12-14 14:25] LABS: Thyroid Stimulating Hormone 0.05 uIU/mL (0.465-4.68)
[2024-12-14 15:01] LABS: Vitamin B12 > 1000 pg/mL (239-931)
== END 2024-12-14 23:59 | disposition home or self-care (01) ==
LOC: LAB 11:52
PROVIDERS: PCP Family Medicine; Visit Provider Specialist
DX: R25.9 Unspecified abnormal involuntary movements (principal); R53.83 Other fatigue
CPT/HCPCS: 36415; 82607; 84443

== ENCOUNTER 2024-12-22 13:16 | Day surgery (SDC) | payer MEDICARE, BC, SELFPAY ==
[2024-12-22 13:33] VITALS: BP 112/52; PULSE 83; RESP 16; RESP 18; O2SAT 93; BMI 34.3
[2024-12-22] MEDS: DEXAMETHASONE 10MG/ML 1ML VIAL 10 MG (13:35)
[2024-12-22] MEDS: BUPIVACAINE 0.25% 10ML INJ 25 MG IJ (13:35)
[2024-12-22] MEDS: LIDOCAINE 1% 5ML PF VIAL 5 ML (13:35)
--- NOTE | 2024-12-22 13:39 | EXP.PAIN.PRO ---
Procedure Date: 12/22/24 Time: 13:25 Anesthesiologist:: Hector Castaneda CRNA Complications:: None Pre-procedure Diagnosis:: DJD left shoulder. Chronic left shoulder pain. Post-procedure Diagnosis:: Same. Indications for Procedure:: Patient is a very pleasant 84-year-old female who comes to clinic today for a left intra-articular shoulder injection of cortisone local anesthetic. Patient describes left shoulder pain as constant, dull, aching. She has 5/5 strength in the left arm. However, limited range of motion secondary to left shoulder pain. She rates her pain 9/10. Procedure Details:: Procedure Details: Left shoulder intra-articular injection Informed consent was obtained risk and benefits of the procedure were explained to the patient. Patient was taken to the procedure room. The Left shoulder was prepped using ChloraPrep. A 25-gauge needle was used posteriorly to inject 10 mL bupivacaine 0.25% and 10 mg of dexamethasone. Patient tolerated procedure well with no complications. Plan and Disposition:: Patient was discharged without incident.
[2024-12-22 13:44] VITALS: BP 105/63; PULSE 79; RESP 16; O2SAT 95
== END 2024-12-22 13:44 | disposition home or self-care (01) ==
PROVIDERS: PCP Family Medicine; Visit Provider Nurse Anesthetist, Certified Registered
DX: M19.012 Primary osteoarthritis, left shoulder (principal); G89.29 Other chronic pain; E11.9 Type 2 diabetes mellitus without complications; K21.9 Gastro-esophageal reflux disease without esophagitis; E78.5 Hyperlipidemia, unspecified; I10 Essential (primary) hypertension; F41.1 Generalized anxiety disorder; Z97.8 Presence of other specified devices; Z96.649 Presence of unspecified artificial hip joint; Z96.659 Presence of unspecified artificial knee joint; Z98.890 Other specified postprocedural states; Z91.013 Allergy to seafood; Z91.041 Radiographic dye allergy status; Z79.84 Long term (current) use of oral hypoglycemic drugs; Z79.899 Other long term (current) drug therapy
CPT/HCPCS: 20610; J0665; J1100; J2003

== ENCOUNTER 2025-01-20 09:14 | Outpatient (CLI) | payer MEDICARE, BC, SELFPAY ==
--- OUTSIDE RECORDS SUMMARY | 2023-12-04 08:50 | XMS_ITS ---
Author Organization [facility] Address [address] [place], [place] [id number] Care Team Providers Care Buzzsaw Operator Helper Name Role Phone Yordan Johnsonian Primary Care Provider [phone] Deanna Gricelda Unavailable [phone] Allergies Allergen (clinical drug ingredient) Drug/Non Drug Allergy documented on EMR Reaction Allergy Type Onset Date Status IVP DYE (uncoded) Unknown Allergy Ac tive Iodine Unknown Drug Allergy Active Results Component Value Reference Range Notes CBC Venipuncture (in house) Reviewed date:12/04/2023 03:36:06 PM Interpretation: Performing Lab: Notes/Report: wbc 4.8 3.5 - 10 lymph 22.7% 15 - 50 mid 6.2% 2 - 15 gran 71.1% 35 - 80 rbc 3.54 3.5 - 5.5 hgb 10.3 11.5 - 16.5 hct 30.9 35 - 55 mcv 87.4 75 - 100 mch 29.3 25 - 35 mchc 33.5 31 - 38 platlet 246 100 - 400 P-BNP (Brain Natriuretic Pep tide) Reviewed date:07/14/2024 03:47:13 PM Interpretation: Performing Lab: Notes/Report: P-Comprehensive Metabolic Pa katy (CMP) Reviewed date:12/05/2023 12:55:40 PM Interpretation: Performing Lab: Notes/Report: Test performed by [facility] [address] [place] [address] , [address], [place] [address] Satish Herrera MD, Woodworking Shop Laborer CLIA: [id number] Sodium 138 135-145 mmol/L Potassium 4.2 3.5-5.3 mmol/L Chloride 97 97-108 mmol/L CO2 28 22-32 mmol/L Glucose 87 65-99 mg/dL BUN 21 8-23 mg/dL Creatinine 0.52 0.50-1.00 mg/dL Calcium 9.5 8.6-10.4 mg/dL eGFR by Creatinine 93 >59 mL/min/1.73m2 Protein 6.7 6.0-8.3 g/dL Albumin 4.4 3.5-5.3 g/dL Alkaline Phosphatase 29 35-121 IU/L ALT (SGPT) 15 <5-47 IU/L AST (SGOT) 22 <5-40 IU/L Bilirubin, Total 0.3 <0.2-1.2 mg/dL A/G Ratio 1.9 1.1-2.5 P-Iron Reviewed date:12/05/2023 12:55:40 PM Interpretation: Performing Lab: Notes/Report: Test performed by [facility] [address] , [place] [address] Satish Herrera MD, Woodworking Shop Laborer CLIA: [id number] Iron 57 37-145 ug/dL P-Magnesium Reviewed date:12/05/2023 12:55:40 PM Interpretation: Performing Lab: Notes/Report: Test performed by [facility] [address] , [place] [address] Satish Herrera MD, Woodworking Shop Laborer CLIA: [id number] Magnesium 1.8 1.6-2.4 mg/dL P-TSH reflex to FT4 Reviewed date:12/05/2023 12:55:40 PM Interpretation: Performing Lab: Notes/Report: Test performed by [facility] [address] , [place] [address] Satish Herrera MD, Woodworking Shop Laborer CLIA: [id number] TSH reflex to FT4 1.55 0.43-5.25 mU/L B-Type Natriuretic Peptide Reviewed date:12/05/2023 12:55:40 PM Interpretation: Performing Lab: Notes/Report: Test performed by [facility] [address] , [place] [address] Satish Herrera MD, Woodworking Shop Laborer CLIA: [id number] B-Type Natriuretic Peptide 183.0 <2.0-100.0 pg/ mL X ray : Shoulder, left Reviewed date:12/06/2023 12:28:58 PM Interpretation:Abnormal Performing Lab: Notes/Report: Abnormal Echocardiogram Reviewed date:12/26/2023 01:30:05 PM Interpretation:Abnormal Performing Lab: Notes/Report: Abnormal CXR Reviewed date:12/06/2023 12:29:32 PM Interpretation:unremarkable Performing Lab: Notes/Report: unremarkable REASON FOR VISIT both legs swelling left is the worse Medications Medication SIG (Take, Route, Frequency, Duration) Notes Start Date End Date Status NIFEdipine ER 30 MG 1 tab(s) orally 2 times a day; Duration: 90 days Active ICOSAPENT 1 G 2 CAP(S) ORALLY 2 TIMES A DAY; Duration: 90 DAYS *Please review for potential replacement for e-prescription and drug interaction check* 06/01/2022 Active Icosapent Ethyl 1 GM 2 capsules with meals Orally Twice a day; Duration: 90 days 11/08/2022 Active Omeprazole 40 MG 1 cap(s) orally once a day; Duration: 90 days Active Atenolol 25 MG 1 tab(s) orally once a day; Duration: 90 days Active FLAX SEED 1000 MG DAILY *Please review for potential replacement for e-prescription and drug interaction check* Active Baclofen 10 MG 1 tab(s) orally 3 times a day; Duration: 90 days Active Cinnamon 500 MG 2 cap(s) orally Active Zinc Acetate 50 MG 1 cap(s) orally once daily Active Docusate Sodium 100 MG 1 cap(s) orally 2 times a day Active Vitamin C 500 MG 1 tab(s) orally twice a day Active metFORMIN HCl 500 MG 1 tab(s) orally 2 times a day; Duration: 90 days Active Vitamin E 400 UNIT 1 cap(s) orally once a day Active Fenofibrate 145 MG 1 tablet Orally Once a day; Duration: 90 days Active Vitamin B12 *Please review and pick correct strength-formulat ion from Mydishan options. If intended option is not shown, discontinue and re-order from Quick Search* Active CareTouch CPAP & BIPAP Hose 1 DIRECTED *Please review and pick correct strength-formulat ion from Mydishan options. If intended option is not shown, discontinue and re-order from Quick Search* Active Sertraline HCl 100 MG 2 tab(s) orally once a day; Duration: 90 days Active Ferrous Sulfate 325 (65 Fe) MG 1 tab(s) orally once a day; Duration: 90 days Active Vitamin D3 50 MCG (2000 UT) 2 tab orally once a day Active Glucosamine Chond MSM Formula - 2 tab orally BID Active Ofloxacin 0.3 % 1 gtt in each affected eye 4 times a day; Duration: 5 day(s) 05/17/2022 Not-Taking Lasix 20 MG 1 tablet Orally Once a day; Duration: 30 day(s) 12/04/2023 Active Atorvastatin Calcium 20 MG 1 tablet Orally Once a day; Duration: 90 days 08/07/2023 Active Prolia 60 MG/ML as directed Subcutaneous every 6 months 07/30/2023 Active Irbesartan 300 MG 1 tab(s) orally once a day; Duration: 90 days Active Flonase Allergy Relief 50 MCG/ACT 1 spray in each nostril Nasally Once a day 07/26/2023 Active Pregabalin 200 MG 1 cap(s) orally 2 times a day; Duration: 90 days 07/26/2023 Active Triamcinolone Acetonide 0.1 % 1 application do not rinse afterwards and avoid eating or drinking for 30 minutes Mouth/Throat Twice a day, prn 07/26/2023 Active Sucralfate 1 GM TAKE 1 TABLET BY MOUTH 4 TIMES DAILY BEFORE MEAL(S) AND AT BEDTIME; Duration: 30 Active Potassium Chloride ER 10 MEQ 1 cap(s) orally 2 times a day; Duration: 90 days Active Montelukast Sodium 10 MG 1 tab(s) orally once a day as needed; Duration: 90 days Active Vital Signs Blood pressure systolic 170 mm Hg 12/04/19 24 Blood pressure diastolic 82 mm Hg 024 Heart Rate 64 /min 12/04/2023 Height 60 in 12/04/2023 Weight 185.8 lbs 12/04/2023 BMI 36.28 kg/m2 12/04/2023 Encounters Encounter Location Date Provider Diagnosis [facility] [address] [id number] 12/04/2023 Gricelda Huerta Essential hypertensi on I10 ; Lower extremity edema R60.0 ; Acute cough R05.1 ; Shortness of breath R06.02 ; Myalgia M79.10 ; Acute anemia D64.9 ; Pain, joint, shoulder, left M25.512 ; Hypertriglyceridemia E78.1 ; Mood disorder F39 ; Iron deficiency anemia, unspecified iron deficiency anemia type D50.9 ; Type 2 diabetes mellitus without complication, without long-term current use of insulin E11.9 and Other chronic pain G89.29 Assessments Encounter Date Diagnosis (ICD Code) Assessment Notes Treatment Notes Treatment Clinical Notes Section Notes 12/04/2023 Essential hypertensi on (ICD-10 - I10) Patient will monitor at home. The lasix should help bring it down as well. Her daughter is a nurse and has been doing dressing changes so she can recheck as well. 12/04/2023 Lower extremity lisseth a (ICD-10 - R60.0) Discussed with Dr. Johnson. Will get labs, CXR, and an echo. 12/04/2023 Acute cough (ICD-10 - R05.1) 12/04/2023 Shortness of breath (ICD-10 - R06.02) 12/04/2023 Myalgia (ICD-10 - M79.10) 12/04/2023 Acute anemia (ICD-10 - D64.9) 12/04/2023 Pain, joint, shoulde r, left (ICD-10 - M25.512) She has also been having shoulder pain and would like an x-ray of that as well. 12/04/2023 Hypertriglyceridemia (ICD-10 - E78.1) 12/04/2023 Mood disorder (ICD-1 0 - F39) 12/04/2023 Iron deficiency anem ia, unspecified iron deficiency anemia type (ICD-10 - D50.9) 12/04/2023 Type 2 diabetes sher itus without complication, without long-term current use of insulin (ICD-10 - E11.9) 12/04/2023 Other chronic pain (ICD-10 - G89.29) Dressings on her back were changed. Telfa and tegaderm were applied. Plan Of Treatment Medication Medication Name Sig Start Date Stop Date Notes Baclofen 10 MG 1 tab(s) orally 3 ti mes a day; Duration: 90 days metFORMIN HCl 500 MG 1 tab(s) orally 2 t imes a day; Duration: 90 days Fenofibrate 145 MG 1 tablet Orally Once a day; Duration: 90 days Sertraline HCl 100 MG 2 tab(s) orally on ce a day; Duration: 90 days Ferrous Sulfate 325 (65 Fe) MG 1 tab(s) orally once a day; Duration: 90 days Lasix 20 MG 1 tablet Orally Once a day; Duration: 30 day(s) 12/04/2023 Treatment Notes Assessment Notes Essential hypertension Patient will ravinder tor at home. The lasix should help bring it down as well. Her daughter is a nurse and has been doing dressing changes so she can recheck as well. Lower extremity edema Discussed with Dr. Johnson. Will get labs, CXR, and an echo. Pain, joint, shoulder, left She has also been having shoulder pain and would like an x-ray of that as well. Other chronic pain Dressings on her usman k were changed. Telfa and tegaderm were applied. Next Appt Details Follow Up: via phone to repo rt test results, Reason: Progress Notes * Perri APPIAHOB: 3 (84 yo F)Acc No.[id number]:12/04/2023 Progress Notes Patient: Mariely RODRIGUEZ Provider: NEHEMIAH Eddy :1940 A ge:83 Y S ex:Female Date:12/04/2023 Address:[address] [place], [place] [id number] Pcp:Jordan Johnson Subjective: * Chief Complaints: * 1 . Both legs swelling left is the worse. * HPI: C ardiology: The patient is here today with c/o shortness of breath, lower extremity edema and some leg pain. Pt states it is worse in the left. Pt denies any chest pain. Pt states the swelling was worse on Saturday and Saturday. She just recently had her pain pump removed and another one placed about 3 weeks ago. After the procedure she developed a cough and over the past few weeks has developed SOA and bilateral leg swelling. She went to a [facility] and they told her the antibiotics given to her postop should cover everything and did no further testing. 83 year old female presents with c/o Short of Breath. c/o Leg Edema. Denies : Chest Pain. H PI: c/o Patient is here today for S he needs refills on some of her medications and also needs her dressings on her back changed. She still has bernarda that are supposed to be removed in about a week.. * ROS: D ERMATOLOGY: no R tolu. n o H veda. G ASTROENTEROLOGY: no N ausea. n o V omiting. n o D iarrhea.? U ROLOGY: no D ifficulty urinating. n o B lood in urine. * Medical History: H ypertension, Arthritis, Hyperlipidemia, Type 2 diabetes, Gastroesophageal reflux disease, esophagitis presence not specified, Low back pain, Charcot foot, 2018, treated by Dr. Duval, Has a primary MD in [place], 12/2021 [facility]. * Surgical History: c holecystectomy , x2 , hysterectomy , knee replacement x4 , crushed elbow repair , carpal tunnel repair , ganglion cyst removal R wrist , bilateral breast reducation 08/15/2009, Back Surgery-rods and screws placed in L4 and L5 2009, Appendectomy , Hemorrhoidectomy X2 , colonoscopy 2015, Pain Pump - Dilaudid 05/22/2017, Right hip replacement- [facility] 09/23/2019, right shoulder replacement - Dr Douglass - [facility] 12/07/2020, Spinal surgery 03/2021, Left ankle repair 12/19/2021. * Hospitalization/Major Diagno stic Procedure: c hild 1962, 1964, 1968, 71,73, HTN-[facility] 05/2015, Elbow Repair 1984, [facility] 04/2020, LT Posterior tibial tendon dysfunction [facility] [place], [place] 12/19-. * Family History: F ather: 96 yrs, glaucoma, CHF, thyroid problems, enlarged prostate. M other: . 1 brother(s) , 8 sister(s) . 2 son(s) , 2 daughter(s) - healthy. . * Social History: C affeine: yes, frequency:coffee-daily. Exercise: no. Marital Status: . Past smoking status: no. Recreational drug use: no. Alcohol: No. * Medications: T aking CareTouch CPAP & BIPAP Hose MACHINE AND SUPPLIES 1 DIRECTED , Notes to Pharmacist: *Please review and pick correct strength-formulation from GI Track options. If intended option is not shown, discontinue and re-order from Quick Search*, Taking Glucosamine Chond MSM Formula - Tablet 2 tab orally BID , Taking Vitamin D3 50 MCG (2000 UT) Tablet 2 tab orally once a day , Taking Vitamin E 400 UNIT Capsule 1 cap(s) orally once a day , Taking Vitamin C 500 MG Tablet 1 tab(s) orally twice a day , Taking Vitamin B12 , Notes to Pharmacist: *Please review and pick correct strength-formulation from GI Track options. If intended option is not shown, discontinue and re-order from Quick Search*, Taking Docusate Sodium 100 MG Capsule 1 cap(s) orally 2 times a day , Taking Zinc Acetate 50 MG Capsule 1 cap(s) orally once daily , Taking Cinnamon 500 MG Capsule 2 cap(s) orally , Taking FLAX SEED 1000 MG DAILY , Notes to Pharmacist: *Please review for potential replacement for e-prescription and drug interaction check*, Taking ICOSAPENT 1 G CAPSULE 2 CAP(S) ORALLY 2 TIMES A DAY , Notes to Pharmacist: *Please review for potential replacement for e-prescription and drug interaction check*, Taking NIFEdipine ER 30 MG Tablet Extended Release 24 Hour 1 tab(s) orally 2 times a day , Taking Atenolol 25 MG Tablet 1 tab(s) orally once a day , Taking Omeprazole 40 MG Capsule Delayed Release 1 cap(s) orally once a day , Taking Icosapent Ethyl 1 GM Capsule 2 capsules with meals Orally Twice a day , Taking Sertraline HCl 100 MG Tablet 2 tab(s) orally once a day , Taking Ferrous Sulfate 325 (65 Fe) MG Tablet 1 tab(s) orally once a day , Taking Montelukast Sodium 10 MG Tablet 1 tab(s) orally once a day as needed , Taking Potassium Chloride ER 10 MEQ Capsule Extended Release 1 cap(s) orally 2 times a day , Taking Sucralfate 1 GM Tablet TAKE 1 TABLET BY MOUTH 4 TIMES DAILY BEFORE MEAL(S) AND AT BEDTIME , Taking Triamcinolone Acetonide 0.1 % Paste 1 application do not rinse afterwards and avoid eating or drinking for 30 minutes Mouth/Throat Twice a day, prn , Taking Pregabalin 200 MG Capsule 1 cap(s) orally 2 times a day , Taking Flonase Allergy Relief 50 MCG/ACT Suspension 1 spray in each nostril Nasally Once a day , Taking Prolia 60 MG/ML Solution Prefilled Syringe as directed Subcutaneous every 6 months , Taking Fenofibrate 145 MG Tablet 1 tablet Orally Once a day , Taking Atorvastatin Calcium 20 MG Tablet 1 tablet Orally Once a day , Taking Baclofen 10 MG Tablet 1 tab(s) orally 3 times a day , Taking Irbesartan 300 MG Tablet 1 tab(s) orally once a day , Taking metFORMIN HCl 500 MG Tablet 1 tab(s) orally 2 times a day , Not- Taking Ofloxacin 0.3 % Solution 1 gtt in each affected eye 4 times a day , Medication List reviewed and reconciled with the patient * Allergies: I 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 Objective: * Vitals: W t:185.8, Temp:98.3, BP:170/82, HR:64, O2 Sat:96% on RA, Nurse:VICENTE, Ht: 60, BMI:36.28. * Examination: G eneral Examination: General Appearance: N AD. H EENT: u nremarkable.?Oral cavity: n o lesions, mucosa moist and WNL, no erythema. N silvana: s upple, no lymphadenopathy. C hest: n ormal shape and expansion. H eart: R SR. L ungs: c lear to auscultation, decreased breath sounds. A bdomen: bowel sounds present, soft and nontender, no organomegaly or masses, no guarding or rigidity. N eurologic Exam: I ntact, gait normal. S kin: i ncisions along the spine and right lower back with bernarda in place, clean and dry. P eripheral pulses: n ormal (2+) bilaterally. E xtremities: 2 + leg edema bilaterally. Assessment: * Assessment: 1. E ssential hypertension - I10 (Primary) 2 . L ower extremity edema - R60.0 3 . A cute cough - R05.1 4 . S hortness of breath - R06.02 5 . M yalgia - M79.10 6 . A cute anemia - D64.9 7 . P ain, joint, shoulder, left - M25.512 8 . H ypertriglyceridemia - E78.1 9 . M ood disorder - F39 1 0. I devang deficiency anemia, unspecified iron deficiency anemia type - D50.9 1 1. T ype 2 diabetes mellitus without complication, without long-term current use of insulin - E11.9 1 2. O ther chronic pain - G89.29 Plan: * Treatment: 2. L ower extremity edema Start Lasix Tablet, 20 MG, 1 tablet, Orally, Once a day, 30 day(s), 30 Tablet, Refills 0. ? L AB: P-Comprehensive Metabolic Panel (CMP) (Collection Date & Time - 12/04/2023 01:50 PM) Value Reference Range A /G Ratio 1.9 1.1-2.5 - * A lbumin 4.4 3.5-5.3 - g/dL * A lkaline Phosphatase 29 L 35-121 - IU/L * A LT (SGPT) 15 <5-47 - IU/L * A ST (SGOT) 22 <5-40 - IU/L * B ilirubin, Total 0.3 <0.2-1.2 - mg/dL * B UN 21 8-23 - mg/dL * C alcium 9.5 8.6-10.4 - mg/dL * C hloride 97 97-108 - mmol/L * C O2 28 22-32 - mmol/L * C reatinine 0.52 0.50-1.00 - mg/dL * G lucose 87 65-99 - mg/dL * P otassium 4.2 3.5-5.3 - mmol/L * S odium 138 135-145 - mmol/L * P rotein 6.7 6.0-8.3 - g/dL * e GFR by Creatinine 93 >59 - mL/min/1.73m2 * Gricelda Huerta 12/05/2023 12 :55:00 PM > see TE ?LAB: P-TSH reflex to FT4 (Collection Date & Time - 12/04/2023 01:50 PM)* Value Reference Range T SH reflex to FT4 1.55 0.43-5.25 - mU/L * Gricelda Huerta 12/05/2023 12 :55:00 PM > see TE ?LAB: P-BNP (Brain Natriuretic Peptide) (Collection Date & Time - 07/14/2024)* see duplicate order Notes: Discussed with Dr. Johnson. Will get labs, CXR, and an echo.??3.?Acute cough?LAB: CBC Venipuncture (in house) (Collection Date & Time - 12/04/2023)* Value Reference Range w bc 4.8 3.5 - 10 * l ymph 22.7% 15 - 50 * m id 6.2% 2 - 15 * g ran 71.1% 35 - 80 * r bc 3.54 3.5 - 5.5 * h gb 10.3 11.5 - 16.5 * h ct 30.9 35 - 55 * m cv 87.4 75 - 100 * m ch 29.3 25 - 35 * m chc 33.5 31 - 38 * p latlet 246 100 - 400 * Bailee Bragg L 12/04/2023 2:0 9:14 PM > , Provider reviewed results while patient in office.Gricelda Huerta 12/04/2023 3:36:03 PM > 4.?Shortness of breath?Imaging: CXR (Performed Date - 12/04/2023)?unremarkable* Gricelda Huerta 12/06/2023 12 :29:23 PM > see TE ?Imaging: Echocardiogram (Performed Date - 12/19/2023)?Abnormal* Gricelda Huerta 12/04/2023 3: 34:19 PM >Mery Molina 12/05/2023 9:12:02 AM > call [phone]; spoke with Rivka in customer service; auth#[id number]; valid 12-05-2023 thru 02-02-2024; CPT code 61669; Daisha auth#[id number]; valid 12-05-2023 thru [id number],Shannon 12/06/2023 10:59:34 AM > 12/18 @1pYarelisGricelda Serna 12/26/2023 1:30:01 PM > see TE 5.?Myalgia?LAB: P-Magnesium (Collection Date & Time - 12/04/2023 01:50 PM)* Value Reference Range M agnesium 1.8 1.6-2.4 - mg/dL * Gricelda Huerta 12/05/2023 12 :55:00 PM > see TE 6.?Acute anemia? Refill Ferrous Sulfate Tablet, 325 (65 Fe) MG, 1 tab(s), orally, once a day, 90 days, 90, Refills 3.??7.?Pain, joint, shoulder, left?Imaging: X ray : Shoulder, left (Performed Date - 12/04/2023)?Abnormal* Gricelda Huerta 12/06/2023 12 :28:55 PM > see TE Notes: She has also been having shoulder pain and would like an x-ray of that as well.??8.?Hypertriglyceridemia? Refill Fenofibrate Tablet, 145 MG, 1 tablet, Orally, Once a day, 90 days, 90 Tablet, Refills 3. ?9.?Mood disorder? Refill Sertraline HCl Tablet, 100 MG, 2 tab(s), orally, once a day, 90 days, 180, Refills 3.? 10.?Iron deficiency anemia, unspecified iron deficiency anemia type?LAB: P-Iron (Collection Date & Time - 12/04/2023 01:50 PM)* Value Reference Range I devang 57 37-145 - ug/dL * Gricelda Huerta 12/05/2023 12 :55:00 PM > see TE 11.?Type 2 diabetes mellitus without complication, without long-term current use of insulin? Refill metFORMIN HCl Tablet, 500 MG, 1 tab(s), orally, 2 times a day, 90 days, 180 Tablet, Refills 3.??12.?Other chronic pain? Refill Baclofen Tablet, 10 MG, 1 tab(s), orally, 3 times a day, 90 days, 270 Tablet, Refills 3. ? Notes: Dressings on her back were changed. Telfa and tegaderm were applied.?? * Labs: * L ab: B-Type Natriuretic Peptide (Collection Date & Time - 12/04/2023 01:50 PM) Value Reference Range B -Type Natriuretic Peptide 183.0 H <2.0-100.0 - p g/mL * [facility], support 12/05/2023 11:35:05 : This order was created by the Interface. DeannaGricelda 12/05/2023 12:55:00 PM > see TE * Procedure Codes: 9 4760 [place], [address] CBC WITH AUTO DIFF, 66897 VENIPUNCT, ROUTINE* * Follow Up: v ia phone to report test results * Images: Billing Information: * Visit Code: 72800 Office Visit, Est Pt., Level 4. * Procedure Codes: [address] [place]. [address] CBC WITH AUTO DIFF. 48466 VENIPUNCT, ROUTINE*. * Electronic signature of NEHEMIAH Glez on 01/20/2025 at 09:18 AM EST Sign off status: Pending * Provider: NEHEMIAH Eddy Date: 0 12/04/2023 Generated for Kar kessler/Elvira/Cassiasmitting on: 1 03/22/2024 09:18 AM EST History and Physical Notes * HPI (History of Present Illness) Category Sub-Category Detail Notes Category Not es Cardiology Short of Breath Chest Pain Leg Edema HPI Patient is here today for She ne eds refills on some of her medications and also needs her dressings on her back changed. She still has bernarda that are supposed to be removed in about a week. Examination Category Sub-Category Detail Notes Category Not es General Examination HEENT: unremarkable Heart: RSR Lungs: clear to auscultatio n, decreased breath sounds Abdomen: bowel sounds present , soft and nontender, no organomegaly or masses, no guarding or rigidity Extremities: 2+ leg edema bilater ally General Appearance: NAD Skin: incisions along the spine and right lower back with bernarda in place, clean and dry Neurologic Exam: Intact, gait normal Neck: supple, no lymphaden opathy Oral cavity: no lesions, mucosa m oist and WNL, no erythema Peripheral pulses: normal (2+) bilatera lly Chest: normal shape and exp ansion
--- OUTSIDE RECORDS SUMMARY | 2024-01-31 08:45 | XMS_ITS ---
Author Organization [facility] Address [address] [facility] [address] [facility] [address] [place], [place] [id number] Care Team Providers Care Industrial Methods Consultant Name Role Phone Jordan Johnson Primary Care Provider Gricelda Huerta [phone] REASON FOR VISIT prolia injection Encounters Encounter Location Date Provider Diagnosis [facility] [address] [facility] [address] [facility] [address] [place] [id number] 01/31/2024 Gricelda Huerta Osteoporosis M81.0 Assessments Encounter Date Diagnosis (ICD Code) Assessment Notes Treatment Notes Treatment Clinical Notes Section Notes 01/31/2024 Osteoporosis (ICD-10 - M81.0) Plan Of Treatment No Information Medications Administered Medication Instructions Date of Administration Dosage Notes PROLIA 01/31/2024 1 mL left arm Progress Notes * Rory APPIAHVeronicaOB: 3 (84 yo F)Acc No.[id number]:01/31/2024 Patient: Mariely RODRIGUEZ Provider: NEHEMIAH Eddy :1940 A ge:83 Y S ex:Female Date:01/31/2024 Address:[address] [place] [id number] Pcp:Jordan Johnson Subjective: * Chief Complaints: * 1 . Prolia injection. * Medical History: Objective: * Vitals: Assessment: * Assessment: 1. O steoporosis - M81.0 (Primary) Plan: * Treatment: * Therapeutic Injections: Prolia : 1 mL (Route: Subcutaneous) given by RILEY Brewster on subcutaneus * Procedure Codes: 9 6372 ADMINISTRATION OF INJECTION * Images: Billing Information: * Visit Code: * Procedure Codes: 16605 ADMINISTRATION OF INJECTION. * Electronic signature of NEHEMIAH Glez on 01/20/2025 at 09:18 AM EST Sign off status: Pending * Provider: NEHEMIAH Eddy Date: 04/01/2023 Generated for Kar kessler/Elvira/Getachewransmitting on: 03/22/2024 09:18 AM EST
--- OUTSIDE RECORDS SUMMARY | 2024-06-19 09:20 | XMS_ITS ---
Author Organization [facility] [employer] [facility] Address [address] [place] [address] Care Team Providers Care Shoe Parts Molder Name Role Phone Anna Lim Primary Care Provider [phone] Yenny Tellez [phone] Allergies Allergen (clinical drug ingredient) Drug/Non Drug Allergy documented on EMR Reaction Allergy Type Onset Date Status IVP DYE (uncoded) Hives Allergy Ac tive Iodine Hives Drug Allergy Active REASON FOR VISIT *AWV Social History Tobacco Use: Social History Observation Description Date Details (start date - stop date) Never Smoker NA - NA Tobacco Use/Smoking Question Answer Notes Are you a nonsmoker Encounters Encounter Location Date Provider Diagnosis [facility] [address] [place] [address] 06/19/2024 Yenny Tellez Assessments Encounter Date Diagnosis (ICD Code) Assessment Notes Treatment Notes Treatment Clinical Notes Section Notes 06/19/2024 Other I have reviewed and updated the HPI, Current Medications, PFSH, ROS, and Preventive Medicine Screening done by ancillary staff. Patient was given a personalized prevention plan. Plan Of Treatment Treatment Notes Assessment Notes Other I have reviewed and updated the HPI, Current Medications, PFSH, ROS, and Preventive Medicine Screening done by ancillary staff. Patient was given a personalized prevention plan. Progress Notes * YUMI APPIAHDOB: [birth year] (84 yo F)Acc No.[id number]:06/19/2024 Progress Note Patient: Cooper YUMI BERNSTEIN Provider: Naeem Tellez, MSN, RN OPERATING ROOM, SENIOR PROGRAM PLANNER-C :1940 A ge:84 Y S ex:Female Date:06/19/2024 Address:[address] [place] [id number] Pcp:Anna Jules Structured Data:General cons ent obtained : Written; Date obtained: : 08/10/2022 Subjective: * Chief Complaints: * 1 . *AWV. * HPI: C oordination of Care: Providers and Specialists D o you have other providers/specialists? _ ____ C OA-Care of Older Adults: DME D o you use a DME company? _ ____ Functional Assessment H ow often does your physical health interfere with your daily activities? _ ____ H earing _ ____ V ision _ ____ AWV Cognitive Assessment D o you have any concerns about your memory?? D o any of your friends or family have any concerns about your memory? _ ____ ( Use MiniCog for patients 65-84 yrs and SLUMS for patients >85 yrs in addition to above) . Activities of Daily Living (ADL)/Instrumental ADL C urrent physical activity as compared to last year? _ ____ D o you require assistance with: _ ___ D o you have leakage/incontinence issues? _ ____ Fall Risk Assessment H ave you fallen in the past year? _ ____ D o you worry about falling? _ ____ D o you feel unsteady when standing or walking? _ ____ D o you use any assistive devices? _ ____ T cristian up and Go Test (TUG) _ ____ Advance Care Planning D o you have Advanced Directives, Living Will, or Surrogate Decision Letter? _ __ D id the provider have conversations with the patient regarding Advance Directives? . Pain Assessment/Controlled Substance Prescribing A re you currently experiencing pain of any kind? _ ____ A re you currently under pain management? _ ____ D epression Screening: PHQ-2 (2015 Edition) L ittle interest or pleasure in doing things??Declined to specify F eeling down, depressed, or hopeless? D eclined to specify T otal Score 0 Time Spent on Depression Screening: N umber of minutes spent on screening test:?. T APS 1 Screening: TAPS 1 I n the PAST 12 MONTHS, how often have you used any tobacco products? _ ____ I n the PAST 12 MONTHS, how often have you had 5 or more drinks containing alcohol in one day? One standard drink is about 1 small glass of wine (5 oz), 1 beer (12 oz), or 1 single shot of liquor. _ (Males Only) I n the PAST 12 MONTHS, how often have you had 4 or more drinks containing alcohol in one day? One standard drink is about 1 small glass of wine (5 oz), 1 beer (12 oz), or 1 single shot of liquor. _ (Females Only) I n the PAST 12 MONTHS, how often have you used any drugs including marijuana, cocaine or crack, heroin, methamphetamine (crystal meth), hallucinogens, ecstasy/MDMA? _ ____ I n the PAST 12 MONTHS, how often have you used any prescription medications just for the feeling, more than prescribed or that were not prescribed for you? Prescription medication that may be used this way: Opiate pain relievers (for example, OxyContin, Vicodin, Percocet, Methadone) Medications for anxiety or sleeping (for example, Xanax, Ativan, Klonopin) Medications for ADHD (for example, Adderall or Ritalin) _ I f questions 2, 3, 4 or 5 are positive or patient is on opiates or BZDs please proceed to SUDS template. . Time Spent on Alcohol Screening: N umber of minutes spent on screening test:?. * Medical History: H [place], Hypercholestrolemia, GERD, Anxiety disorder, Depression, DJD of Cervical Spine, Hyperglycaemia NOS, DM Type 2 controlled*, Personal history of colonic polyps. 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 * Surgical History: a ppendectomy , tubal ligation , hysterectomy , cholecystectomy , elbow , carpal tunnel , trigger finger , cyst removal , C section , knee replacement Left , breast reductuion 08-15-09, Orthroscopy lt knee surg 02-28-10, back surg , arthrscopic Rt knee , Knee replacement right 04-02-12, colonoscopy 2010. * Hospitalization/Major Diagno stic Procedure: l [facility]-high bp 04/2015. * Family History: M other: , Cancer. F ather: , Heart Disease. S iblings: alive, High BP,Cancer. P aternal Grand Father: , diagnosed with Other specified conditions influencing health status. P aternal Grand Mother: , diagnosed with Other specified conditions influencing health status. M aternal Grand Father: , diagnosed with Other specified conditions influencing health status. M aternal Grand Mother: , diagnosed with Other specified conditions influencing health status. C hildren: alive, High BP. 1 brother(s) , 7 sister(s) . 2 son(s) , 2 daughter(s) . . * Social History: T obacco Use: T obacco Use/Smoking A re you a n onsmoker * Allergies: I odine: Hives - Allergy, IVP DYE: Hives - Allergy. Objective: * Vitals: * P ast Orders: L ab:Hemoglobin A1c (Order Date - 06/05/2024) (Collection Date & Time - 06/05/2024 10:02 AM) Value Reference Range Hemoglobin A1c 6.1 H 4.8-5.6 - % L ab:Urinalysis, Complete with Microscopic Examination (Order Date - 06/05/2024) (Collection Date & Time - 06/05/2024 10:02 AM) Value Reference Range Bacteria None seen None seen/Few - Casts None seen None seen - /lpf Epithelial Cells (non renal) 0-10 0 - 10 - /h pf RBC None seen 0 - 2 - /hpf WBC 0-5 0 - 5 - /hpf Microscopic Examination See below: - WBC Esterase 2+ A Negative - Specific [place] 1.013 1.005-1.030 - pH 8.0 H 5.0-7.5 - Appearance Clear Clear - Protein Negative Negative/Trace - Glucose 2+ A Negative - Ketones Negative Negative - Occult Blood Negative Negative - Urobilinogen,Semi-Qn 0.2 0.2-1.0 - mg/dL Nitrite, Urine Negative Negative - Bilirubin Negative Negative - Urine-Color Yellow Yellow - L ab:TSH (Order Date - 06/05/2024) (Collection Date & Time - 06/05/2024 10:02 AM) Value Reference Range TSH 1.360 0.450-4.500 - uIU/mL L ab:CBC with platelets and differential (Order Date - 06/05/2024) (Collection Date & Time - 06/05/2024 10:02 AM) Value Reference Range WBC 4.1 3.4-10.8 - x10E3/uL RBC 4.55 3.77-5.28 - x10E6/uL Hemoglobin 12.6 11.1-15.9 - g/dL Hematocrit 38.9 34.0-46.6 - % MCV 86 79-97 - fL MCH 27.7 26.6-33.0 - pg MCHC 32.4 31.5-35.7 - g/dL RDW 14.1 11.7-15.4 - % Platelets 234 150-450 - x10E3/uL Neutrophils 57 Not Estab. - % Lymphs 29 Not Estab. - % Monocytes 11 Not Estab. - % Eos 2 Not Estab. - % Basos 1 Not Estab. - % Neutrophils (Absolute) 2.4 1.4-7.0 - x10E3/u L Lymphs (Absolute) 1.2 0.7-3.1 - x10E3/uL Monocytes(Absolute) 0.4 0.1-0.9 - x10E3/uL Eos (Absolute) 0.1 0.0-0.4 - x10E3/uL Baso (Absolute) 0.0 0.0-0.2 - x10E3/uL Immature Granulocytes 0 Not Estab. - % Immature Grans (Abs) 0.0 0.0-0.1 - x10E3/uL L ab:Lipid Panel w/ Chol/HDL Ratio (Order Date - 06/05/2024) (Collection Date & Time - 06/05/2024 10:02 AM) Value Reference Range Cholesterol, Total 143 100-199 - mg/dL T. Chol/HDL Ratio 4.3 0.0-4.4 - ratio Triglycerides 134 0-149 - mg/dL HDL Cholesterol 33 L >39 - mg/dL VLDL Cholesterol Noah 24 5-40 - mg/dL LDL Chol Calc (NIH) 86 0-99 - mg/dL L ab:Comp. Metabolic Panel (14) (Order Date - 06/05/2024) (Collection Date & Time - 06/05/2024 10:02 AM) Value Reference Range Albumin, Serum 4.9 H 3.7-4.7 - g/dL Alkaline Phosphatase, S 31 L 44-121 - IU/L ALT (SGPT) 13 0-32 - IU/L AST (SGOT) 21 0-40 - IU/L Bilirubin, Total 0.3 0.0-1.2 - mg/dL BUN 22 8-27 - mg/dL BUN/Creatinine Ratio 30 H 12-28 - Calcium, Serum 9.7 8.7-10.3 - mg/dL Carbon Dioxide, Total 28 20-29 - mmol/L Chloride, Serum 99 96-106 - mmol/L Creatinine, Serum 0.74 0.57-1.00 - mg/dL Globulin, Total 2.2 1.5-4.5 - g/dL Glucose, Serum 114 H 70-99 - mg/dL Potassium, Serum 4.1 3.5-5.2 - mmol/L Protein, Total, Serum 7.1 6.0-8.5 - g/dL Sodium, Serum 140 134-144 - mmol/L eGFR 81 >59 - mL/min/1.73 L ab:Albumin/Creatinine Ratio, Random Urine (Order Date - 06/05/2024) (Collection Date & Time - 06/05/2024 10:02 AM) Value Reference Range Alb/Creat Ratio 105 H 0-29 - mg/g creat Albumin, Urine 20.1 Not Estab. - ug/mL Creatinine, Urine 19.2 Not Estab. - mg/dL Assessment: Plan: * Treatment: * Preventive Medicine: Personal Prevention Plan: C ardiovascular Screening (Cholesterol): Last Done: 0 06/06/2024 . Next Due: . D iabetes Screening (A1c, Fasting Blood Sugar): Last Done: 0 06/06/2024 . Next Due: . H epatitis C Screening (if applicable): Last Done: . N/A Next Due: . H IV testing (if applicable): Last Done: N /A Next Due: . O steoporosis Screening (Dexa or Sexa Scan): Last Done: d one 2022- In [facility], request records Next Due: . B reast Cancer Screening (Mammogram): Last Done: D one 2022- In [facility], request records Next Due: . C ervical Cancer Screening (Pap smear): Last Done: . N/A Due To age Next Due: . C olorectal Cancer Screening (Colonoscopy, FOBT, FIT, Cologuard): Last Done: 0 06/28/2023 .Given today 06/21/23 Next Due: . L elizabeth Cancer Screening (Low Dose Chest CT): Last Done: . N/A- non smoker Next Due: . F brad Vaccine: Last Done: 1 .Pt Declines vaccine Next Due: . H ep B Vaccine (if applicable): Last Done: . N/A Pt Declines Next Due: . P neumonia Vaccine (Prevnar 13): Last Done: V accine given in [place] , 5 years ago, will work to get records Next Due: . P neumonia Vaccine (Prevnar 20): Last Done: . RECOMMENDATION FOR PNUEMONIA VACCINES DISCUSSED AND PROVIDED TO PATIENT FOR ADMINISTRATION AT LOCAL PHARMACY IF INDICATED APPROPRIATE FOLLOWING CDC GUIDELINES Next Due: . P neumonia Vaccine (Pneumovax 23): Last Done: . RECOMMENDATION FOR PNUEMONIA VACCINES DISCUSSED AND PROVIDED TO PATIENT FOR ADMINISTRATION AT LOCAL PHARMACY IF INDICATED APPROPRIATE FOLLOWING CDC GUIDELINES Next Due: . S HINGRIX (Shingles Vaccine): Last Done: 0 07/28/2018 . Next Due: . T DAP (Tetanus Vaccine): Last Done: . RECOMMENDATION FOR TDAP VACCINE DISCUSSED AND PROVIDED TO PATIENT FOR ADMINISTRATION AT LOCAL PHARMACY IF INDICATED APPROPRIATE FOLLOWING CDC GUIDELINES Next Due: . Z OSTAVAX (Shingles Vaccine): Last Done: . C OVID 19 Vaccine: Last Done: P t Declines Next Due: . EDAPS: P AD Screening: Last Done: 0 05/23/2023 normal right, moderate left Next Due: 0 05/22/2024 D PN/Foot Exam: Last Done: 0 05/23/2023 monofilament sensation intact Next Due: 0 05/22/2024 E cho: Last Done: 0 04/27/2020 at [facility] EF 60-65%, trivial AR/TR, mild to moderate MR P TH: Last Done: 0 05/13/2023 normal Next Due: 0 05/12/2024 HEDIS: D iabetic Eye Care Last Done: F ebruary 2022 in [place] per pt Next Due: e ncouraged to make optometry apt for 2022 U rine Albumin/Creatinine Ratio Result: A bnormal Last Done: 0 05/14/2023 Next Due: 0 05/13/2024 H emoglobin A1c Result: 5 .9 Last Done: 0 05/13/2023 Next Due: 0 05/12/2024 E KG Last Done: 0 05/23/2023 completed in office Next Due: 0 05/22/2024 * * Electronic signature of Saeed Tellez APRN on 01/20/2025 at 09:16 AM EST Sign off status: Pending * Provider: Naeem Tellez MSN, RN OPERATING ROOM, SENIOR PROGRAM PLANNER-C Date: 0 06/19/2024 Generated for Kar kessler/Elvira/eTransmitting on: 1 03/22/2024 09:16 AM EST History and Physical Notes * HPI (History of Present Illness) Category Sub-Category Detail Notes Category Not es Depression Screening PHQ-2 (2015 Edition) Little interest or pleasure in doing things?: Declined to specify Feeling down, depressed, or hopeless?: D eclined to specify Total Score: 0 Time Spent on Depression Screening: Number of mi nutes spent on screening test:: . COA-Care of Older Adults Functional Assessment H ow often does your physical health interfere with your daily activities?: Hearing: Vision: Pain Assessment/Controlled S ubstance Prescribing Are you currently experiencing pain of any kind?: Are you currently under pain management? : Fall Risk Assessment Have you fallen in the past year?: Do you worry about falling?: Do you feel unsteady when standing or wa lking?: Do you use any assistive devices?: Time up and Go Test (TUG): DME Do you use a DME company?: [employer] Cognitive Assessment Do you have any concern s about your memory?: Do any of your friends or family have an y concerns about your memory?: (Use MiniCog for patients 65 -84 yrs and SLUMS for patients >85 yrs in addition to above): . Activities of Daily Living ( ADL)/Instrumental ADL Current physical activity as compared to last year?: Do you require assistance with:: ____ Do you have leakage/incontinence issues? : Advance Care Planning Do you have Advanc ed Directives, Living Will, or Surrogate Decision Letter?: ___ Did the provider have conver sations with the patient regarding Advance Directives?: . Coordination of Care Providers and Specialists Do you have other providers/specialists?: TAPS 1 Screening TAPS 1 In the PAST 12 MONTHS, how often have you used any tobacco products?: In the PAST 12 MONTHS, how o ften have you had 5 or more drinks containing alcohol in one day? One standard drink is about 1 small glass of wine (5 oz), 1 beer (12 oz), or 1 single shot of liquor.: (Males Only) In the PAST 12 MONTHS, how o ften have you had 4 or more drinks containing alcohol in one day? One standard drink is about 1 small glass of wine (5 oz), 1 beer (12 oz), or 1 single shot of liquor.: (Females Only) In the PAST 12 MONTHS, how o ften have you used any drugs including marijuana, cocaine or crack, heroin, methamphetamine (crystal meth), hallucinogens, ecstasy/MDMA?: In the PAST 12 MONTHS, how o ften have you used any prescription medications just for the feeling, more than prescribed or that were not prescribed for you? Prescription medication that may be used this way: Opiate pain relievers (for example, OxyContin, Vicodin, Percocet, Methadone) Medications for anxiety or sleeping (for example, Xanax, Ativan, Klonopin) Medications for ADHD (for example, Adderall or Ritalin): If questions 2, 3, 4 or 5 ar e positive or patient is on opiates or BZDs please proceed to SUDS template.: . Time Spent on Alcohol Screening: Number of minut es spent on screening test:: .
--- OUTSIDE RECORDS SUMMARY | 2024-07-15 08:15 | XMS_ITS ---
[facility] Address [address] [facility] [address] [place], [place] [id number] Care Team Providers Care Yard Associate Name Role Phone Jordan Johnson Primary Care Provider Gricelda Huerta Unavailable [phone] Allergies Allergen (clinical drug ingredient) Drug/Non Drug Allergy documented on EMR Reaction Allergy Type Onset Date Status IVP DYE (uncoded) Unknown Allergy Ac tive Iodine Unknown Drug Allergy Active REASON FOR VISIT med check and Annual Wellness Visit, Needs labs & bone density screening Medications Medication SIG (Take, Route, Frequency, Duration) Notes Start Date End Date Status ICOSAPENT 1 G 2 CAP(S) ORALLY 2 TIMES A DAY; Duration: 90 DAYS *Please review for potential replacement for e-prescription and drug interaction check* 06/01/2022 Active Pregabalin 200 MG 1 cap(s) orally 2 times a day; Duration: 90 days 01/22/2024 Active Triamcinolone Acetonide 0.1 % 1 application do not rinse afterwards and avoid eating or drinking for 30 minutes Mouth/Throat Twice a day, prn 07/26/2023 Active Sucralfate 1 GM TAKE 1 TABLET BY MOUTH 4 TIMES DAILY BEFORE MEAL(S) AND AT BEDTIME; Duration: 30 Active Prolia 60 MG/ML 60 mg Subcutaneous every 6 months 07/30/2023 Active FLAX SEED 1000 MG DAILY *Please review for potential replacement for e-prescription and drug interaction check* Active Cinnamon 500 MG 2 cap(s) orally Active Zinc Acetate 50 MG 1 cap(s) orally once daily Active Docusate Sodium 100 MG 1 cap(s) orally 2 times a day Active Flonase Allergy Relief 50 MCG/ACT 1 spray in each nostril Nasally Once a day 07/26/2023 Active Vitamin E 400 UNIT 1 cap(s) orally once a day Active Sertraline HCl 100 MG 2 tab(s) orally once a day; Duration: 90 days Active Vitamin C 500 MG 1 tab(s) orally twice a day Active Vitamin B12 *Please review and pick correct strength-formulat ion from [employer] options. If intended option is not shown, discontinue and re-order from Quick Search* Active Ferrous Sulfate 325 (65 Fe) MG 1 tab(s) orally once a day; Duration: 90 days Active Vitamin D3 50 MCG (2000 UT) 2 tab orally once a day Active Glucosamine Chond MSM Formula - 2 tab orally BID Active Baclofen 10 MG 1 tab(s) orally 3 times a day; Duration: 90 days Active Omeprazole 40 MG 1 cap(s) orally once a day; Duration: 90 days Active Jardiance 10 MG 1 tablet Orally Once a day; Duration: 90 days 02/07/2024 Active Montelukast Sodium 10 MG 1 tab(s) orally once a day as needed; Duration: 90 days Active Lasix 20 MG 1 tablet Orally Once a day; Duration: 90 days 12/04/2023 Active Potassium Chloride ER 10 MEQ 1 cap(s) orally 2 times a day; Duration: 90 days Active CareTouch CPAP & BIPAP Hose 1 DIRECTED *Please review and pick correct strength-formulat ion from [employer] options. If intended option is not shown, discontinue and re-order from Quick Search* Active Icosapent Ethyl 1 GM 2 capsules with meals Orally Twice a day; Duration: 90 days 11/08/2022 Active Irbesartan 300 MG 1 tab(s) orally once a day; Duration: 90 days Active NIFEdipine ER 30 MG 1 tab(s) orally 2 times a day; Duration: 90 days Active Atorvastatin Calcium 20 MG 1 tablet Orally Once a day; Duration: 90 days Active Fenofibrate 145 MG 1 tablet Orally Once a day; Duration: 90 days Active Atenolol 25 MG 1 tab(s) orally once a day; Duration: 90 days Active Ofloxacin 0.3 % 1 gtt in each affected eye 4 times a day; Duration: 5 day(s) 05/17/2022 Not-Taking Immunizations Vaccine Route Administration Date Status Comme nts Prevnar (PCV20) IM Intramuscular 07/15/2024 Administered Problems Problem Type SNOMED Code ICD Code Onset Dates Problem Status W/U Status Risk Notes Problem Obese class II ([id number]) BMI 35.0-35.9,a dult (Z68.35) Active confirmed Vital Signs Blood pressure systolic 130 mm Hg 07/16/19 25 Blood pressure diastolic 80 mm Hg 025 Heart Rate 76 /min 07/15/2024 Height 60 in 07/15/2024 Weight 179.6 lbs 07/15/2024 BMI 35.07 kg/m2 07/15/2024 Encounters Encounter Location Date Provider Diagnosis [facility] [address] [place], [place] [id number] 07/15/2024 Gricelda Huerta Adult general medica l examination Z00.00 ; Essential hypertension I10 ; Type 2 diabetes mellitus without complication, without long-term current use of insulin E11.9 ; Gastroesophageal reflux disease, esophagitis presence not specified K21.9 ; Mixed hyperlipidemia E78.2 ; Mood disorder F39 ; Vitamin D deficiency E55.9 ; Iron deficiency anemia, unspecified iron deficiency anemia type D50.9 ; Seasonal allergic rhinitis, unspecified chronicity, unspecified trigger J30.2 ; Low back pain, unspecified M54.50 ; BMI 35.0-35.9,adult Z68.35 ; Osteoporosis M81.0 ; Hypokalemia E87.6 ; Bunion M21.619 ; Muscle spasm M62.838 ; Screening mammogram, encounter for Z12.31 ; Osteoporosis screening Z13.820 ; History of lumbar fusion Z98.1 and Mild obstructive sleep apnea G47.33 Assessments Encounter Date Diagnosis (ICD Code) Assessment Notes Treatment Notes Treatment Clinical Notes Section Notes 07/15/2024 Adult general medical examination (ICD-10 - Z00.00) Patient instructed to return to office Annually for Annual Wellness Visits to include annual screenings of Pain assessment, Functional Ability assessment, Cognitive Ability assessment, Fall Risk assessment, Depression screening and Bladder control screening. 07/15/2024 Essential hypertension (ICD-10 - I10) 07/15/2024 Type 2 diabetes mellitus without complication, without long-term current use of insulin (ICD-10 - E11.9) 07/15/2024 Gastroesophageal reflux disease, esophagitis presence not specified (ICD-10 - K21.9) 07/15/2024 Mixed hyperlipidemia (ICD-10 - E78.2) 07/15/2024 Mood disorder (ICD-10 - F39) 07/15/2024 Vitamin D deficiency (ICD-10 - E55.9) 07/15/2024 Iron deficiency anemia, unspecified iron deficiency anemia type (ICD-10 - D50.9) 07/15/2024 Seasonal allergic rhinitis, unspecified chronicity, unspecified trigger (ICD-10 - J30.2) 07/15/2024 Low back pain, unspecified (ICD-10 - M54.50) 07/15/2024 BMI 35.0-35.9,adult (ICD-10 - Z68.35) 07/15/2024 Osteoporosis (ICD-10 - M81.0) 07/15/2024 Hypokalemia (ICD-10 - E87.6) 07/15/2024 Bunion (ICD-10 - M21.619) 07/15/2024 Muscle spasm (ICD-10 - M62.838) 07/15/2024 Screening mammogram, encounter for (ICD-10 - Z12.31) 07/15/2024 Osteoporosis screening (ICD-10 - Z13.820) 07/15/2024 History of lumbar fusion (ICD-10 - Z98.1) 07/15/2024 Mild obstructive sleep apnea (ICD-10 - G47.33) Plan Of Treatment Medication Medication Name Sig Start Date Stop Date Notes Flonase Allergy Relief 50 MCG/ACT 1 spray in each nostril Nasally Once a day 07/26/2023 Sertraline HCl 100 MG 2 tab(s) orally on ce a day; Duration: 90 days Ferrous Sulfate 325 (65 Fe) MG 1 tab(s) orally once a day; Duration: 90 days Baclofen 10 MG 1 tab(s) orally 3 ti mes a day; Duration: 90 days Omeprazole 40 MG 1 cap(s) orally once a day; Duration: 90 days Jardiance 10 MG 1 tablet Orally Once a day; Duration: 90 days 02/07/2024 Montelukast Sodium 10 MG 1 tab(s) orally once a day as needed; Duration: 90 days Lasix 20 MG 1 tablet Orally Once a day; Duration: 90 days 12/04/2023 Potassium Chloride ER 10 MEQ 1 cap(s) or ally 2 times a day; Duration: 90 days Icosapent Ethyl 1 GM 2 capsules with frandy ls Orally Twice a day; Duration: 90 days 11/08/2022 Irbesartan 300 MG 1 tab(s) orally once a day; Duration: 90 days NIFEdipine ER 30 MG 1 tab(s) orally 2 ti mes a day; Duration: 90 days Atorvastatin Calcium 20 MG 1 tablet Oral ly Once a day; Duration: 90 days Fenofibrate 145 MG 1 tablet Orally Once a day; Duration: 90 days Atenolol 25 MG 1 tab(s) orally once a day; Duration: 90 days Treatment Notes Assessment Notes Adult general medical examination Patien t instructed to return to office Annually for Annual Wellness Visits to include annual screenings of Pain assessment, Functional Ability assessment, Cognitive Ability assessment, Fall Risk assessment, Depression screening and Bladder control screening. Pending Test Test Name Order Date DEXA Hip and Spine 07/15/2024 Mammogram 07/15/2024 Next Appt Details Follow Up: As directed by MD , Reason: Medications Administered Medication Instructions Date of Administration Dosage Notes PROLIA 07/15/2024 1 mL Progress Notes * Perri APPIAHOB: 3 (84 yo F)Acc No.[id number]:07/15/2024 Annual Wellness Visit Patient: Mariely RODRIGUEZ Provider: NEHEMIAH Eddy :1940 A ge:84 Y S ex:Female Date:07/15/2024 Address:[address] [place], [place] [id number] Pcp:Jordan Johnson Subjective: * Chief Complaints: * 1 . med check and Annual Wellness Visit. 2. Needs labs & bone density screening. * HPI: H PI: Patient is here today for a scheduled check up and a Medicare Annual Wellness Visit. Pt sts she is doing well and has no concerns at this time. * ROS: O PTHALMOLOGY: Negative for d enies issues with vision. * Medical History: H ypertension, Arthritis, Hyperlipidemia, Type 2 diabetes, Gastroesophageal reflux disease, esophagitis presence not specified, Low back pain, Charcot foot, 2018, treated by Dr. Pawsat, Has a primary MD in [place], 12/2021 [facility]. * Surgical History: c holecystectomy , x2 , hysterectomy , knee replacement x4 , crushed elbow repair , carpal tunnel repair , ganglion cyst removal R wrist , bilateral breast reducation 08/15/2009, Back Surgery-rods and screws placed in L4 and L5 2009, Appendectomy , Hemorrhoidectomy X2 , colonoscopy 2015, Pain Pump - Dilaudid 05/22/2017, Right hip replacement- [facility] 09/23/2019, right shoulder replacement - Dr Douglass - [place] 12/07/2020, Spinal surgery 03/2021, Left ankle repair 12/19/2021. * Hospitalization/Major Diagno stic Procedure: c hild 1962, 1964, 1968, 73,73, HTN-[facility] 05/2015, Elbow Repair 1984, [facility] 04/2020, LT Posterior tibial tendon dysfunction with surgical intervention by Dr. Gonzalez at [facility] and [facility] in [place], [place] 12/19-. * Family History: F ather: [...] *Please review and pick correct strength-formulation from [employer] options. If intended option is not shown, [...] *Please review and pick correct strength-formulation from [employer] options. If intended option is not shown, [...] for e-prescription and drug interaction check*, Taking Sucralfate 1 GM Tablet TAKE 1 TABLET BY MOUTH 4 TIMES DAILY BEFORE MEAL(S) AND AT BEDTIME , Taking Triamcinolone Acetonide 0.1 % Paste 1 application do not rinse afterwards and avoid eating or drinking for 30 minutes Mouth/Throat Twice a day, prn , Taking Flonase Allergy Relief 50 MCG/ACT Suspension 1 spray in each nostril Nasally Once a day , Taking Ferrous Sulfate 325 (65 Fe) MG Tablet 1 tab(s) orally once a day , Taking Sertraline HCl 100 MG Tablet 2 tab(s) orally once a day , Taking Baclofen 10 MG Tablet 1 tab(s) orally 3 times a day , Taking Atenolol 25 MG Tablet 1 tab(s) orally once a day , Taking Irbesartan 300 MG Tablet 1 tab(s) orally once a day , Taking Omeprazole 40 MG Capsule Delayed Release 1 cap(s) orally once a day , Taking Pregabalin 200 MG Capsule 1 cap(s) orally 2 times a day , Taking Jardiance 10 MG Tablet 1 tablet Orally Once a day , Taking Montelukast Sodium 10 MG Tablet 1 tab(s) orally once a day as needed , Taking Lasix 20 MG Tablet 1 tablet Orally Once a day , Taking Potassium Chloride ER 10 MEQ Capsule Extended Release 1 cap(s) orally 2 times a day , Taking Icosapent Ethyl 1 GM Capsule 2 capsules with meals Orally Twice a day , Taking Atorvastatin Calcium 20 MG Tablet 1 tablet Orally Once a day , Taking NIFEdipine ER 30 MG Tablet Extended Release 24 Hour 1 tab(s) orally 2 times a day , Taking Prolia 60 MG/ML Solution Prefilled Syringe 60 mg Subcutaneous every 6 months , Taking Fenofibrate 145 MG Tablet 1 tablet Orally Once a day , Not-Taking Ofloxacin 0.3 % Solution 1 gtt in each affected eye 4 times a day , Medication List reviewed and reconciled with the patient * Allergies: I ROAD MONKEY DYE, Iodine. Objective: * Vitals: W t: 179.6, Temp: 98.5, BP: 130/80, HR: 76, Nurse: riley, Ht: 60, BMI:35.07. * Examination: G eneral Examination: General Appearance: N AD. H EENT: u nremarkable.?Oral cavity: n o lesions, mucosa moist and WNL, no erythema. N silvana: s upple, no lymphadenopathy. C hest: n ormal shape and expansion. H eart: R SR. L ungs: c lear to auscultation. A bdomen: b owel sounds present , soft and nontender. N eurologic Exam: I ntact, gait normal. S kin: n ormal, no rash. P eripheral pulses: n ormal (2+) bilaterally. E xtremities: n o leg edema. * Physical Examination: G ENERAL: Pain Assessment: P ain level: 4, on a scale of 0 to 10 (10 being extreme pain). F unctional Status Assessment: P atient response to how often physical health interferes with daiy activities: Frequently Able to perform ADLs-including meal preparation, grocery shopping, housework, laundry, taking medications, or handling finances. Cognitive Status: Alert and oriented. Ambulation Status: Fully ambulatory. F all Risk Assessment: I ndependant in ambulation, adequate lighting in home. Patient has NOT fallen but has had trouble walking within the past 12 months. D epression Screening: D enies depressed mood or anxiety. Describes emotional health as: calm/peaceful. B ladder Control Screening: S mall problems. Assessment: * Assessment: 1. A dult general medical examination - Z00.00 (Primary) 2 . E ssential hypertension - I10 3 . T ype 2 diabetes mellitus without complication, without long-term current use of insulin - E11.9 4 . G astroesophageal reflux disease, esophagitis presence not specified - K21.9 5 . M ixed hyperlipidemia - E78.2 ? 6 . M ood disorder - F39 7 . V itamin D deficiency - E55.9 ? 8 . I devang deficiency anemia, unspecified iron deficiency anemia type - D50.9 9. S easonal allergic rhinitis, unspecified chronicity, unspecified trigger - J30.2 ? 1 0. L ow back pain, unspecified - M54.50 1 1. B NV 35.0-35.9,adult - Z68.35 1 2. O steoporosis - M81.0 1 3. H ypokalemia - E87.6 1 4. B union - M21.619 1 5. M uscle spasm - M62.838 ? 1 6. S creening mammogram, encounter for - Z12.31 1 7. O steoporosis screening - Z13.820 1 8. H istory of lumbar fusion - Z98.1 1 9. M ild obstructive sleep apnea - G47.33 Plan: * Treatment: 2. E ssential hypertension Refill NIFEdipine ER Tablet Extended Release 24 Hour, 30 MG, 1 tab(s), orally, 2 times a day, 90 days, 180 Tablet, Refills 3; R efill Irbesartan Tablet, 300 MG, 1 tab(s), orally, once a day, 90 days, 90 Tablet, Refills 3; R efill Atenolol Tablet, 25 MG, 1 tab(s), orally, once a day, 90 days, 90 Tablet, Refills 3; R efill Lasix Tablet, 20 MG, 1 tablet, Orally, Once a day, 90 days, 90 Tablet, Refills 3. 3. T ype 2 diabetes mellitus without complication, without long-term current use of insulin Refill Jardiance Tablet, 10 MG, 1 tablet, Orally, Once a day, 90 days, 90 Tablet, Refills 3. ? 4. G astroesophageal reflux disease, esophagitis presence not specified Refill Omeprazole Capsule Delayed Release, 40 MG, 1 cap(s), orally, once a day, 90 days, 90 Capsule, Refills 3. 5. M ixed hyperlipidemia Refill Fenofibrate Tablet, 145 MG, 1 tablet, Orally, Once a day, 90 days, 90 Tablet, Refills 3;?Refill Atorvastatin Calcium Tablet, 20 MG, 1 tablet, Orally, Once a day, 90 days, 90 Tablet, Refills 3; R efill Icosapent Ethyl Capsule, 1 GM, 2 capsules with meals, Orally, Twice a day, 90 days, 360, Refills 3. 6. M ood disorder Refill Sertraline HCl Tablet, 100 MG, 2 tab(s), orally, once a day, 90 days, 180, Refills 3. ? 7. I devang deficiency anemia, unspecified iron deficiency anemia type Refill Ferrous Sulfate Tablet, 325 (65 Fe) MG, 1 tab(s), orally, once a day, 90 days, 90, Refills 3. 8. S easonal allergic rhinitis, unspecified chronicity, unspecified trigger Refill Montelukast Sodium Tablet, 10 MG, 1 tab(s), orally, once a day as needed, 90 days, 90, Refills 3; R efill Flonase Allergy Relief Suspension, 50 MCG/ACT, 1 spray in each nostril, Nasally, Once a day, 1, Refills 11. 9. H ypokalemia Refill Potassium Chloride ER Capsule Extended Release, 10 MEQ, 1 cap(s), orally, 2 times a day, 90 days, 180, Refills 3. 10. M uscle spasm Refill Baclofen Tablet, 10 MG, 1 tab(s), orally, 3 times a day, 90 days, 270 Tablet, Refills 3.? 11. S creening mammogram, encounter for Stevie lr: Mammogram 12.?Osteoporosis screening?Imaging: DEXA Hip and Spine* Mery Molina 07/15/2024 04:10 :39 PM > faxed to [facility] Scheduling * Immunizations: Prevnar (PCV20) : 0.5 mL (Route: Intramuscular) given by RILEY Brewster on Right Deltoid (Adult general medical examination) * Therapeutic Injections: Prolia : 1 mL (Route: Intramuscular) given by RILEY Brewster on left deltoid (Adult general medical examination) * Procedure Codes: G 0438 ANNUAL WELLNES VST; PERSNL PPS INIT, G2211 Complex e/m visit add on, 1090F PRES/ABSN URINE INCON ASSESS, 3288F FALL RISK ASSESSMENT DOCD, 1170F FXNL STATUS ASSESSED, 1159F MED LIST DOCD IN RCRD, 1003F LEVEL OF ACTIVITY ASSESS, 1036F TOBACCO NON-USER, 30350 ADMINISTRATION OF INJECTION, G8510 NEG SCR Depression PT NOT ELIG F/U/PLN DOC, 1125F AMNT PAIN NOTED PAIN PRSNT, G8752 MOST RECENT SYSTOLIC BP < 140MM HG, G8754 MOST RECENT DIASTOLIC BP < 90MM HG * Preventive Medicine: Counseling: E motional health: E ncouraged to try connecting with family or friends to boost mood. B ladder control: D iscussed ways to control/manage leakage of urine. Exercise: A dvised to start, increase or maintain level of exercise/physical activity. I njury prevention: D iscussed fall prevention. Discussed need for cane/walker. Potential trip hazards discussed. Immunizations: P neumococcal r ecommended. I nfluenza r ecommended seasonally. Screening / Special Tests: M ammogram R ecent history:01/20/2024, negative.?Colonoscopy R ecent history:, excluded due to age. B one mineral Density R ecent history:01/02/2023, osteoporosis, recommended. D iabetic Retinal Eye Exam R ecent history:within last year. N ephrology History R ecent history:, GFR and urine M/A ordered today. * Follow Up: A s directed by MD * Images: Billing Information: * Visit Code: 43040 Office Visit, Est Pt., Level 3. Modifiers: 25 * Procedure Codes: G0438 ANNUAL WELLNES VST; PERSNL PPS INIT. G2211 Complex e/m visit add on. 1090F PRES/ABSN URINE INCON ASSESS. 3288F FALL RISK ASSESSMENT DOCD. 1170F FXNL STATUS ASSESSED. 1159F MED LIST DOCD IN RCRD. 1003F LEVEL OF ACTIVITY ASSESS. 1036F TOBACCO NON-USER. 38028 ADMINISTRATION OF INJECTION. G8510 NEG SCR Depression PT NOT ELIG F/U/PLN DOC. 1125F AMNT PAIN NOTED PAIN PRSNT. G8752 MOST RECENT SYSTOLIC BP < 140MM HG. G8754 MOST RECENT DIASTOLIC BP < 90MM HG. * Electronic signature of NEHEMIAH Glez on 01/20/2025 at 09:18 AM EST Sign off status: Pending * Provider: NEHEMIAH Eddy Date: 0 07/15/2024 Generated for Printi ng/Farjg/eTransmitting on: 1 03/22/2024 09:18 AM EST History and Physical Notes * HPI (History of Present Illness) Category Sub-Category Detail Notes Category Not es HPI Patient is here today for [facility] and a Medicare Annual Wellness Visit. Pt sts she is doing well and has no concerns at this time Physical Examination Category Sub-Category Detail Notes Section Note s GENERAL Pain Assessment: Pain level: 4, on a scale of 0 to 10 (10 being extreme pain) Functional Status Assessment: Patient re sponse to how often physical health interferes with daiy activities: FrequentlyAble to perform ADLs-including meal preparation, grocery shopping, housework, laundry, taking medications, or handling finances.Cognitive Status: Alert and oriented.Ambulation Status: Fully ambulatory Fall Risk Assessment: Independant in amb ulation, adequate lighting in home. Patient has NOT fallen but has had trouble walking within the past 12 months Depression Screening: Denies depressed m ood or anxiety. Describes emotional health as: calm/peaceful Bladder Control Screening: Small problem s Examination Category Sub-Category Detail Notes Category Not es General Examination HEENT: unremarkable Heart: RSR Lungs: clear to auscultatio n Abdomen: bowel sounds present , soft and nontender Extremities: no leg edema General Appearance: NAD Skin: normal, no rash Neurologic Exam: Intact, gait normal Neck: supple, no lymphaden opathy Oral cavity: no lesions, mucosa m oist and WNL, no erythema Peripheral pulses: normal (2+) bilatera lly Chest: normal shape and exp ansion
--- OUTSIDE RECORDS SUMMARY | 2024-11-30 10:41 | XMS_ITS ---
Author Organization [facility] Address [address] [place] [address] Care Team Providers Care Bus Transportation Manager Name Role Phone Anna Lim Primary Care Provider Yenny Tellez [phone] REASON FOR VISIT *Medication Refill Medications Medication SIG (Take, Route, Fr equency, Duration) Notes Start Date End Date Status Sertraline HCl 100 mg 2 tabs orally once a day; Duration: 90 days 01/11/2016 Active Jardiance 10 MG 1 tablet Orally daniel y; Duration: 90 days Active Atenolol 25 MG 1 tab Orally daily; Duration: 90 days 05/02/2010 Active Encounters Encounter Location Date Provider Diagnosis [facility] [address] [place] [address] 11/30/2024 Yenny Tellez Essential (primary) hypertension I10 and Major depressive disorder, recurrent, mild F33.0 Assessments Encounter Date Diagnosis (ICD Code) Assessment Notes Treatment Notes Treatment Clinical Notes Section Notes 11/30/2024 Essential (primary) hypertension (ICD-10 - I10) 11/30/2024 Major depressive disorder, recurrent, mild (ICD-10 - F33.0) Plan Of Treatment Medication Medication Name Sig Start Date Stop Date Notes Sertraline HCl 100 mg 2 tabs orally once a day; Duration: 90 days 01/11/2016 Jardiance 10 MG 1 tablet Orally daniel y; Duration: 90 days Atenolol 25 MG 1 tab Orally daily; Duration: 90 days 05/02/2010 Progress Notes * YUMI APPIAHB: [birth year] (84 yo F)Acc No.[id number]:11/30/2024 Patient: YUMI RODRIGUEZ :1940 A ge:84 Y S ex:Female Address:[address] [place] [id number] * Refills Refill Atenolol Tablet, 25 MG, Orally, 90 Tablet, 1 tab, daily, 90 days, Refills=1 Refill Sertraline HCl tablet, 100 mg, orally, 180 Tablet, 2 tabs, once a day, 90 days, Refills=1 Refill Jardiance Tablet, 10 MG, Orally, 90 Tablet, 1 tablet, daily, 90 days, Refills=1 Subjective: * Chief Complaints: * * Medication Refill * Medical History: * Surgical History: * Hospitalization/Major Diagno stic Procedure: * Medications: Objective: * Vitals: * Physical Examination: Assessment: * Assessment: 1. E ssential (primary) hypertension - I10 2 . M ajor depressive disorder, recurrent, mild - F33.0 Plan: * Treatment: 2. M ajor depressive disorder, recurrent, mild Refill Sertraline HCl tablet, 100 mg, 2 tabs, orally, once a day, 90 days, 180 Tablet, Refills 1.? 3. O thers Refill Jardiance Tablet, 10 MG, 1 tablet, Orally, daily, 90 days, 90 Tablet, Refills 1. * Procedure Codes: * true * Date: Generated for Kar kessler/Elvira/Cassiasmitting on: 03/22/2024 09:17 AM EST
--- OUTSIDE RECORDS SUMMARY | 2024-12-02 09:30 | XMS_ITS ---
[facility] Address [address] [place] [phone] Care Team Providers Care Fuel Storage Technician Name Role Phone Jordan Johnson Primary Care Provider Gricelda Huerta Unavailable [phone] Allergies Allergen (clinical drug ingredient) Drug/Non Drug Allergy documented on EMR Reaction Allergy Type Onset Date Status IVP DYE (uncoded) Unknown Allergy Ac tive Iodine Unknown Drug Allergy Active Reason For Referral Diagnosis 1 Jerking (R25.3) [facility] Referring Provider First Name Gricelda Referring Provider Last Name Deanna Referring Provider Speciality Physician Site Engineer Referred Provider Specialty Neurology General Notes Mery Molina 2024 03:28:49 PM > faxed to [facility] Neurology, Mery Molina 12/08/2024 09:42:14 AM > 12/14/2024 at 10:00am Referral Priority Routine REASON FOR VISIT Discuss Referral to Neurology Medications Medication SIG (Take, Route, Frequency, Duration) Notes Start Date End Date Status Jardiance 10 MG 1 tablet Orally Once a day; Duration: 90 days 02/07/2024 Active Baclofen 10 MG 1 tab(s) orally 3 times a day; Duration: 90 days Active Omeprazole 40 MG 1 cap(s) orally once a day; Duration: 90 days Active Ferrous Sulfate 325 (65 Fe) MG 1 tab(s) orally once a day; Duration: 90 days Active Sertraline HCl 100 MG 2 tab(s) orally once a day; Duration: 90 days Active Flonase Allergy Relief 50 MCG/ACT 1 spray in each nostril Nasally Once a day 07/26/2023 Active Montelukast Sodium 10 MG 1 tab(s) orally once a day as needed; Duration: 90 days Active Potassium Chloride ER 10 MEQ 1 cap(s) orally 2 times a day; Duration: 90 days Active Icosapent Ethyl 1 GM 2 capsules with meals Orally Twice a day; Duration: 90 days 11/08/2022 Active Lasix 20 MG 1 tablet Orally Once a day; Duration: 90 days 12/04/2023 Active Linzess 72 MCG 1 capsule at least 30 minutes before the first meal of the day on an empty stomach Orally Once a day; Duration: 30 days 12/02/2024 Active Atenolol 25 MG 1 tab(s) orally once a day; Duration: 90 days Active Irbesartan 300 MG 1 tab(s) orally once a day; Duration: 90 days Active Atorvastatin Calcium 20 MG 1 tablet Orally Once a day; Duration: 90 days Active Fenofibrate 145 MG 1 tablet Orally Once a day; Duration: 90 days Active Triamcinolone Acetonide 0.1 % 1 application do not rinse afterwards and avoid eating or drinking for 30 minutes Mouth/Throat Twice a day, prn 07/26/2023 Active NIFEdipine ER 30 MG 1 tab(s) orally 2 times a day; Duration: 90 days Active Prolia 60 MG/ML 60 mg Subcutaneous every 6 months 07/30/2023 Active Sucralfate 1 GM TAKE 1 TABLET BY MOUTH 4 TIMES DAILY BEFORE MEAL(S) AND AT BEDTIME; Duration: 30 Active ICOSAPENT 1 G 2 CAP(S) ORALLY 2 TIMES A DAY; Duration: 90 DAYS *Please review for potential replacement for e-prescription and drug interaction check* 06/01/2022 Active FLAX SEED 1000 MG DAILY *Please review for potential replacement for e-prescription and drug interaction check* Active Cinnamon 500 MG 2 cap(s) orally Active Vitamin B12 *Please review and pick correct strength-formulat ion from Beyond the Rack options. If intended option is not shown, discontinue and re-order from Quick Search* Active Zinc Acetate 50 MG 1 cap(s) orally once daily Active Docusate Sodium 100 MG 1 cap(s) orally 2 times a day Active Vitamin E 400 UNIT 1 cap(s) orally once a day Active Vitamin D3 50 MCG (2000 UT) 2 tab orally once a day Active Glucosamine Chond MSM Formula - 2 tab orally BID Active CareTouch CPAP & BIPAP Hose 1 DIRECTED *Please review and pick correct strength-formulat ion from Medispan options. If intended option is not shown, discontinue and re-order from Quick Search* Active Vitamin C 500 MG 1 tab(s) orally twice a day Active Ofloxacin 0.3 % 1 gtt in each affected eye 4 times a day; Duration: 5 day(s) 05/17/2022 Not-Taking Pregabalin 200 MG 1 cap(s) orally 2 times a day; Duration: 90 days 07/17/2024 Active Problems Problem Type SNOMED Code ICD Code Onset Dates Problem Status W/U Status Risk Notes Problem Seasonal allergy (013112799) Seasonal allergies (J30.2) Active confirmed Vital Signs Blood pressure systolic 130 mm Hg 12/03/19 25 Blood pressure diastolic 82 mm Hg 025 Heart Rate 73 /min 12/02/2024 Height 60 in 12/02/2024 Weight 178.6 lbs 12/02/2024 BMI 34.88 kg/m2 12/02/2024 Encounters Encounter Location Date Provider Diagnosis [facility] [address] [facility] [address] [place] [phone] 12/02/2024 Gricelda Huerta Chronic constipation K59.09 ; Jerking R25.3 and Seasonal allergies J30.2 Assessments Encounter Date Diagnosis (ICD Code) Assessment Notes Treatment Notes Treatment Clinical Notes Section Notes 12/02/2024 Chronic constipation (ICD-10 - K59.09) 12/02/2024 Jerking (ICD-10 - R25.3) Patient states she has periods of jerking movements with her ams and legs and would like to see neurology. 12/02/2024 Seasonal allergies (ICD-10 - J30.2) Plan Of Treatment Medication Medication Name Sig Start Date Stop Date Notes Flonase Allergy Relief 50 MCG/ACT 1 spray in each nostril Nasally Once a day 07/26/2023 Linzess 72 MCG 1 capsule at least 3 0 minutes before the first meal of the day on an empty stomach Orally Once a day; Duration: 30 days 12/02/2024 Treatment Notes Assessment Notes Jerking Patient states she h as periods of jerking movements with her ams and legs and would like to see neurology. Referrals Referral Date Details 12/02/2024 12/02/2024 Next Appt Details Follow Up: with neurology, R bridget: Progress Notes * Perri APPIAHOB: 3 (84 yo F)Acc No.[id number]:12/02/2024 Progress Notes Patient: Mariely RODRIGUEZ Provider: NEHEMIAH Eddy :1940 A ge:84 Y S ex:Female Date:12/02/2024 Address:[address] [place], [place] [id number] Pcp:Jordan Johnson Subjective: * Chief Complaints: * 1 . Discuss Referral to Neurology. * HPI: N eurology: Pt states she is supposed to see Dr. Funk but before Dr. Funk will see her she needs a referral for tremor. She also needs a rx for liness for constipation. * ROS: D ERMATOLOGY: no R tolu. [...] Dr. Duval, Has a primary MD in [place], 12/2021 [facility]. * Surgical History: c holecystectomy , x2 , hysterectomy , knee replacement x4 , crushed elbow repair , carpal tunnel repair , ganglion cyst removal R wrist , bilateral breast reducation 08/15/2009, Back Surgery-rods and screws placed in L4 and L5 2009, Appendectomy , Hemorrhoidectomy X2 , colonoscopy 2015, Pain Pump - Dilaudid 05/22/2017, Right hip replacement- [facility] 09/23/2019, right shoulder replacement - Dr Douglass - [place] 12/07/2020, Spinal surgery 03/2021, Left ankle repair 12/19/2021. * Hospitalization/Major Diagno stic Procedure: c hild 1962, 1964, 1968, 71,73, HTN-[facility] 05/2015, Elbow Repair 1984, [facility] 04/2020, LT Posterior tibial tendon dysfunction with surgical intervention by Dr. Gonzalez at [facility] in [place], [place] 12/19-. * Family History: F ather: 96 yrs, glaucoma, CHF, thyroid problems, enlarged prostate. M other: . 1 brother(s) , 8 sister(s) . 2 son(s) , 2 daughter(s) - healthy. . * Social History: C URRENT TOBACCO USE: No . C affeine: yes, frequency:coffee-daily. Exercise: no. Marital Status: . Past smoking status: no. Recreational drug use: no. Alcohol: No. * Medications: T aking CareTouch CPAP & BIPAP Hose MACHINE AND SUPPLIES 1 DIRECTED , Notes to Pharmacist: *Please review and pick correct strength-formulation from Preospan options. If intended option is not shown, [...] *Please review and pick correct strength-formulation from Preospan options. If intended option is not shown, [...] Mouth/Throat Twice a day, prn , Taking Prolia 60 MG/ML Solution Prefilled Syringe 60 mg Subcutaneous every 6 months , Taking NIFEdipine ER 30 MG Tablet Extended Release 24 Hour 1 tab(s) orally 2 times a day , Taking Irbesartan 300 MG Tablet 1 tab(s) orally once a day , Taking Atenolol 25 MG Tablet 1 tab(s) orally once a day , Taking Fenofibrate 145 MG Tablet 1 tablet Orally Once a day , Taking Atorvastatin Calcium 20 MG Tablet 1 tablet Orally Once a day , Taking Icosapent Ethyl 1 GM Capsule 2 capsules with meals Orally Twice a day , Taking Potassium Chloride ER 10 MEQ Capsule Extended Release 1 cap(s) orally 2 times a day , Taking Lasix 20 MG Tablet 1 tablet Orally Once a day , Taking Montelukast Sodium 10 MG Tablet 1 tab(s) orally once a day as needed , Taking Jardiance 10 MG Tablet 1 tablet Orally Once a day , Taking Omeprazole 40 MG Capsule Delayed Release 1 cap(s) orally once a day , Taking Baclofen 10 MG Tablet 1 tab(s) orally 3 times a day , Taking Sertraline HCl 100 MG Tablet 2 tab(s) orally once a day , Taking Ferrous Sulfate 325 (65 Fe) MG Tablet 1 tab(s) orally once a day , Taking Flonase Allergy Relief 50 MCG/ACT Suspension 1 spray in each nostril Nasally Once a day , Taking Pregabalin 200 MG Capsule 1 cap(s) orally 2 times a day , Not-Taking Ofloxacin 0.3 % Solution 1 gtt in each affected eye 4 times a day , Medication List reviewed and reconciled with the patient * Allergies: I VERTICAL BORER DYE, Iodine. Objective: * Vitals: W t: 178.6, Temp: 98.3, BP: 130/82, HR: 73, Nurse: ORVILLE, Ht: 60, BMI:34.88. * Examination: G eneral Examination: General Appearance: N AD. H EENT: u nremarkable.?Oral cavity: n o lesions, mucosa moist and WNL, no erythema. N silvana: s upple, no lymphadenopathy. C hest: n ormal shape and expansion. H eart: R SR. L ungs: c lear to auscultation. A bdomen: b owel sounds present, soft and nontender. N eurologic Exam: I ntact, gait normal. S kin: n ormal, no rash. P eripheral pulses: n ormal (2+) bilaterally. E xtremities: n o leg edema. Assessment: * Assessment: 1. C hronic constipation - K59.09 (Primary) 2 . Rony whitmore - R25.3 3 . S easonal allergies - J30.2 Plan: * Treatment: 2. Rony haim Notes: Patient states she has periods of jerking movements with her ams and legs and would like to see neurology. Referral To:Neurology Reason: 3. S easonal allergies Refill Flonase Allergy Relief Suspension, 50 MCG/ACT, 1 spray in each nostril, Nasally, Once a day, 1, Refills 11. * Procedure Codes: G 2211 Complex e/m visit add on, 1036F TOBACCO NON-USER, G8783 BP SCR PRFRM RCMDD DEFIND SCR INTVL, G8752 MOST RECENT SYSTOLIC BP < 140MM HG, G8754 MOST RECENT DIASTOLIC BP < 90MM HG, 3075F SYST BP GE 130 - 139MM HG, 3079F DIAST BP 80-89 MM HG * Follow Up: w [facility] neurology * Images: Billing Information: * Visit Code: 85576 Office Visit, Est Pt., Level 4. * Procedure Codes: G2211 Complex e/m visit add on. 1036F TOBACCO NON-USER. G8783 BP SCR PRFRM RCMDD DEFIND SCR INTVL. G8752 MOST RECENT SYSTOLIC BP < 140MM HG. G8754 MOST RECENT DIASTOLIC BP < 90MM HG. 3075F SYST BP GE 130 - 139MM HG. 3079F DIAST BP 80-89 MM HG. * Electronic signature of NEHEMIAH Glez on 01/20/2025 at 09:17 AM EST Sign off status: Pending * Provider: NEHEMIAH Eddy Date: 0 12/02/2024 Generated for Kar kessler/Elvira/eTransmitting on: 1 03/22/2024 09:17 AM EST History and Physical Notes * HPI (History of Present Illness) Category Sub-Category Detail Notes Category Not es Neurology Pt states she i s supposed to see Dr. Funk but before Dr. Funk will see her she needs a referral for tremor. She also needs a rx for liness for constipation. Examination Category Sub-Category Detail Notes Category Not [...] lly Chest: normal shape and exp ansion Consultation Request Notes Referral Date Referring Provider Referred Provider Not ngoc 12/02/2024 Gricelda Huerta ,
--- OUTSIDE RECORDS SUMMARY | 2024-12-16 08:22 | XMS_ITS ---
Author Organization [facility] Address [address] [facility] [address] [id number] Care Team Providers Care Technical Specialist Name Role Phone Yordan Johnsonian Primary Care Provider Gricelda Huerta [phone] REASON FOR VISIT Message Encounters Encounter Location Date Provider Diagnosis [facility] [address] [facility] [address] [place] [id number] 12/16/2024 Gricelda Huerta Abnormal TSH R94.6 Assessments Encounter Date Diagnosis (ICD Code) Assessment Notes Treatment Notes Treatment Clinical Notes Section Notes 12/16/2024 Abnormal TSH (ICD-10 - R94.6) Plan Of Treatment Pending Test Test Name Order Date Thyroid Stimulating Hormone (TSH) 2024 T4 12/16/2024 Thyroid auto antibodies 12/16/2024 Progress Notes * Perri APPIAHOB: 3 (84 yo F)Acc No.[id number]:12/16/2024 Patient: Mariely RODRIGUEZ :1940 A ge:84 Y S ex:Female Address:[address] [place] [id number] Subjective: * Chief Complaints: * M essage * Medical History: * Surgical History: * Hospitalization/Major Diagno stic Procedure: * Medications: Objective: * Vitals: * Physical Examination: Assessment: * Assessment: 1. A bnormal TSH - R94.6 Plan: * Treatment: * Procedure Codes: * true * Date: Generated for Printi ng/Faxing/eTransmitting on: 1 03/22/2024 09:18 AM EST
--- OUTSIDE RECORDS SUMMARY | 2024-12-25 09:15 | XMS_ITS ---
Author Organization [facility] Address [address] [place], [place] [id number] Care Team Providers Care Industrial Analyst Name Role Phone Yordan Johnsonian Primary Care Provider [phone] Gricelda Huerta Unavailable [phone] Allergies Allergen (clinical drug ingredient) Drug/Non Drug Allergy documented on EMR Reaction Allergy Type Onset Date Status IVP DYE (uncoded) Unknown Allergy Ac tive Iodine Unknown Drug Allergy Active Results Component Value Reference Range Notes CBC Venipuncture (in house) Reviewed date:12/25/2024 04:39:57 PM Interpretation: Performing Lab: Notes/Report: wbc 6.1 3.5 - 10 lymph 26.9 15 - 50 mid 6.9 2 - 15 gran 66.2 35 - 80 rbc 4.69 3.5 - 5.5 hgb 13.6 11.5 - 16.5 hct 40.8 35 - 55 mcv 87.0 75 - 100 mch 29.1 25 - 35 mchc 33.5 31 - 38 platlet 242 100 - 400 P-Comprehensive Metabolic Pa katy (CMP) Reviewed date:12/30/2024 10:07:41 AM Interpretation:Glu 111, BUN 28 Performing Lab: Notes/Report: Test performed by [facility] [address] [place] [address] , [address], [place] [address] Satish Herrera MD, Career Guidance Technician CLIA: [id number] Sodium 141 135-145 mmol/L Potassium 4.1 3.5-5.3 mmol/L Chloride 98 97-108 mmol/L CO2 30 20-32 mmol/L Glucose 111 65-99 mg/dL BUN 28 8-23 mg/dL Creatinine 0.87 0.50-1.00 mg/dL Calcium 9.8 8.6-10.4 mg/dL eGFR by Creatinine 66 >59 mL/min/1.73m2 Protein 7.1 6.0-8.3 g/dL Albumin 4.6 3.5-5.3 g/dL Alkaline Phosphatase 40 35-121 IU/L ALT (SGPT) 17 <5-47 IU/L AST (SGOT) 25 <5-40 IU/L Bilirubin, Total 0.3 <0.2-1.2 mg/dL A/G Ratio 1.8 1.1-2.5 P-T4 Free (thyroxine) Reviewed date:12/30/2024 10:07:41 AM Interpretation:Normal Performing Lab: Notes/Report: Test performed by [facility] [address] [place] [address] , [place] [address] Satish Herrera MD, Career Guidance Technician CLIA: [id number] Thyroxine Free (free T4) 1.25 0.86-1.76 ng/dL P-Magnesium Reviewed date:12/30/2024 10:07:41 AM Interpretation:Normal Performing Lab: Notes/Report: Test performed by [facility] [address] , [facility] [place] [address] Satish Herrera MD, Career Guidance Technician CLIA: [id number] Magnesium 1.9 1.6-2.4 mg/dL P-Phosphorus Reviewed date:12/30/2024 10:07:41 AM Interpretation:Normal Performing Lab: Notes/Report: Test performed by [facility] [address] [place] [address] , [address], [place] [address] Satish Herrera MD, Career Guidance Technician CLIA: [id number] Phosphorus 4.0 2.5-4.5 mg/dL P-Thyroid Antibody Panel (TA BS) Reviewed date:12/30/2024 10:07:41 AM Interpretation:Normal Performing Lab: Notes/Report: Test performed by [facility] [address] [place] [address] , [place] [address] Satish Herrera MD, Career Guidance Technician CLIA: [id number] Thyroid Peroxidase Antibody 14 <9-34 IU/mL An elevated Thyroid Peroxidase Antibody should not be used alone to make the diagnosis of autoimmune thyroid disease. A result of <34 IU/mL does not definitively rule out the possibility of autoimmune thyroid disease. Thyroglobulin Antibody 19.9 <10-115.0 IU/mL The test is performed by the Elida ECLIA methodology. Values obtained with different assay methods or kits cannot be directly compared. P-TSH Reviewed date:12/30/2024 10:07:41 AM Interpretation:Normal Performing Lab: Notes/Report: Test performed by [facility] [address] , [place] [address] Satish Herrera MD, Career Guidance Technician CLIA: [id number] TSH 1.83 0.43-5.25 mU/L REASON FOR VISIT check up, discuss results Medications Medication SIG (Take, Route, Frequency, Duration) Notes Start Date End Date Status Pregabalin 200 MG 1 cap(s) orally 2 times a day; Duration: 90 days 07/17/2024 Active Ofloxacin 0.3 % 1 gtt in each affected eye 4 times a day; Duration: 5 day(s) 05/17/2022 Not-Taking Flonase Allergy Relief 50 MCG/ACT 1 spray in each nostril Nasally Once a day 07/26/2023 Not-Taking Linzess 72 MCG 1 capsule at least 30 minutes before the first meal of the day on an empty stomach Orally Once a day; Duration: 30 days 12/02/2024 Active Ferrous Sulfate 325 (65 Fe) MG 1 tab(s) orally once a day; Duration: 90 days Active Baclofen 10 MG 1 tab(s) orally [...] a day; Duration: 90 days 12/04/2023 Active Atorvastatin Calcium 20 MG 1 tablet Orally Once a day; Duration: 90 days Active Fenofibrate 145 MG 1 tablet Orally Once a day; Duration: 90 days Active Potassium Chloride ER 10 MEQ 1 cap(s) orally 2 times a day; Duration: 90 days Active Icosapent Ethyl 1 GM 2 capsules with meals Orally Twice a day; Duration: 90 days 11/08/2022 Not-Taking NIFEdipine ER 30 MG 1 tab(s) orally 2 times a day; Duration: 90 days Not-Taking Prolia 60 MG/ML 60 mg Subcutaneous every 6 months 07/30/2023 Not-Taking Atenolol 25 MG 1 tab(s) orally once a day; Duration: 90 days Active Irbesartan 300 MG 1 tab(s) orally once a day; Duration: 90 days Active Triamcinolone Acetonide 0.1 % 1 application do not rinse afterwards and avoid eating or drinking for 30 minutes Mouth/Throat Twice a day, prn 07/26/2023 Not-Taking Sucralfate 1 GM TAKE 1 TABLET BY MOUTH 4 TIMES DAILY BEFORE MEAL(S) AND AT BEDTIME; Duration: 30 Not-Taking ICOSAPENT 1 G 2 CAP(S) ORALLY 2 TIMES A DAY; Duration: 90 DAYS *Please review for potential replacement for e-prescription and drug interaction check* 06/01/2022 Active Zinc Acetate 50 MG 1 cap(s) orally once daily Active FLAX SEED 1000 MG DAILY *Please review for potential replacement for e-prescription and drug interaction check* Not-Taking Cinnamon 500 MG 2 cap(s) orally Active Vitamin E 400 UNIT 1 cap(s) orally once a day Active Vitamin D3 50 MCG (2000 UT) 2 tab orally once a day Active Vitamin B12 *Please review and pick correct strength-formulat ion from Etubics options. If intended option is not shown, discontinue and re-order from Quick Search* Active Vitamin C 500 MG 1 tab(s) orally twice a day Active Docusate Sodium 100 MG 1 cap(s) orally 2 times a day Not-Taking Glucosamine Chond MSM Formula - 2 tab orally BID Active CareTouch CPAP & BIPAP Hose 1 DIRECTED *Please review and pick correct strength-formulat ion from Etubics options. If intended option is not shown, discontinue and re-order from Quick Search* Active metFORMIN HCl 500 MG 1 tablet with a meal Orally Once a day Active Biotin 41256 MCG 1 tablet Orally Once a day Active Aspirin 81 81 MG 1 tablet Orally Once a day Active hydrOXYzine HCl 10 MG 1 tablet as needed Orally Once a day Active Vital Signs Blood pressure systolic 120 mm Hg 12/26/19 25 Blood pressure diastolic 70 mm Hg 025 Heart Rate 83 /min 12/25/2024 Height 60 in 12/25/2024 Weight 177.6 lbs 12/25/2024 BMI 34.68 kg/m2 12/25/2024 Encounters Encounter Location Date Provider Diagnosis [facility] [address] [place] [id number] 12/25/2024 Gricelda Huerta Abnormal TSH R94.6 a nd Other fatigue R53.83 Assessments Encounter Date Diagnosis (ICD Code) Assessment Notes Treatment Notes Treatment Clinical Notes Section Notes 12/25/2024 Abnormal TSH (ICD-10 - R94.6) 12/25/2024 Other fatigue (ICD-10 - R53.83) Plan Of Treatment Next Appt Details Follow Up: via phone to repo rt test results, Reason: Progress Notes * Perri APPIAHOB: 3 (84 yo F)Acc No.[id number]:12/25/2024 Progress Notes Patient: Mariely RODRIGUEZ Provider: NEHEMIAH Eddy :1940 A ge:84 Y S ex:Female Date:12/25/2024 Address:[address] [place] [id number] Pcp:Jordan Johnson Subjective: * Chief Complaints: * 1 . Check up, discuss results. * HPI: H PI: 84 year old female presents with c/o Patient is here today for?Pt is here today for a check up. Pt sts she would like to discuss coming off of some of her medications as feels she takes to many. Pt sts she would also like to discuss her thyroid results. * ROS: D ERMATOLOGY: no R tolu. [...] Dr. Duval, Has a primary MD in [place], 12/2021 ZINA. * Surgical History: c holecystectomy , x2 , hysterectomy , knee replacement x4 , crushed elbow repair , carpal tunnel repair , ganglion cyst removal R wrist , bilateral breast reducation 08/15/2009, Back Surgery-rods and screws placed in L4 and L5 2009, Appendectomy , Hemorrhoidectomy X2 , colonoscopy 2015, Pain Pump - Dilaudid 05/22/2017, Right hip replacement- [facility] 09/23/2019, right shoulder replacement - Dr Douglass - [facility] 12/07/2020, Spinal surgery 03/2021, Left ankle repair 12/19/2021. * Hospitalization/Major Diagno stic Procedure: c hild 196, 1964, 1968, 71,73, HTN-[facility] 05/2015, Elbow Repair 1984, [facility]- [facility] B/P 04/2020, LT Posterior tibial tendon dysfunction with surgical intervention by Dr. Gonzalez at [facility] in [place], [place] 12/19-. * Family History: F ather: [...] no. Alcohol: No. * Medications: T aking hydrOXYzine HCl 10 MG Tablet 1 tablet as needed Orally Once a day , Taking Aspirin 81 81 MG Tablet Delayed Release 1 tablet Orally Once a day , Taking Biotin 42874 MCG Tablet 1 tablet Orally Once a day , Taking metFORMIN HCl 500 MG Tablet 1 tablet with a meal Orally Once a day , Taking CareTouch CPAP & BIPAP Hose MACHINE AND SUPPLIES 1 DIRECTED , Notes to Pharmacist: *Please review and pick correct strength-formulation from Medispan options. If intended option is [...] *Please review and pick correct strength-formulation from Etubics options. If intended option is not shown, discontinue and re-order from Quick Search*, Taking Zinc Acetate 50 MG Capsule 1 cap(s) orally once daily , Taking Cinnamon 500 MG Capsule 2 cap(s) orally , Taking ICOSAPENT 1 G CAPSULE 2 CAP(S) ORALLY 2 TIMES A DAY , Notes to Pharmacist: *Please review for potential replacement for e-prescription and drug interaction check*, Taking Irbesartan 300 MG Tablet 1 tab(s) [...] tab(s) orally once a day , Taking Pregabalin 200 MG Capsule 1 cap(s) orally 2 times a day , Taking Linzess 72 MCG Capsule 1 capsule at least 30 minutes before the first meal of the day on an empty stomach Orally Once a day , Taking Ferrous Sulfate 325 (65 Fe) MG Tablet 1 tab(s) orally once a day , Not-Taking Docusate Sodium 100 MG Capsule 1 cap(s) orally 2 times a day , Not-Taking FLAX SEED 1000 MG DAILY , Notes to Pharmacist: *Please review for potential replacement for e-prescription and drug interaction check*, Not-Taking Sucralfate 1 GM Tablet TAKE 1 TABLET BY MOUTH 4 TIMES DAILY BEFORE MEAL(S) AND AT BEDTIME , Not-Taking Triamcinolone Acetonide 0.1 % Paste 1 application do not rinse afterwards and avoid eating or drinking for 30 minutes Mouth/Throat Twice a day, prn , Not-Taking Prolia 60 MG/ML Solution Prefilled Syringe 60 mg Subcutaneous every 6 months , Not-Taking NIFEdipine ER 30 MG Tablet Extended Release 24 Hour 1 tab(s) orally 2 times a day , Not-Taking Icosapent Ethyl 1 GM Capsule 2 capsules with meals Orally Twice a day , Not-Taking Flonase Allergy Relief 50 MCG/ACT Suspension 1 spray in each nostril Nasally Once a day , Not- Taking Ofloxacin 0.3 % Solution 1 gtt in each affected eye 4 times a day , Medication List reviewed and reconciled with the patient * Allergies: I ASSEMBLER HANDBAGS DYE, Iodine. Objective: * Vitals: W t: 177.6, Temp: 98.6, BP: 120/70, HR: 83, Nurse: donato, Ht: 60, BMI:34.68. * Examination: G eneral Examination: General Appearance: [...] o leg edema. Assessment: * Assessment: 1. A bnormal TSH - R94.6 (Primary) 2 . O ther fatigue - R53.83 ? Plan: * Treatment: Value Reference Range T hyroxine Free (free T4) 1.25 0.86-1.76 - ng/d L * Gricelda Huerta 12/25/2024 03:02:07 PM EDT >room 5, purple Kalyani Bello 12/30/2024 10:07:34 AM EDT > See phone encounter ?LAB: P-Thyroid Antibody Panel (TABS) (Collection Date & Time - 12/25/2024 02:10 PM)?Normal* Value Reference Range T hyroid Peroxidase Antibody 14 <9-34 - IU/mL * T hyroglobulin Antibody 19.9 <10-115.0 - IU/mL * Gricelda Huerta 12/25/2024 03:02:07 PM EDT >room 5, Kalyani Mccain 12/30/2024 10:07:34 AM EDT > See phone encounter ?LAB: P-TSH (Collection Date & Time - 12/25/2024 02:10 PM)?Normal* Value Reference Range T SH 1.83 0.43-5.25 - mU/L * Gricelda Huerta 12/25/2024 03:02:07 PM EDT >room 5, Kalyani Mccain 12/30/2024 10:07:34 AM EDT > See phone encounter ?LAB: CBC Venipuncture (in house) (Collection Date & Time - 12/25/2024)* Value Reference Range w bc 6.1 3.5 - 10 * l ymph 26.9 15 - 50 * m id 6.9 2 - 15 * g ran 66.2 35 - 80 * r bc 4.69 3.5 - 5.5 * h gb 13.6 11.5 - 16.5 * h ct 40.8 35 - 55 * m cv 87.0 75 - 100 * m ch 29.1 25 - 35 * m chc 33.5 31 - 38 * p latlet 242 100 - 400 * Sushma Alfredo 12/25/2024 03: 37:36 PM EDT > 2.?Other fatigue?LAB: P-Comprehensive Metabolic Panel (CMP) (Collection Date & Time - 12/25/2024 02:10 PM)?Glu 111, BUN 28* Value Reference Range A /G Ratio 1.8 1.1-2.5 - * A lbumin 4.6 3.5-5.3 - g/dL * A lkaline Phosphatase 40 35-121 - IU/L * A LT (SGPT) 17 <5-47 - IU/L * A ST (SGOT) 25 <5-40 - IU/L * B ilirubin, Total 0.3 <0.2-1.2 - mg/dL * B UN 28 H 8-23 - mg/dL * C alcium 9.8 8.6-10.4 - mg/dL * C hloride 98 97-108 - mmol/L * C O2 30 20-32 - mmol/L * C reatinine 0.87 0.50-1.00 - mg/dL * G lucose 111 H 65-99 - mg/dL * P otassium 4.1 3.5-5.3 - mmol/L * S odium 141 135-145 - mmol/L * P rotein 7.1 6.0-8.3 - g/dL * e GFR by Creatinine 66 >59 - mL/min/1.73m2 * Gricelda Huerta 12/25/2024 03:02:07 PM EDT >room 5, Kalyani Mccain 12/30/2024 10:07:34 AM EDT > See phone encounter ?LAB: P-Magnesium (Collection Date & Time - 12/25/2024 02:10 PM)?Normal* Value Reference Range M agnesium 1.9 1.6-2.4 - mg/dL * Gricelda Huerta 12/25/2024 03:02:07 PM EDT >room 5, Kalyani Mccain 12/30/2024 10:07:34 AM EDT > See phone encounter ?LAB: P-Phosphorus (Collection Date & Time - 12/25/2024 02:10 PM)?Normal* Value Reference Range P hosphorus 4.0 2.5-4.5 - mg/dL * Gricelda Huerta 12/25/2024 03:02:07 PM EDT >room 5, Kalyani Mccain 12/30/2024 10:07:34 AM EDT > See phone encounter * Procedure Codes: G 2211 Complex e/[place], [address] CBC WITH AUTO DIFF, 32499 VENIPUNCT, ROUTINE*, 1036F TOBACCO NON-USER, 3074F SYST BP LT 130 MM HG, 3078F DIAST BP < 80 MM HG * Follow Up: v ia phone to report test results * Images: Billing Information: * Visit Code: 59785 Office Visit, Est Pt., Level 4. * Procedure Codes: G2211 Complex e/[place] [address] CBC WITH AUTO DIFF. 47230 VENIPUNCT, ROUTINE*. 1036F TOBACCO NON-USER. 3074F SYST BP LT 130 MM HG. 3078F DIAST BP < 80 MM HG. * Electronic signature of NEHEMIAH Glez on 01/20/2025 at 09:17 AM EST Sign off status: Pending * Provider: NEHEMIAH Eddy Date: Generated for Kar kessler/Elvira/eTransmitting on: 03/22/2024 09:17 AM EST History and Physical Notes * HPI (History of Present Illness) Category Sub-Category Detail Notes Category Not es HPI Patient is here today for Pt is here today for a check up. Pt sts she would like to discuss coming off of some of her medications as feels she takes to many. Pt sts she would also like to discuss her thyroid results Examination Category Sub-Category Detail Notes Category Not [...]
--- OUTSIDE RECORDS SUMMARY | 2025-01-13 13:45 | XMS_ITS | Encounter Summary ---
[facility] Address [address] [place] [address] Care Team Providers Care Curriculum Coach Name Role Phone Jordan Johnson MD Primary Care Provider + [phone] Reason for Visit * Reason Comments Chronic diastolic congestive heart failu re Encounter Details Date Type Department Care Team (Late st Contact Info) Description 01/13/2025 1:45 PM EST Office Visit [facility] [address] [facility] [address] [place] [address] Dex Avendano MD [address] [place] [address] Essential hypertension (Primary Dx); Chronic diastolic congestive heart failure; Obstructive sleep apnea syndrome; Leg swelling Social History Tobacco Use Types Packs/Day Years Used Date Smoking Tobacco: Never Passive Smoke Exposure: Past Smokeless Tobacco: Never Alcohol Use Standard Drinks/Week Comments Never 0 [...] on file documented as of this encounter Last Filed Vital Signs Vital Sign Reading Time Taken Comments Blood Pressure 126/72 01/13/2025 2:13 PM EST Pulse 85 01/13/2025 2:13 PM EST Temperature - - Respiratory Rate - - Oxygen Saturation 91% 01/13/2025 2:13 PM EST Inhaled Oxygen Concentration - - Weight 79.8 kg (176 lb) 01/13/2025 2:13 PM EST Height 152.4 cm (5') 01/13/2025 2:13 PM EST Body Mass Index 34.37 01/13/2025 2:13 PM EST documented in this encounter Progress Notes * Dex Avendano MD - 01/13/2025 1:45 PM EST [facility] Established Patient Office Visit Patient Name: Mariely Reyes : 1940 Care Team: Patient Care Team: Jordan Johnson MD as PCP - General (Family Medicine) Indio Lockhart MD (Anesthesiology) Dex Avendano MD as Airline Counter Agent (Cardiology) Chief Complaint Patient presents with Chronic diastolic congestive heart failure HPI: Mariely Reyes is a 84 y.o. female with a history of HTN, HLD, DM, and PRECIOUS on CPAP who presents today for routine follow-up. Since her last visit in June she has not had interval hospitalizations. She continues to have some apneic episodes at night. Her breathing has been stable with some dyspnea on exertion and leg swelling which is largely stable. She does not have any angina. Subjective Review of Systems Constitutional: Positive for fatigue. Respiratory: Positive for shortness of breath. Cardiovascular: Positive for leg swelling. Negative for chest pain and palpitations. Past Medical History: Diagnosis Date Anxiety Arthritis Back problem Bronchitis Depression Diabetes mellitus GERD (gastroesophageal reflux disease) Hypercholesteremia Hypertension Pneumonia Sleep apnea Past Surgical History: Procedure Laterality Date ANKLE LIGAMENT RECONSTRUCTION Left APPENDECTOMY 1963 BACK SURGERY SECTION 1970, 1972, 1989 CHOLECYSTECTOMY 1989 COLONOSCOPY ESOPHAGOSCOPY / EGD HYSTERECTOMY 1980 LUMBAR FUSION 07/28/2010 L4-5; L5-S1 - Dr. Jasso PAIN PUMP INSERTION/REVISION REPLACEMENT TOTAL HIP LATERAL POSITION REPLACEMENT TOTAL KNEE BILATERAL Bilateral TOTAL SHOULDER REPLACEMENT Right 2019 Current Outpatient Medications: ASPIRIN 81 PO, Take 1 tablet by mouth Daily., Disp: , Rfl: atenolol (TENORMIN) 25 MG tablet, Take 1 tablet by mouth Daily., Disp: , Rfl: atorvastatin (LIPITOR) 20 MG tablet, Take 1 tablet by mouth Daily., Disp: , Rfl: baclofen (LIORESAL) 10 MG tablet, Take 1 tablet by mouth 3 times a day., Disp: , Rfl: Cholecalciferol (Vitamin D3) 50 MCG (2000 UT) capsule, Take 1 capsule by mouth Daily., Disp: , Rfl: cyanocobalamin (VITAMIN B-12) 1000 MCG tablet, Take 1 tablet by mouth., Disp: , Rfl: empagliflozin (JARDIANCE) 10 MG tablet tablet, Take 1 tablet by mouth Daily., Disp: 30 tablet, Rfl:5 fenofibrate (TRICOR) 145 MG tablet, Take 1 tablet by mouth Daily., Disp: , Rfl: ferrous sulfate 325 (65 FE) MG tablet, Take 1 tablet by mouth Daily With Breakfast., Disp: , Rfl: fluticasone (FLONASE) 50 MCG/ACT nasal spray, 1 spray by Each Nare route Daily., Disp: , Rfl: furosemide (LASIX) 20 MG tablet, Take 1 tablet by mouth Daily., Disp: , Rfl: Glucosamine-Chondroitin (GLUCOSAMINE CHONDR COMPLEX PO), Take by mouth., Disp: , Rfl: irbesartan (AVAPRO) 300 MG tablet, Take 1 tablet by mouth Daily., Disp: , Rfl: metFORMIN (GLUCOPHAGE) 500 MG tablet, Take 1 tablet by mouth 2 (Two) Times a Day., Disp: , Rfl: montelukast (SINGULAIR) 10 MG tablet, Take 1 tablet by mouth Daily., Disp: , Rfl: omeprazole (priLOSEC) 40 MG capsule, Take 1 capsule by mouth Daily., Disp: , Rfl: pregabalin (LYRICA) 200 MG capsule, Take 1 capsule by mouth Every 12 (Twelve) Hours., Disp: , Rfl: Prolia 60 MG/ML solution prefilled syringe syringe, , Disp: , Rfl: sertraline (ZOLOFT) 100 MG tablet, Take 2 tablets by mouth Daily., Disp: , Rfl: Vascepa 1 g capsule capsule, Take 2 g by mouth 2 (Two) Times a Day., Disp: , Rfl: venlafaxine XR (EFFEXOR-XR) 75 MG 24 hr capsule, Take 1 capsule by mouth Daily., Disp: , Rfl: vitamin E 400 UNIT capsule, Take 1 capsule by mouth Daily., Disp: , Rfl: spironolactone (ALDACTONE) 25 MG tablet, Take 1 tablet by mouth Daily., Disp: 30 tablet, Rfl: 11 spironolactone (ALDACTONE) 25 MG tablet, Take 1 tablet by mouth Daily., Disp: 30 tablet, Rfl: 0 Allergies Allergen Reactions Iodinated Contrast Media Hives Povidone Iodine Hives Contrast Dye (Echo Or Unknown Ct/Mr) Hives Iodine Hives Shellfish Protein-Containing Drug Products Swelling States had a strange sensation - mild tingling and difficult to explain , in mouth after eating shrimp. States had a strange sensation - mild tingling and difficult to explain , in mouth after eating shrimp. Objective Vitals: 01/13/25 1413 BP: 126/72 BP Location: Right arm Patient Position: Sitting Pulse: 85 SpO2: 91% Weight: 79.8 kg (176 lb) Height: 152.4 cm (60 ) Body mass index is 34.37 kg/m??. Gen: well developed, sitting up on exam table, comfortable appearing HEENT: MMM, sclera anicteric, conjunctiva normal, no carotid bruits CV: regular rate, regular rhythm, no murmurs or rubs, normal S1, S2. 2+ radial and PT pulses Pulm: RA, normal work of breathing, no wheezes, rales, rhonchi Ext: normal bulk for age, normal tone, 1+ dependent edema, L > R Neuro: alert, oriented, face symmetrical, moving all extremities well Psych: normal mood, appropriate affect Most recent PCP note, imaging tests, and labs reviewed. Labs: Procedures 12/19/23 - [facility], [facility] - Normal LV size. Normal LVEF, 60%. Increased LV wall thickness. Grade 2 diastolic dysfunction - RV is mild to moderately dilated with mild hypokinesis - Mild LA dilation, mild RA dilation - Mildly thickened AV with mild AR, no - MV leaflets mildly thickened, moderate MR, no MS - Mild TR, RVSP 35 to 40 mmHg Advance Care Planning ACP discussion was declined by the patient. Patient does not have an advance directive, informationprovided. Assessment & Plan ICD-10-CM ICD-9-CM 1. Essential hypertension I10 401.9 2. Chronic diastolic congestive heart failure I50.32 428.32 428.0 3. Obstructive sleep apnea syndrome G47.33 327.23 4. Leg swelling M79.89 729.81 Chronic heart failure with preserved ejection fraction, grade 2 diastolic dysfunction - Appears euvolemic, continue furosemide - continue SGLT2, will add spironolactone Hypertension - Well-controlled today - Will discontinue CCB and add spironolactone to see if this helps with some of her leg swelling - Check BMP in 1 week Return in about 6 months (around 07/13/2025). Etienne Avendano MD 01/13/25 [facility] [address] [facility] [address] [place] [address] documented in this encounter Plan of Treatment Upcoming Encounters Date Type Department Care Team (Late st Contact Info) Description 07/21/2025 2:15 PM EDT Office Visit [facility] [address] [place] [phone] Dex Avendano MD [address] [address] Scheduled Orders Name Type Priority Associated Diagnoses Orde r Schedule Basic Metabolic Panel Lab Routine Essential hypertension Expected: 01/18/2025 (Approximate), Expires: 04/15/2026 documented as of this encounter Visit Diagnoses Diagnosis Essential hypertension- Primary Unspecified essential hypertension Chronic diastolic congestive heart failure Obstructive sleep apnea syndrome Obstructive sleep apnea (adult) (pediatric) Leg swelling Swelling of limb documented in this encounter Care Teams Curriculum Coach Relationship Specialty Start Date End Date Jordan Johnson MD [address] [facility] [address] [place] [id number] PCP - General Family Medicine 06/22/20 documented as of this encounter
--- OUTSIDE RECORDS SUMMARY | 2025-01-15 08:00 | XMS_ITS ---
Author Organization [facility] Address [address] [facility] 36 [facility] [address] [place], [place] [id number] Care Team Providers Care Operations Architect Name Role Phone Jordan Johnson Primary Care Provider [phone] Gricelda Huerta [phone] REASON FOR VISIT prolia shot Encounters Encounter Location Date Provider Diagnosis [facility] [address] [facility] 36 [facility] [address] [place] [id number] 01/15/2025 Gricelda Huerta Osteoporosis M81.0 Assessments Encounter Date Diagnosis (ICD Code) Assessment Notes Treatment Notes Treatment Clinical Notes Section Notes 01/15/2025 Osteoporosis (ICD-10 - M81.0) Plan Of Treatment No Information Medications Administered Medication Instructions Date of Administration Dosage Notes PROLIA 01/15/2025 1 mL Progress Notes * Rory APPIAHVeronicaOB: 3 (84 yo F)Acc No.[id number]:01/15/2025 Patient: Mariely RODRIGUEZ Provider: NEHEMIAH Eddy :1940 A ge:84 Y S ex:Female Date:01/15/2025 Address:[address] [place], [place] [id number] Pcp:Jordan Johnson Subjective: * Chief Complaints: * 1 . Prolia shot. * Medical History: Objective: * Vitals: Assessment: * Assessment: 1. O steoporosis - M81.0 (Primary) Plan: * Treatment: * Therapeutic Injections: Prolia : 1 mL (Route: Subcutaneous) given by Saira Hart on right deltoid (Osteoporosis) * Images: Billing Information: * Visit Code: * Procedure Codes: * Electronic signature of NEHEMIAH Glez on 01/20/2025 at 09:18 AM EST Sign off status: Pending * Provider: NEHEMIAH Eddy Date: 03/17/2024 Generated for Kar kessler/Elvira/Alejandro on: 03/22/2024 09:18 AM EST
--- OUTSIDE RECORDS SUMMARY | 2025-01-20 09:17 | XMS_ITS | Clinical Summary ---
Author Organization [facility] Address [address] [place] [address] Care Team Providers Care Rejogger Name Role Phone Jordan Johnson MD Primary Care Provider + [phone] Allergies Active Allergy Reactions Criticality Noted Date Comments Contrast Dye (Echo Or Unknown Ct/Mr) Hives Medium 07/22/2020 Iodinated Contrast Media Hives High 04/11/2011 Iodine Hives Medium 07/22/2020 Povidone Iodine Hives High 04/11/2011 Shellfish Protein-Containing Drug Products Swelling 02/23/2021 States had a strange sensation - mild tingling and difficult to explain , in mouth after eating shrimp. States had a strange sensation - mild tingling and difficult to explain , in mouth after eating shrimp. Medications metFORMIN (GLUCOPHAGE) 500 MG tablet Take 1 tablet by mouth 2 (Two) Times a Day. 1 Active irbesartan (AVAPRO) 300 MG tablet Take 1 tablet by mouth Daily. 1 Active Vascepa 1 g capsule capsule Take 2 g by mouth 2 (Two) Times a Day. 1 Active montelukast (SINGULAIR) 10 MG tablet Take 1 tablet by mouth Daily. 1 Active omeprazole (priLOSEC) 40 MG capsule Take 1 capsule by mouth Daily. 1 Active sertraline (ZOLOFT) 100 MG tablet Take 2 tablets by mouth Daily. 1 Active fenofibrate (TRICOR) 145 MG tablet Take 1 tablet by mouth Daily. 1 Active ASPIRIN 81 PO Take 1 tablet by mouth Daily. Active vitamin E 400 UNIT capsule Take 1 capsule by mouth Daily. Active Glucosamine-Ch ondroitin (GLUCOSAMINE CHONDR COMPLEX PO) Take by mouth. Active Cholecalcifero l (Vitamin D3) 50 MCG (1999 UT) capsule Take 1 capsule by mouth Daily. Active ferrous sulfate 325 (65 FE) MG tablet Take 1 tablet by mouth Daily With Breakfast. Active atorvastatin (LIPITOR) 20 MG tablet Take 1 tablet by mouth Daily. Active baclofen (LIORESAL) 10 MG tablet Take 1 tablet by mouth 3 times a day. 4 Active Prolia 60 MG/ML solution prefilled syringe syringe 4 Active fluticasone (FLONASE) 50 MCG/ACT nasal spray 1 spray by Each Nare route Daily. 4 Active furosemide (LASIX) 20 MG tablet Take 1 tablet by mouth Daily. 4 Active atenolol (TENORMIN) 25 MG tablet Take 1 tablet by mouth Daily. 4 Active cyanocobalamin (VITAMIN B-12) 1000 MCG tablet Take 1 tablet by mouth. Active pregabalin (LYRICA) 200 MG capsule Take 1 capsule by mouth Every 12 (Twelve) Hours. 4 Active empagliflozin (JARDIANCE) 10 MG tablet tablet Take 1 tablet by mouth Daily. 30 tablet 5 5 Active venlafaxine XR (EFFEXOR-XR) 75 MG 24 hr capsule Take 1 capsule by mouth Daily. 5 Active spironolactone (ALDACTONE) 25 MG tablet Take 1 tablet by mouth Daily. 30 tablet 11 5 Active spironolactone (ALDACTONE) 25 MG tablet Take 1 tablet by mouth Daily. 30 tablet 5 Active NIFEdipine CC (ADALAT CC) 30 MG 24 hr tablet Take 2 tablets by mouth Daily. 1 01/14/20 Discontinued potassium chloride (MICRO-K) 10 MEQ CR capsule Take 1 capsule by mouth Every 12 (Twelve) Hours. 4 01/14/20 Discontinued Active Problems Problem Noted Date Diagnosed Date Lumbar stenosis with neurogenic claudication Encounters Date Type Department Care Team Description 01/13/2025 1:45 PM EST Office Visit [facility] [address] [facility] [address] [place] [address] Dex Avendano MD Essential hypertension (Primary Dx); Chronic diastolic congestive heart failure; Obstructive sleep apnea syndrome; Leg swelling 01/13/2025 Travel from Last 3 Months Family History Medical History Relation Name Comments [...] Pulse 85 01/13/2025 2:13 PM EST Temperature 36.5 C (97.7 F) 08/16/2020 6:24 AM EDT Respiratory Rate 18 08/16/2020 8:49 AM EDT Oxygen Saturation 91% 01/13/2025 2:13 PM EST Inhaled Oxygen Concentration - - Weight 79.8 kg (176 lb) 01/13/2025 2:13 PM EST Height 152.4 cm (5') 01/13/2025 2:13 PM EST Body Mass Index 34.37 01/13/2025 2:13 PM EST Plan of Treatment Upcoming Encounters Date Type Department Care Team (Late st Contact Info) Description 07/21/2025 2:15 PM EDT Office Visit [facility] [address] [facility] [address] [place] [address] Dex Avnedano MD [address] [facility] [address] [place] [address] Health Maintenance Due Date Last Done Comments DXA SCAN 1940 COVID-19 Vaccine (#1) 05/25/1945 DIABETIC EYE EXAM 1952 DIABETIC FOOT EXAM 1950 URINE MICROALBUMIN-CREATININ E RATIO (uACR) 1950 TDAP/TD VACCINES (2 - Tdap) 11/28/2016 11/28/2006 RSV Vaccine - Adults (1 - 1- dose 75+ series) 2017 ANNUAL WELLNESS VISIT 07/22/2020 HEMOGLOBIN A1C 06/15/2022 12/15/2021, 0 08/2021, 12/05/2020, Additional history exists INFLUENZA VACCINE 10/09/2024 12/01/2019, , 12/24/2017, Additional history exists ZOSTER VACCINE Completed 07/28/2018, 05/10/2018 Pneumococcal Vaccine 50+ Completed 025, 09/03/2017, 12/12/2015, Additional history exists Procedures Procedure Name Priority Date/Time Associated Diagnosis Comments SCANNED - LABS 12/25/2024 from Last 3 Months Results * LABS SCANNED (12/25/2024) us Dex Avendano MD LAB BLOOD ORDERABLES Final Re sult from Last 3 Months Insurance [facility] [employer] PPO Care Teams Rejogger Relationship Specialty Start Date End Date Jordan Johnson MD [address] [facility] [address] [facility] [address] [place] [address] PCP - General Family Medicine 06/22/20
--- OUTSIDE RECORDS SUMMARY | 2025-01-20 09:17 | XMS_ITS | Encounter Summary ---
Author Organization [facility] Address [address] [place] [address] Care Team Providers Care Welt Trimming Machine Operator Name Role Phone Jordan Johnson MD Primary Care Provider + [phone] Encounter Details Date Type Department Care Team (Latest Contact Info) Description 01/13/2025 Travel Social History Tobacco Use Types Packs/Day Years [...] as of this encounter Plan of Treatment Upcoming Encounters Date Type Department Care Team (Late st Contact Info) Description 07/21/2025 2:15 PM EDT Office Visit [facility] [address] [address] Dex Avendano MD [address] [facility] [address] [place] [address] documented as of this encounter Visit Diagnoses Not on filedocumented in this encounter Care Teams Welt Trimming Machine Operator Relationship Specialty Start Date End Date Jordan Johnson MD [address] [place] [facility] [address] [place] [address] PCP - General Family Medicine 06/22/20 documented as of this encounter
--- OUTSIDE RECORDS SUMMARY | 2025-01-20 09:17 | XMS_ITS | Patient Health Record ---
Author Organization [facility] Address [address] [place], [place] [address] Care Team Providers Care Supervisor Model Making Name Role Phone Jordan Johnson Primary Care Provider [phone] WillieGricelda kimble Unavailable [phone] Allergies Allergen (clinical drug ingredient) Drug/Non Drug [...] 28 Performing Lab: Notes/Report: Test performed by [facility] [address] [facility] , [address], [place] [address] Satish Herrera MD, Head Banquet Waiter/Waitress CLIA: [id number] Sodium 141 135-145 mmol/L Potassium 4.1 3.5-5.3 [...] Interpretation:Normal Performing Lab: Notes/Report: Test performed by [facility] [address] , [place] [address] Satish Herrera MD, Head Banquet Waiter/Waitress CLIA: [id number] Thyroxine Free (free T4) 1.25 0.86-1.76 ng/dL P-Magnesium Reviewed date:12/30/2024 10:07:41 AM Interpretation:Normal Performing Lab: Notes/Report: Test performed by [facility] [address] , [facility] [place] [address] Satish Herrera MD, Head Banquet Waiter/Waitress CLIA: [id number] Magnesium 1.9 1.6-2.4 mg/dL P-Phosphorus Reviewed date:12/30/2024 10:07:41 AM Interpretation:Normal Performing Lab: Notes/Report: Test performed by [facility] [address] , [place] [address] Satish Herrera MD, Head Banquet Waiter/Waitress CLIA: [id number] Phosphorus 4.0 2.5-4.5 mg/dL P-Thyroid Antibody Panel (TA BS) Reviewed date:12/30/2024 10:07:41 AM Interpretation:Normal Performing Lab: Notes/Report: Test performed by [facility] [address] , [place] [address] Satish Herrera MD, Head Banquet Waiter/Waitress CLIA: [id number] Thyroid Peroxidase Antibody 14 <9-34 IU/mL An [...] Interpretation:Normal Performing Lab: Notes/Report: Test performed by [facility] [address] [place] [address] , [address], [place] [address] Satish Herrera MD, Head Banquet Waiter/Waitress CLIA: [id number] TSH 1.83 0.43-5.25 mU/L Reason For Referral Reason patient wants to see behavioral health and have genetic testing done Diagnosis 1 Anxiety, generalized (F41.1) [facility] Referring Provider First Name Gricelda Referring Provider Last Name Deanna Referring Provider Speciality Physician Junior Php Developer Referred Organization [facility] Referred Provider Nickie Ramírez Referred Address [address] [place], [place] [id number], Referred Provider Specialty Psychiatry General Notes Meyr Molina 024 3:25:07 PM > faxed to [facility] Behavioral Health, Mery Molina 02/11/2024 10:40:26 AM > spoke with L[employer]; she is calling the patient to schedule Referral Priority Routine Diagnosis 1 Jerking (R25.3) [facility] Referring Provider First Name Gricelda Referring Provider Last Name Deanna Referring Provider Speciality Physician Junior Php Developer Referred Provider Specialty Neurology General Notes Mery Molina 2024 03:28:49 PM > faxed to [facility] Neurology, Mery Molina 12/08/2024 09:42:14 AM > 12/14/2024 at 10:00am Referral Priority Routine Medications Medication SIG (Take, Route, Frequency, Duration) Notes Start Date End Date Status Vitamin E 400 UNIT 1 cap(s) orally once a day Active Baclofen 10 MG 1 tab(s) orally 3 times a day; Duration: 90 days Active Vitamin D3 50 MCG (2000 UT) 2 tab orally once a day Active Omeprazole 40 MG 1 cap(s) orally once a day; Duration: 90 days Active Vitamin B12 *Please review and pick correct strength-formulat ion from [employer] options. If intended option is not shown, discontinue and re-order from Quick Search* Active Pregabalin 200 MG 1 cap(s) orally 2 times a day; Duration: 90 days 07/17/2024 Active Vitamin C 500 MG 1 tab(s) orally twice a day Active Sertraline HCl 100 MG 2 tab(s) orally once a day; Duration: 90 days Active Lasix 20 MG 1 tablet Orally Once a day; Duration: 90 days 12/04/2023 Active Glucosamine Chond MSM Formula - 2 tab orally BID Active Jardiance 10 MG 1 tablet Orally Once a day; Duration: 90 days 02/07/2024 Active Montelukast Sodium 10 MG 1 tab(s) orally once a day as needed; Duration: 90 days Active ICOSAPENT 1 G 2 CAP(S) ORALLY 2 TIMES A DAY; Duration: 90 DAYS *Please review for potential replacement for e-prescription and drug interaction check* 06/01/2022 Active Zinc Acetate 50 MG 1 cap(s) orally once daily Active Flonase Allergy Relief 50 MCG/ACT 1 spray in each nostril Nasally Once a day 07/26/2023 Not-Taking Docusate Sodium 100 MG 1 cap(s) orally 2 times a day Not-Taking Linzess 72 MCG 1 capsule at least 30 minutes before the first meal of the day on an empty stomach Orally Once a day; Duration: 30 days 12/02/2024 Active FLAX SEED 1000 MG DAILY *Please review for potential replacement for e-prescription and drug interaction check* Not-Taking Cinnamon 500 MG 2 cap(s) orally Active Ferrous Sulfate 325 (65 Fe) MG 1 tab(s) orally once a day; Duration: 90 days Active Prolia 60 MG/ML 60 mg Subcutaneous every 6 months 07/30/2023 Active NIFEdipine ER 30 MG 1 tab(s) orally 2 times a day; Duration: 90 days Not-Taking Atenolol 25 MG 1 tab(s) orally once a day; Duration: 90 days Active Irbesartan 300 MG 1 tab(s) orally once a day; Duration: 90 days Active Ofloxacin 0.3 % 1 gtt in each affected eye 4 times a day; Duration: 5 day(s) 05/17/2022 Not-Taking Triamcinolone Acetonide 0.1 % 1 application do not rinse afterwards and avoid eating or drinking for 30 minutes Mouth/Throat Twice a day, prn 07/26/2023 Not-Taking Sucralfate 1 GM TAKE 1 TABLET BY MOUTH 4 TIMES DAILY BEFORE MEAL(S) AND AT BEDTIME; Duration: 30 Not-Taking CareTouch CPAP & BIPAP Hose 1 DIRECTED *Please review and pick correct strength-formulat ion from [employer] options. If intended option is not shown, discontinue and re-order from Quick Search* Active metFORMIN HCl 500 MG 1 tablet with a meal Orally Once a day Active hydrOXYzine HCl 10 MG 1 tablet as needed Orally Once a day Active Atorvastatin Calcium 20 MG 1 tablet Orally Once a day; Duration: 90 days Active Fenofibrate 145 MG 1 tablet Orally Once a day; Duration: 90 days Active Biotin 24954 MCG 1 tablet Orally Once a day Active Potassium Chloride ER 10 MEQ 1 cap(s) orally 2 times a day; Duration: 90 days Active Aspirin 81 81 MG 1 tablet Orally Once a day Active Icosapent Ethyl 1 GM 2 capsules with meals Orally Twice a day; Duration: 90 days 11/08/2022 Not-Taking Immunizations Vaccine Route Administration Date Status Comme nts DT, 7 YEARS OR OLDER Unknown 11/28/2006 Administered DT, 7 YEARS OR OLDER Unknown 11/28/2006 Administered Fluzone PF Quad (6-35 months) Unknown 12/24/2017 Administered Fluzone Quad-Medicare (6months&older) IM Intramuscular 12/01/2019 Administered Hepatitis A (adult) Unknown 12/03/2006 Administered Hepatitis A (adult) Unknown 12/03/2006 Administered Hepatitis A (adult) Unknown 12/01/2008 Administered Hepatitis A (adult) Unknown 12/01/2008 Administered PNEUMOVAX 23 VACCINE Unknown 12/06/2008 Administered PNEUMOVAX 23 VACCINE Unknown 12/06/2008 Administered PNEUMOVAX 23 VACCINE IM Intramuscular 09/03/2017 Administe red Prevnar (PCV13) IM Intramuscular 12/12/2015 Administered Prevnar (PCV20) IM Intramuscular 07/15/2024 Administered xFluzone High Dose-private (65yr&older) Unknown 12/15/2018 Administered Problems Problem Type SNOMED Code ICD Code Onset Dates Problem Status W/U Status Risk Notes Problem Vitamin D deficiency (15090529) Vitamin D deficiency (E55.9) Active confirmed Problem Essential hypertension (13395300) Essential hypertension (I10) Active confirmed Problem Hypertriglyceridemia (024443058) Hypertriglyceridemia (E78.1) Active confirmed Problem Seasonal allergy (919692601) Seasonal allergies (J30.2) Active confirmed Problem Arthropathy of lumba r facet joint (228346310) Lumbar facet arthropathy (M47.816) Active confirmed Problem Overactive urinary bladder (disorder) (086122319) OAB (overactive bladder) (N32.81) Active confirmed Problem Sciatica (78519317) Lumbago with sciatica, right side (M54.41) Active confirmed Problem Mixed hyperlipidemia (808675602) Mixed hyperlipidemia (E78.2) Active confirmed Problem Chronic pain (70587519) Other chronic pain (G89.29) Active confirmed Problem Sciatica (95953412) Lumbago with sciatica, left side (M54.42) Active confirmed Problem Postmenopausal atrophic vaginitis (50128548) Postmenopausal atrophic vaginitis (N95.2) Active confirmed Problem Generalized osteoarthritis (230918215) Generalized osteoarthritis (M15.9) Active confirmed Problem Mood disorder (78203443) Mood disorder (F39) Active confirmed Problem Obese class II (344343505890747) BMI 35.0-35.9,adult (Z68.35) Active confirmed Problem Generalized anxiety disorder (58107045) Anxiety, generalized (F41.1) Active confirmed Problem Displacement of lumbar intervertebral disc without myelopathy (11882994) Bulging lumbar disc (M51.26) Active confirmed Problem Gastroesophageal reflux disease (833641979) Gastroesophageal reflux disease, esophagitis presence not specified (K21.9) Active confirmed Problem Osteoporosis (36398474) Osteoporosis (M81.0) Active confirmed Problem Iron deficiency anemia (92605077) Iron deficiency anemia, unspecified iron deficiency anemia type (D50.9) Active confirmed Problem Body mass index 30.0 0 to 34.99 (304715015982573) BMI 34.0-34.9,adult (Z68.34) Active confirmed Problem Type II diabetes mellitus without complication (249839902) Type 2 diabetes mellitus without complication, without long-term current use of insulin (E11.9) Active confirmed Problem Seasonal allergic rhinitis (338021361) Seasonal allergic rhinitis, unspecified chronicity, unspecified trigger (J30.2) Active confirmed Problem History of lumbar fusion (07695882228043) History of lumbar fusion (Z98.1) Active confirmed Problem Obstructive sleep apnea syndrome (75406086) Mild obstructive sleep apnea (G47.33) Active confirmed Problem Deformity of left foot (937473512) Deformity of left foot (M21.962) Active confirmed Vital Signs Heart Rate 83 /min 12/25/2024 Blood pressure diastolic 70 mm Hg 12/25/2024 Height 60 in 12/25/2024 Blood pressure systolic 120 mm Hg 12/25/2024 Weight 177.6 lbs 12/25/2024 BMI 34.68 kg/m2 12/25/2024 Encounters Encounter Location Date Provider Diagnosis [facility] [address] [id number] 01/31/2024 Gricelda Huerta Osteoporosis M81.0 [facility] [address] masters [id number] 07/15/2024 Gricelda Huerta Adult general medica l [...] Z98.1 and Mild obstructive sleep apnea G47.33 [facility] [address] T[place]ESHA [place]asper [id number] 12/02/2024 Gricelda Huerta Chronic constipation K59.09 ; Jerking R25.3 and Seasonal allergies J30.2 [facility] [address] T[place]ESHA Kasper [id number] 12/25/2024 Gricelda Huerta Abnormal TSH R94.6 a nd Other fatigue R53.83 [facility] [address] [place], [place] [id number] 01/15/2025 Gricelda Huerta Osteoporosis M81.0 [facility] [address] [place], [place] [id number] 01/21/2024 Jordan Coppell Gastroesophageal ref lux disease, esophagitis presence not specified K21.9 ; Seasonal allergic rhinitis, unspecified chronicity, unspecified trigger J30.2 and Type 2 diabetes mellitus without complication, without long-term current use of insulin E11.9 [facility] [address] [place], [place] [id number] 01/22/2024 Jordan Coppell [facility] [address] [place] [id number] 01/23/2024 Jordan Coppell [facility] [address] [place], [place] [id number] 02/07/2024 Jordan Coppell [facility] [address] [place], [place] [id number] 02/07/2024 Gricelda Huerta Type 2 diabetes sher itus without complication, without long-term current use of insulin E11.9 and Anxiety, generalized F41.1 [facility] [address] [place], [place] [id number] 02/10/2024 Jordan Coppell Seasonal allergic rh initis, unspecified chronicity, unspecified trigger J30.2 [facility] [address] [place], [place] [id number] 02/19/2024 Jordan Coppell Lower extremity lisseth a R60.0 [facility] [address] [place], [place] [id number] 03/18/2024 Jordan Coppell Mixed hyperlipidemia E78.2 ; Hypertriglyceridemia E78.1 and Hypokalemia E87.6 [facility] [address] [place], [place] [id number] 04/06/2024 Jordan Coppell Mixed hyperlipidemia E78.2 [facility] [address] [place] [id number] 04/08/2024 Gricelda Crowdy [facility] [address] [place], [place] [id number] 05/04/2024 Jordan Coppell [facility] [address] [place], [place] [id number] 06/30/2024 Jordan Coppell Essential hypertensi on I10 [facility] [address] [place], [place] [id number] 07/02/2024 Jordan Coppell [facility] [address] [place], [place] [id number] 07/06/2024 Jordan Coppell Hypertriglyceridemia E78.1 [facility] [address] [place] [id number] 07/16/2024 Jordan Coppell [facility] [address] [place] [id number] 08/04/2024 Jordan Coppell [facility] [address] [place], [place] [id number] 08/06/2024 Gricelda Crowdy [facility] [address] [place] [id number] 09/21/2024 Jordan Coppell [facility] [address] [place], [place] [id number] 09/29/2024 Jordan Coppell [facility] [address] [place], [place] [id number] 12/11/2024 Jordan Coppell Iron deficiency anem ia, unspecified iron deficiency anemia type D50.9 [facility] [address] [place], [place] [id number] 12/16/2024 Gricelda Crowdy Abnormal TSH R94.6 [facility] [address] [place], [place] [id number] 12/28/2024 Jordan Coppell Chronic constipation K59.09 [facility] [address] [place], [place] [id number] 12/30/2024 Gricelda Deanna Assessments Encounter Date Diagnosis (ICD Code) Assessment Notes Treatment Notes Treatment Clinical Notes Section Notes 01/21/2024 Gastroesophageal ref lux disease, esophagitis presence not specified (ICD-10 - K21.9) 02/07/2024 Type 2 diabetes sher itus without complication, without long-term current use of insulin (ICD-10 - E11.9) 02/10/2024 Seasonal allergic rhinitis, unspecified chronicity, unspecified trigger (ICD-10 - J30.2) 02/19/2024 Lower extremity lisseth a (ICD-10 - R60.0) 01/31/2024 Osteoporosis (ICD-10 - M81.0) 03/18/2024 Mixed hyperlipidemia (ICD-10 - E78.2) 04/06/2024 Mixed hyperlipidemia (ICD-10 - E78.2) 06/30/2024 Essential hypertensi on (ICD-10 - I10) 07/06/2024 Hypertriglyceridemia (ICD-10 - E78.1) 07/15/2024 Essential hypertensi on (ICD-10 - I10) 07/15/2024 Adult general medica l examination (ICD-10 - Z00.00) Patient instructed to return to office Annually for Annual Wellness Visits to include annual screenings of Pain assessment, Functional Ability assessment, Cognitive Ability assessment, Fall Risk assessment, Depression screening and Bladder control screening. 12/02/2024 Chronic constipation (ICD-10 - K59.09) 12/02/2024 Jerking (ICD-10 - R25.3) Junie montemayor states she has periods of jerking movements with her ams and legs and would like to see neurology. 12/11/2024 Iron deficiency anem ia, unspecified iron deficiency anemia type (ICD-10 - D50.9) 12/16/2024 Abnormal TSH (ICD-10 - R94.6) 12/25/2024 Other fatigue (ICD-1 0 - R53.83) 12/25/2024 Abnormal TSH (ICD-10 - R94.6) 12/28/2024 Chronic constipation (ICD-10 - K59.09) 01/15/2025 Osteoporosis (ICD-10 - M81.0) 07/15/2024 Type 2 diabetes sher itus without complication, without long-term current use of insulin (ICD-10 - E11.9) 12/02/2024 Seasonal allergies (ICD-10 - J30.2) 02/07/2024 Anxiety, generalized (ICD-10 - F41.1) 01/21/2024 Seasonal allergic rhinitis, unspecified chronicity, unspecified trigger (ICD-10 - J30.2) 03/18/2024 Hypertriglyceridemia (ICD-10 - E78.1) 01/21/2024 Type 2 diabetes sher itus without complication, without long-term current use of insulin (ICD-10 - E11.9) 03/18/2024 Hypokalemia (ICD-10 - E87.6) 07/15/2024 Gastroesophageal ref lux disease, esophagitis presence not specified (ICD-10 - K21.9) 07/15/2024 Mixed hyperlipidemia (ICD-10 - E78.2) 07/15/2024 Mood disorder (ICD-1 0 - F39) 07/15/2024 Vitamin D deficiency (ICD-10 - E55.9) 07/15/2024 Iron deficiency anem ia, unspecified iron deficiency [...] encounter for (ICD-10 - Z12.31) 07/15/2024 Osteoporosis screeni ng (ICD-10 - Z13.820) 07/15/2024 History of lumbar fu gia (ICD-10 - Z98.1) 07/15/2024 Mild obstructive sle ep apnea (ICD-10 - G47.33) Plan Of Treatment Pending Test Test Name Order Date Thyroid Stimulating Hormone (TSH) 2024 Stool C Difficile (toxin A & B) 04/10/19 22 DEXA Hip and Spine 07/15/2024 BMP 12/26/2023 CMP 04/10/2021 T4 12/16/2024 Mammogram 07/15/2024 Thyroid auto antibodies 12/16/2024 CBC 04/10/2021 Insurance Providers Payer Name Payer Address Payer Phone Subscriber Number Group Number Insured Name Patient Relationship to Insured Coverage Start Date Coverage End Date [employer] (MEDICARE) [address] [address] [place] [address] [id number] Eric Mariely Self - patient is the insured [employer] [address] [place] [address] [phone] [id number] Rory Appiahen Self - patient is the insured Medications Administered Medication Instructions Date of Administration Dosage Notes PROLIA 08/01/2023 1 mL PROLIA 01/31/2024 1 mL left arm PROLIA 07/15/2024 1 mL PROLIA 01/15/2025 1 mL Medical (General) History Medical History History ICD Code hypertension arthritis hyperlipidemia type 2 diabetes Gastroesophageal reflux disease, esophag itis presence not specified low back pain Charcot foot, 2018, treated by Dr. Noble t Has a primary MD in [place] 12/2021 COVID Surgical History Surgery Date(Month/Year) cholecystectomy x2 hysterectomy knee replacement x4 crushed elbow repair carpal tunnel repair ganglion cyst removal R wrist bilateral breast reducation 08/15/2009 Back Surgery-rods and screws placed in L 4 and L5 2009 Appendectomy Hemorrhoidectomy X2 colonoscopy 2016 Pain Pump - Dilaudid 05/22/2017 Right hip replacement- [facility] 09/23/2019 right shoulder replacement - Dr Douglass Yury 12/07/2020 Spinal surgery 03/2021 Left ankle repair 12/19/2021 Hospitalization History Reason Date(Month/Year) LT 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 Gonzalez at [facility] in [place], [place] 12/19- [facility]- [facility] B/P 04/2020 Elbow Repair 1985 HTN-[facility] child 1960, 1964, 1968, 73 ,75
--- OUTSIDE RECORDS SUMMARY | 2025-01-20 09:17 | XMS_ITS | Patient Health Record ---
Author Organization [facility] Address [address] [place] [address] Care Team Providers Care Stack Matcher Name Role Phone Anna Lim Primary Care Provider Yenny Tellez [phone] Allergies Allergen (clinical drug ingredient) Drug/Non Drug Allergy documented on EMR Reaction Allergy Type Onset Date Status IVP DYE (uncoded) Hives Allergy Ac tive Iodine Hives Drug Allergy Active Results Component Value Reference Range Notes IH Electrocardiogram (ECG) Reviewed date:06/29/2024 09:12:28 AM Interpretation: Performing Lab: Notes/Report: Hemoglobin A1c Reviewed date:06/07/2024 10:04:00 PM Interpretation: Performing Lab:[facility] [address] [id number], Phone - [phone], Director - MDRichendollar Notes/Report: Clinical Information:SRC:Blood Hemoglobin A1c 6.1 4.8-5.6 % . Prediabetes: 5.7 - 6.4 Diabetes: >6.4 Glycemic control for adults with diabetes: <7.0 TSH Reviewed date:06/07/2024 10:04:00 PM Interpretation: Performing Lab:[facility] [address] [id number], Phone - [phone], Director - MDRichendollar Notes/Report: Clinical Information:SRC:Blood TSH 1.360 0.450-4.500 uIU/mL Albumin/Creatinine Ratio, Ra ndom Urine Reviewed date:06/07/2024 10:04:00 PM Interpretation: Performing [facility] [address] [place] [id number], Phone - [phone], Director - MDRichendollar Notes/Report: Clinical Information:SRC:Blood Creatinine, Urine 19.2 Not Estab. mg/dL Albumin, Urine 20.1 Not Estab. ug/mL Alb/Creat Ratio 105 0-29 mg/g creat Normal: 0 - 29 Moderately increased: 30 - 300 Severely increased: >300 Lipid Panel w/ Chol/HDL Rati o Reviewed date:06/07/2024 10:04:00 PM Interpretation: Performing Lab:[facility], [address] [place] [id number], Phone - [phone], Director - MDRichendollar Notes/Report: Clinical Information:SRC:Blood Cholesterol, Total 143 100-199 mg/dL Triglycerides 134 0-149 mg/dL HDL Cholesterol 33 >39 mg/dL VLDL Cholesterol Noah 24 5-40 mg/dL LDL Chol Calc ([facility]) 86 0-99 mg/dL T. Chol/HDL Ratio 4.3 0.0-4.4 ratio T. Chol/HDL Ratio Men Women 1/2 Avg.Risk 3.4 3.3 Avg.Risk 5.0 4.4 2X Avg.Risk 9.6 7.1 3X Avg.Risk 23.4 11.0 CBC with platelets and diffe rential Reviewed date:06/07/2024 10:04:00 PM Interpretation: Performing Lab:[facility], [address] [place] [id number], Phone - [phone], Director - MDRichendollar Notes/Report: Clinical Information:SRC:Blood WBC 4.1 3.4-10.8 x10E3/uL RBC 4.55 3.77-5.28 x10E6/uL Hemoglobin 12.6 11.1-15.9 g/dL Hematocrit 38.9 34.0-46.6 % MCV 86 79-97 fL MCH 27.7 26.6-33.0 pg MCHC 32.4 31.5-35.7 g/dL RDW 14.1 11.7-15.4 % Platelets 234 150-450 x10E3/uL Neutrophils 57 Not Estab. % Lymphs 29 Not Estab. % Monocytes 11 Not Estab. % Eos 2 Not Estab. % Basos 1 Not Estab. % Neutrophils (Absolute) 2.4 1.4-7.0 x10E3/uL Lymphs (Absolute) 1.2 0.7-3.1 x10E3/uL Monocytes(Absolute) 0.4 0.1-0.9 x10E3/uL Eos (Absolute) 0.1 0.0-0.4 x10E3/uL Baso (Absolute) 0.0 0.0-0.2 x10E3/uL Immature Granulocytes 0 Not Estab. % Immature Grans (Abs) 0.0 0.0-0.1 x10E3/uL Comp. Metabolic Panel (14) Reviewed date:06/07/2024 10:04:00 PM Interpretation: Performing Lab:[facility] [address] [id number], Phone - [phone], Director - MDRichendollar Notes/Report: Clinical Information:SRC:Blood Glucose 114 70-99 mg/dL BUN 22 8-27 mg/dL Creatinine 0.74 0.57-1.00 mg/dL eGFR 81 >59 mL/min/1.73 BUN/Creatinine Ratio 30 12-28 Sodium 140 134-144 mmol/L Potassium 4.1 3.5-5.2 mmol/L Chloride 99 96-106 mmol/L Carbon Dioxide, Total 28 20-29 mmol/L Calcium 9.7 8.7-10.3 mg/dL Protein, Total 7.1 6.0-8.5 g/dL Albumin 4.9 3.7-4.7 g/dL Globulin, Total 2.2 1.5-4.5 g/dL Bilirubin, Total 0.3 0.0-1.2 mg/dL Alkaline Phosphatase 31 44-121 IU/L AST (SGOT) 21 0-40 IU/L ALT (SGPT) 13 0-32 IU/L Urinalysis, Complete with Mi croscopic Examination Reviewed date:06/07/2024 10:04:00 PM Interpretation: Performing Lab:[facility] [address] [id number], Phone - [phone], Director - MDRichendollar Notes/Report: Clinical Information:SRC:Blood Clinical Information:SRC:Blood Specific [place] 1.013 1.005-1.030 pH 8.0 5.0-7.5 Urine-Color Yellow Yellow Appearance Clear Clear WBC Esterase 2+ Negative Protein Negative Negative/Trace Glucose 2+ Negative Ketones Negative Negative Occult Blood Negative Negative Bilirubin Negative Negative Urobilinogen,Semi-Qn 0.2 0.2-1.0 mg/dL Nitrite, Urine Negative Negative Microscopic Examination See below: Micr oscopic was indicated and was performed. WBC 0-5 0 - 5 /hpf RBC None seen 0 - 2 /hpf Epithelial Cells (non renal) 0-10 0 - 10 /hpf Casts None seen None seen /lpf Bacteria None seen None seen/Few Reason For Referral Reason Continue care with Mendez Bhatt Diagnosis 1 Obstructive sleep ap rico (G47.33) Referral Organization [facility] Referring Provider First Name Anna Referring Provider Last Name Ger collins Referring Provider Speciality Internal M edicine Referred Provider GAYLA BHATT Referred Provider Specialty Pulmonology Procedure 1 EST. PT. 25 MIN. MOD ERATE (40887) General Notes Mimi Salinas 05/30/19 25 06:41:40 AM >faxed referral so patient can be scheduled for appt and SMS message was sent to patient with referral details Referral Priority Stat Referral Appointment Date 06/01/2024 Reason FOLLOW UP Diagnosis 1 Loud snoring (R06.83 ) Diagnosis 2 Obstructive sleep ap rico (G47.33) Diagnosis 3 Daytime hypersomnia (G47.10) Diagnosis 4 Fatigue, unspecified type (R53.83) Referral Organization [facility] Referring Provider First Name Yenny Referring Provider Last Name Geoff Referring Provider Speciality Nurse Prac titioner Referred Provider GAYLA BHATT Referred Provider Specialty Pulmonology Procedure 1 Pos airway pressure cpap (10471) Procedure 2 COLLECT/REVIEW DATA FROM PT (20516) General Notes Mimi Salinas 08/15/19 25 09:31:02 AM >COMPLETED-Faxed referral back for upcoming appt. Referral Priority Routine Referral Appointment Date 09/29/2024 Medications Medication SIG (Take, Route, Frequency, Duration) Notes Start Date End Date Status Sertraline HCl 100 mg 2 tabs orally once a day; Duration: 90 days 01/11/2016 Active Jardiance 10 MG 1 tablet Orally daily; Duration: 90 days Active Aspirin 81 81 MG 1 tablet Orally Once a day Unknown Klor-Con M20 20 MEQ 1 tablet with food Orally BID Unknown Irbesartan 300 mg 1 tab(s) orally once a day Unknown HYDROmorphone HCl through pain pump Unknown Fosamax 70 MG 1 tablet 30 minutes before the first food, beverage or medicine of the day with plain water Orally Unknown Icosapent Ethyl 1 GM 2 capsules with meals Orally Twice a day As needed Unknown Atenolol 25 MG 1 tab Orally daily; Duration: 90 days 05/02/2010 Active Fluticasone Propionate 50 MCG/ACT 1 application Externally Once a day; Duration: 30 days Unknown Premarin 0.625 MG/GM as directed Vaginal once per week Unknown Ferrous Sulfate 325 (65 Fe) MG as directed Orally DAILY Unknown Pregabalin 200 MG 1 cap(s) orally 2 times a day non acute pain 05/23/2023 Unknown Fenofibrate 145 MG 1 capsule with a meal Orally Once a day Unknown Omeprazole 40 MG as directed Orally Once a day Unknown Baclofen 10 mg 1 tab(s) orally 3 times a day Unknown NIFEdipine ER 30 MG 1 tablet on an empty stomach Orally Once a day pt takes it bid Unknown Atorvastatin Calcium 20 MG 1 tablet Orally Once a day 05/23/2023 Unknown Montelukast Sodium 10 MG 1 tablet Orally Once a day Unknown metFORMIN HCl 500 mg 1 tab orally 2 time s a day Unknown Immunizations Vaccine Route Administration Date Status Comme nts Influenza (Fluarix, Flulaval, Fluzone or Afluria) (IIV4) 0.5mL (single-dose syringe) IM Intramuscular 12/20/2012 Administered Lot # [id number] Immunization Given by from source eCW:: [facility] Influenza (Fluarix, Flulaval, Fluzone or Afluria) (IIV4) 0.5mL (single-dose syringe) Unknown 05/17/2016 Pending Immunization Giv en by from source eCW:: Shingles RZV (Shingrix) Unknown 05/10/2018 Administered Shingles RZV (Shingrix) Unknown 07/28/2018 Administered Social History Tobacco Use: Social History Observation Description Date Details (start date - stop date) Never Smoker NA - NA Tobacco Use/Smoking Question Answer Notes Are you a nonsmoker AUDIT-C (Standard) Question Answer Notes Did you have a drink containing alcohol in the p ast year? No Points 0 Interpretation Negative Problems Problem Type SNOMED Code ICD Code Onset Dates Problem Status W/U Status Risk Notes Problem Mixed hyperlipidemia (863254666) Mixed hyperlipidemia (E78.2) Active confirmed Problem Seasonal allergy (395835996) Seasonal allergies (J30.2) Active confirmed Problem Anxiety (92416896) Anxiety (F41.9) Active confirmed Problem Chronic diastolic heart failure (159864956) Chronic diastolic (congestive) heart failure (I50.32) Active confirmed Problem Obstructive sleep apnea (27984790) Obstructive sleep apnea (G47.33) Active confirmed Problem Vertigo (698872253) Vertigo (R42) Active confirmed Problem Obesity due to excess calories (765622766) Other obesity due to excess calories (E66.09) Active confirmed Problem Urge incontinence of urine (15537873) Urge incontinence (N39.41) Active confirmed Problem Microalbuminuria (984195747) Microalbuminuria (R80.9) Active confirmed Problem Mild recurrent major depression (63297555) Major depressive disorder, recurrent, mild (F33.0) Active confirmed Problem Diabetic renal disease (236321379) Type 2 diabetes mellitus with diabetic chronic kidney disease (E11.22) Active confirmed Problem Essential hypertension (87187513) Essential (primary) hypertension (I10) Active confirmed Problem Spinal cord disorder (24967659) Other specified diseases of spinal cord (G95.89) Active confirmed Dr. Mario Boyle 05/10/22 Problem CSG - Chronic superficial gastritis (983148065) Chronic superficial gastritis without bleeding (K29.30) Active confirmed Problem Irritable bowel syndrome (61026113) Irritable bowel syndrome without diarrhea (K58.9) Active confirmed Problem Spinal stenosis in cervical region (12239090) Spinal stenosis, cervical region (M48.02) Active confirmed Problem Presence of othe r specified devices (Z97.8) Active confirmed pain pump managed by pain management in [place] Problem Atherosclerosis of coronary artery without angina pectoris (089440115472692) Atherosclerosis of [place] coronary artery of [place] heart without angina pectoris (I25.10) Active confirmed Problem Lumbosacral spondylosis without myelopathy (17033007) Spondylosis of lumbar region without myelopathy or radiculopathy (M47.816) Active confirmed Problem Gastroesophageal reflux disease (disorder) (078085271) Chronic GERD (K21.9) Active confirmed Problem Type 2 diabetes mellitus with peripheral angiopathy (190314889) Type 2 diabetes mellitus with diabetic peripheral angiopathy without gangrene, without long-term current use of insulin (E11.51) Active confirmed PVR screeni ng abnormal 05/23/23 Problem Type 2 diabetes mellitus with other specified complication, without long-term current use of insulin (E11.69) Active confirmed related to dyslipidemia and obesity Problem Opioid dependence (85184702) Opioid dependence, daily use (F11.20) Active confirmed Problem Polyneuropathy due to type 2 diabetes mellitus (497397547) Type 2 diabetes mellitus with diabetic polyneuropathy, without long-term current use of insulin (E11.42) Active confirmed Problem Chronic kidney disease stage 2 (262624023) Stage 2 chronic kidney disease (N18.2) Active confirmed Problem Diabetic neuropathic arthropathy (205796647) Type 2 diabetes mellitus with diabetic neuropathic arthropathy, without long-term current use of insulin (E11.610) Active confirmed Problem Primary osteoarthritis (235864310) Primary osteoarthritis involving multiple joints (M15.9) Active confirmed Vital Signs Heart Rate 70 /min 06/24/2024 SPerez [employer] Temperature 98.1 degrees Fahrenheit 06/24/2024 SPer ez [employer] Respiratory Rate 16 /min 06/24/2024 S[facility] [employer] Oximetry 95 % 06/24/2024 [employer] [employer] Blood pressure diastolic 72 mm Hg 06/24/2024 [place] [employer] SERV[employer] Height 60 inches 06/24/2024 [employer] [employer] Blood pressure systolic 130 mm Hg 06/24/2024 SPer ez [employer] SERVIC[employer] Weight 181 lbs 06/24/2024 [employer] [employer] BMI 35.35 kg/m2 06/24/2024 [employer] [employer] Encounters Encounter Location Date Provider Diagnosis [facility] [address] [place] [id number] 05/27/2024 Anna Jules Obstructive sleep apnea G47.33 [facility] [address] [place] [id number] 06/05/2024 Yenny Tellez Type 2 diabetes mellitus with diabetic chronic kidney disease E11.22 ; Type 2 diabetes mellitus with diabetic peripheral angiopathy without gangrene, without long-term current use of insulin E11.51 ; Essential (primary) hypertension I10 ; Dyslipidemia E78.5 ; Stage 2 chronic kidney disease N18.2 and Adult general medical exam Z00.00 [facility] [address] [place] [address] 06/24/2024 Yenny Tellez Essential (primary) hypertension I10 ; Mixed hyperlipidemia E78.2 ; Acute cough R05.1 ; Seasonal allergies J30.2 ; Chronic diastolic (congestive) heart failure I50.32 ; Type 2 diabetes mellitus with other specified complication, without long-term current use of insulin E11.69 ; Microalbuminuria R80.9 ; Type 2 diabetes mellitus with diabetic polyneuropathy, without long-term current use of insulin E11.42 ; Type 2 diabetes mellitus with diabetic neuropathic arthropathy, without long-term current use of insulin E11.610 ; Atherosclerosis of [place] coronary artery of [place] heart without angina pectoris I25.10 ; Irritable bowel syndrome without diarrhea K58.9 ; Chronic GERD K21.9 ; Chronic superficial gastritis without bleeding K29.30 ; Vertigo R42 ; Anxiety F41.9 ; Major depressive disorder, recurrent, mild F33.0 ; Primary osteoarthritis involving multiple joints M15.9 ; Spinal stenosis, cervical region M48.02 ; Spondylosis of lumbar region without myelopathy or radiculopathy M47.816 ; Urge incontinence N39.41 ; Menopausal and female climacteric states N95.1 ; Other obesity due to excess calories E66.09 ; Chronic anemia D64.9 and Osteopenia, unspecified location M85.80 [facility] [address] [place] [address] 07/02/2024 Yenny Tellez [facility] [address] [place] [address] 05/26/2024 Anna Jules Obstructive sleep apnea G47.33 [facility] [address] [place] [address] 06/03/2024 Anna Jules [facility] [address] [place] [address] 07/02/2024 Yenny Tellez [facility] [address] [place] [address] 08/28/2024 Anna Jules [place] [address] [place] [address] 11/18/2024 Anna Jules [facility] [address] [place] [address] 11/30/2024 Yenny Tellez Essential (primary) hypertension I10 and Major depressive disorder, recurrent, mild F33.0 Assessments Encounter Date Diagnosis (ICD Code) Assessment Notes Treatment Notes Treatment Clinical Notes Section Notes 05/26/2024 Obstructive sleep apnea (ICD-10 - G47.33) 05/27/2024 Obstructive sleep apnea (ICD-10 - G47.33) see HPI 06/05/2024 Type 2 diabetes mellitus with diabetic chronic kidney disease (ICD-10 - E11.22) 06/24/2024 Essential (primary) hypertension (ICD-10 - I10) Stable per vitals Continue current medications as prescribedEKG in office showed sinus rhythm at 70 bpmContinue following a low-sodium dietContinue monitoring blood pressure daily 11/30/2024 Essential (primary) hypertension (ICD-10 - I10) 11/30/2024 Major depressive disorder, recurrent, mild (ICD-10 - F33.0) 06/24/2024 Mixed hyperlipidemia (ICD-10 - E78.2) Stable per labsContinue current medications as prescribedContinue following a low fati diet 06/05/2024 Type 2 diabetes mellitus with diabetic peripheral angiopathy without gangrene, without long-term current use of insulin (ICD-10 - E11.51) 06/05/2024 Essential (primary) hypertension (ICD-10 - I10) 06/24/2024 Acute cough (ICD-10 - R05.1) Active with intermittent symptoms post recent URI Start benzonatate 100 mg 3 times daily x 5 days 06/24/2024 Seasonal allergies (ICD-10 - J30.2) Stable on medicationContinue fluticasone nasal spray as needed Continue montelukast as prescribed 06/05/2024 Dyslipidemia (ICD-10 - E78.5) 06/05/2024 Stage 2 chronic kidney disease (ICD-10 - N18.2) 06/24/2024 Chronic diastolic (congestive) heart failure (ICD-10 - I50.32) Stable, no current shortness of breath or lower extremity edemaWill continue to monitor patient 06/05/2024 Adult general medical exam (ICD-10 - Z00.00) 06/24/2024 Type 2 diabetes mellitus with other specified complication, without long-term current use of insulin (ICD-10 - E11.69) related to dyslipidemia and obesity At goal of hemoglobin A1c less than 7 Continue metformin 500 mg twice dailyContinue following an ADA dietWill repeat hemoglobin A1c in 3 months 06/24/2024 Microalbuminuria (ICD-10 - R80.9) Stable per labsWill continue to monitor patient 06/24/2024 Type 2 diabetes mellitus with diabetic polyneuropathy, without long-term current use of insulin (ICD-10 - E11.42) c 06/24/2024 Type 2 diabetes mellitus with diabetic neuropathic arthropathy, without long-term current use of insulin (ICD-10 - E11.610) Stable, no current chest pain or shortness of breath Continue atorvastatin calcium 10 mg daily Continue to follow a low-fat diet 06/24/2024 Atherosclerosis of [place] coronary artery of [place] heart without angina pectoris (ICD-10 - I25.10) Stable, no current chest pain or shortness of breathContinue statin therapy as prescribed 06/24/2024 Irritable bowel syndrome without diarrhea (ICD-10 - K58.9) Stable, no current diarrhea or constipation notedContinue xtwp-suk-dqedzyy medications as needed 06/24/2024 Chronic GERD (ICD-10 - K21.9) Stable on medicationContinue omeprazole 40 mg dailyContinue following a GERD diet 06/24/2024 Chronic superficial gastritis without bleeding (ICD-10 - K29.30) Stable, no current epigastric painContinue omeprazole 40 mg as prescribed for GERDContinue following a GERD diet 06/24/2024 Vertigo (ICD-10 - R42) Stable, no current issuesWill continue to monitor patient 06/24/2024 Anxiety (ICD-10 - F41.9) Stable, no current issuesWill continue to monitor patient 06/24/2024 Major depressive disorder, recurrent, mild (ICD-10 - F33.0) Stable on medicationCurrent PHQ-9 score is a 4 showing minimal depressionContinue sertraline 100 mg as prescribed 06/24/2024 Primary osteoarthritis involving multiple joints (ICD-10 - M15.9) Stable on medicationContinue baclofen as prescribedContinue jejk-zuq-ifeovky analgesics as needed for pain 06/24/2024 Spinal stenosis, cervical region (ICD-10 - M48.02) Stable on medicationContinue baclofen as prescribedContinue cwjx-hei-dzzvtaq analgesics as needed for pain 06/24/2024 Spondylosis of lumbar region without myelopathy or radiculopathy (ICD-10 - M47.816) Stable on medicationContinue baclofen as prescribedContinue sebc-nok-vjdhiqz analgesics as needed for pain 06/24/2024 Urge incontinence (ICD-10 - N39.41) Stable, no current issues at this timeUrinalysis was negativeWill continue to monitor patient 06/24/2024 Menopausal and female climacteric states (ICD-10 - N95.1) Stable on medicationContinue Premarin as prescribedWill continue to monitor 06/24/2024 Other obesity due to excess calories (ICD-10 - E66.09) Unstable per BMIAdvised patient to lower caloric intake daily and exercise 2-3 times weekly as toleratedFollow up in for weight recheck 06/24/2024 Chronic anemia (ICD-10 - D64.9) Stable per labs Continue ferrous sulfate as prescribedWill continue to monitor patient 06/24/2024 Osteopenia, unspecified location (ICD-10 - M85.80) Active per last bone density on filePatient states she [facility] Continue Fosamax as prescribed 06/19/2024 Other I have reviewed and updated the HPI, Current Medications, PFSH, ROS, and Preventive Medicine Screening done by ancillary staff. Patient was given a personalized prevention plan. 06/24/2024 Other I have reviewed and updated the HPI, Current Medications, PFSH, ROS, and Preventive Medicine Screening done by ancillary staff. Patient was given a personalized prevention plan. 07/02/2024 Other Medication Alert: Oral hypoglycemics with an A1c < 6.5% Assessment: - Pt is currently taking: Metformin 500mg twice daily, possibly Jardiance 10mg daily - 06/05/24: A1c: 6.1% (05/13/23: A1c: 5.9%) - 06/05/24: Scr: 0.74 - 06/05/24: eGFR: 81 ml/min - 06/05/24: UACR: 105 mg/g cre2024 Refills Metformin: 05/04/24: qty 180/90d, Jardiance 10mg daily: 06/27/24, qty 30/30d, 06/04/24: qty 30/30d Pharmacist Recommendation : - I was unable to find documention of initiating Jardiance therapy (not listed on recent medication lists) - Attempted to contact patient to verify, but got VM - If Jardiance is an active medication, consider dose reduction of Metformin to 500mg daily given age and risk of hypoglycemia. _update: Pt called back, Jardiance is an active medication. consider dose reduction of Metformin to 500mg daily given age and risk of hypoglycemia. Plan Of Treatment No Information Insurance Providers Payer Name Payer Address Payer Phone Subscriber Number Group Number Insured Name Patient Relationship to Insured Coverage Start Date Coverage End Date [employer] FFS MCR. ADV. PPO [address] [address] [place] [address] [id number] [id number] APPIAH Self - patient is the insured 1 [facility] FED FFS COMMERCIAL [address] [place] [address] [id number] YUMI APPIAH Self - patient is the insured 8 Medications Administered Medication Instructions Date of Administration Dosage Notes dexamethasone 05/05/2018 0.5 mL Vitamin B12 (Cyanocobalamin) 1000mcg/ml 07/12/2021 1000 ug Medical (General) History Medical History History ICD Code HTN hypercholestrolemia GERD anxiety disorder depression DJD of Cervical Spine Hyperglycaemia NOS DM Type 2 controlled* Personal history of colonic polyps Z86.0 10 Surgical History Surgery Date(Month/Year) appendectomy tubal ligation hysterectomy cholecystectomy elbow carpal tunnel trigger finger cyst removal C section knee replacement Left breast reductuion 08-15-09 Orthroscopy lt knee surg 02-28-10 back surg arthrscopic Rt knee Knee replacement right 04-02-12 colonoscopy 2010 Hospitalization History Reason Date(Month/Year) formerly [facility] 04/2015
--- OUTSIDE RECORDS SUMMARY | 2025-01-20 09:18 | XMS_ITS | Clinical Summary ---
Author Organization [facility] Address [address] [place] [address] Care Team Providers Care Skilled Laborer Name Role Phone Jordan Johnson MD Primary Care Provider + [phone] Vasiliy Gonzalez MD Unavailable Mateus Marquez MD Unavailable [phone] Allergies Active Allergy Reactions Criticality Noted Date Comments Contrast Dye Hives Medium 07/22/2020 Iodinated Contrast Media Hives Medium 07/22/2020 Iodine Hives Medium 04/16/2019 Shellfish Protein-Containing Drug Products 02/23/2021 States had a strange sensation - [...] by mouth every night. Active HYDROcodone-magy taminophen ([place]) 5-325 MG tablet Take 1 tablet by [...] patient's age to complete this topic Insurance [facility] MEDICARE ADVANTAGE [facility] Care Teams Skilled Laborer Relationship Specialty Start Date End Date Jordan Johnson MD [address] [facility] [address] [place] [id number] PCP - General Family Medicine 07/04/20 [place] [address] [place] [address] [address] Referring Physician Orthopaedic Surgery 10/23/21 Mateus Marquez MD [address] [place] [address] Referring Physician Orthopaedic Surgery 10/31/21
--- OUTSIDE RECORDS SUMMARY | 2025-01-20 09:18 | XMS_ITS | Clinical Summary ---
Author Organization [facility] [place] [address] Care Team Providers Care Marketing Technology Specialist Name Role Phone Jordan Johnson MD Primary Care Provider [phone] Allergies Active Allergy Reactions Criticality Noted Date [...] this topic Medical Devices Implanted Type Area Retail Representative Device Identifier Shelf Expiration Date Model / Serial / Lot Graft Bone I-Factor 5ml [id number] - [id number] Implanted:Qty: 1 on 03/15/2021 by Mario Boyle MD at [facility] BMP N/A: Spine Lumbar [employer] 08/09/2023 [id number] / / [id number] Graft Bone I-Factor 1ml [id number] - [id number] Implanted:Qty: 1 on 03/15/2021 by Mario Boyle MD at [facility] BMP N/A: Spine Lumbar [employer] 10/09/2023 [id number] / / [id number] Graft Bone Infuse L Ii [id number] - [id number] Implanted:Qty: 1 on 03/17/2021 by Mario Boyle MD at [facility] BMP [employer] SO[employer]AMOR DANEK 06/08/2022 [id number] / / [id number] Cage 22x45 [id number] 2g2 - [id number] Implanted:Qty: 1 on 03/15/2021 by Mario Boyle MD at [facility] Cages N/A: Spine Lumbar [employer] 10/24/2024 [id number] / / [id number] Cag 68q08m29 [id number] 2g2 - [id number] Implanted:Qty: 1 on 03/15/2021 by Mario Boyle MD at [facility] Cages N/A: Spine Lumbar [employer] 03/29/2024 [id number] 12G2 / / [id number] Connector Lat 5.5x 25 [id number] - [id number] Implanted:Qty: 3 on 03/17/2021 by Mario Boyle MD at [facility] Connectors [employer] [id number] / / Connector Set Screw [id number] - [id number] Implanted:Qty: 3 on 03/17/2021 by Mario Boyle MD at [facility] Connectors [employer] [id number] / / Graft Canc Chip 30 649530 - [id number] Implanted:Qty: 1 on 03/17/2021 by Mario Boyle MD at [facility] Grafts [employer] SPINAL GRAFT TECH 05/11/2025 [id number] / [id number] / [id number] Graft Canc Chip 30 [id number] - [id number] Implanted:Qty: 1 on 03/17/2021 by Mario Boyle MD at [facility] Grafts [employer] SPINAL GRAFT TECH 05/13/2025 [id number] / [id number] / [id number] Graft Canc Chip 30 061605 - [id number] Implanted:Qty: 1 on 03/17/2021 by Mario Boyle MD at [facility] Grafts [employer] SPINAL GRAFT TECH 05/12/2025 383154 / [id number] / [id number] Graft Canc Chip 30 [id number] - [id number] Implanted:Qty: 1 on 03/17/2021 by Mario Boyle MD at [facility] Grafts [employer] SPINAL GRAFT TECH 05/03/2025 [id number] / [id number] / [id number] Kit Sealant Surgiflo Mtrx 2994 - [id number] Implanted:Qty: 1 on 03/17/2021 by Mario Boyle MD at [facility] OTHER - IMPLANTS - OTHER J 08/08/2022 2994 / / [id number] Kit Sealant Surgiflo Mtrx 2994 - [id number] Implanted:Qty: 4 on 03/17/2021 by Mario Boyle MD at [facility] OTHER - IMPLANTS - OTHER J 07/08/2022 2994 / / [id number] Sealant Oofvggt40 [id number] - [id number] Implanted:Qty: 1 on 03/17/2021 by Mario Boyle MD at [facility] OTHER - IMPLANTS - OTHER SALGADO 10/28/2022 [id number] / / [id number] John 5.5 Ti Alloy [id number] - [id number] Implanted:Qty: 2 on 03/17/2021 by Mario Boyle MD at [facility] Rods [employer] [id number] / / Screw Solra 5.5x40 [id number] - [id number] Implanted:Qty: 5 on 03/17/2021 by Mario Boyle MD at [facility] Screws [employer] [id number] / / Screw Solra 5.5x45 [id number] - [id number] Implanted:Qty: 5 on 03/17/2021 by Mario Boyle MD at [facility] Screws [employer] [id number] / / Screw Solra 7.5x40 [id number] - [id number] Implanted:Qty: 2 on 03/17/2021 by Mario Boyle MD at [facility] Screws [employer] [id number] / / Screw Solra 7.5x45 [id number] - [id number] Implanted:Qty: 4 on 03/17/2021 by Mario Boyle MD at [facility] Screws [employer] [id number] / / Screw Set Solra 5.5 [id number] - [id number] Implanted:Qty: 18 on 03/17/2021 by Mario Boyle MD at [facility] Screws [employer] [id number] / / Screw Bal 8.5x80m [id number] - [id number] Implanted:Qty: 2 on 03/17/2021 by Mario Boyle MD at [facility] Screws [employer] [id number] / / Shunt Spetzler Lumar [id number] - [id number] Implanted:Qty: 1 on 03/17/2021 by Dex Pihllips MD at 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
--- NOTE | 2025-01-20 09:22 | XR_ITS ---
FINAL REPORT TECHNIQUE: Bone densitometry calculations of the lumbar spine and left hip were obtained. CLINICAL HISTORY: .post menopausal FINDINGS: Using one third radius, the bone mineral density of the radius is 0.5-2 g/cm2, corresponding to T-score of 2.9. Using the left hip, the bone mineral density of the femoral neck is 0.825 g/cm2, corresponding to a T-score of -1.0. NOTE: T-score: Standard deviation compared with peak bone mass of young adult mean. *Following the recommendations of the International Society of Bone densitometry, classification of hip BMD is based on the lower of two T-scores; total hip or femoral neck. IMPRESSION: Normal bone mineral density of the left hip. Diminished bone mineral density of the radius consistent with osteoporosis. FRAX was not reported because some of the T-scores are at or above -1.0. Patient is being treated for osteoporosis. Reviewed, Interpreted and Dictated by Etienne Vásquez MD Transcribed by Lurdes Damian Authenticated and [facility]
--- NOTE | 2025-01-20 09:22 | MM_ITS ---
PROCEDURE INFORMATION: Exam: MG Bilateral Screening 3D Mammography Exam date and time: 01/20/2025 9:28 AM Age: 84 years old Clinical indication: Screening examination TECHNIQUE: Imaging protocol: Bilateral Screening tomosynthesis and 2D mammography including computer-aided detection (CAD) when performed. COMPARISON: 1. MG MM DIG SCREENING MAMM BI W/CAD 01/20/2024 4:18 PM 2. MG MM DIG SCREENING MAMM BI W/CAD 12/26/2022 2:35 PM FINDINGS: MAMMOGRAPHY: Breast composition: There are scattered areas of fibroglandular density. Mass: No suspicious masses. Architectural distortion: None. Calcifications: No suspicious calcifications. Asymmetric density: None. Skin thickening: None. Axillary adenopathy: None. IMPRESSION: No mammographic evidence of malignancy. Annual screening is recommended unless otherwise clinically indicated. ASSESSMENT: BI-RADS Category 1: Negative.
== END 2025-01-20 23:59 | disposition home or self-care (01) ==
LOC: RAD 09:14
PROVIDERS: PCP Family Medicine; Visit Provider Physician Assistant
DX: Z12.31 Encounter for screening mammogram for malignant neoplasm of breast (principal); M81.0 Age-related osteoporosis without current pathological fracture; R92.323 Mammographic fibroglandular density, bilateral breasts
CPT/HCPCS: 77063; 77067; 77080